=== PATIENT | female | born 1970 | race Caucasian/White ===

== ENCOUNTER 2022-12-12 16:08 | Inpatient (IN) ==
[2022-12-12] MEDS ORDERED: ALBUT/IPRATROP 3MG/0.5MG NEB 3 ML VIAL NEB ONE (16:25)
--- NOTE | 2022-12-12 16:46 | Emergency Department Note ---
Impression & Plan Acute respiratory distress, Pleural effusion, Hypoxia, Lung cancer ED Provider Note NAME: NELLI CLEMENT AGE: 52 SEX: F : 1970 ARRIVES VIA: Walk-In INFORMANT: Patient, ED PROVIDER(S): Horacio Balderas DO CHIEF COMPLAINT: Shortness of breath HPI: The patient is a 52-year-old female who presented to the emergency department through triage for an evaluation of shortness of breath. The patient has a recent diagnosis of lung cancer. This was found on a CAT scan that she had recently. She was also diagnosed with pulmonary embolism. She states that she does take blood thinners now. She states that she has been compliant with her outpatient medications. She denies having any lower extremity swelling but started noticing cough and worsening issues breathing over the last 24 hours. The patient states that she has not been seen by her family doctor for the symptoms. She has noticed a productive cough as well as blood-tinged sputum. She denies having any abdominal pain. She denies having any dysuria or frequency. ROS: See above HPI for pertinent positives & negatives. A total of 10 systems reviewed and were otherwise negative. PAST MEDICAL HISTORY: See Below PAST SURGICAL HISTORY: See Below FAMILY HISTORY: See Below SOCIAL HISTORY: See Below HOME MEDICATIONS: See Below ALLERGIES: See Below VITALS: See Below PHYSICAL EXAMINATION: GENERAL: The patient is awake and alert. She is very anxious. EYES: The conjunctivae are clear. The pupils are round and reactive. EARS, NOSE, MOUTH AND THROAT: The nose is without any evidence of any deformity. NECK: The neck is nontender and supple. RESPIRATORY: Diminished breath sounds are noted especially in the right lung field. There is significant tachypnea as well as conversational dyspnea. CARDIOVASCULAR: Tachycardic and regular heart sounds were noted to auscultation. GASTROINTESTINAL: The abdomen is soft. Abdomen is nontender. MUSCULOSKELETAL/EXTREMITIES: There is no evidence of gross deformity full range of motion is noted in the hips and shoulders. SKIN: Skin was cool and dry. Skin was mottled. Clubbing was noted in the hands. NEUROLOGIC: Patient is awake alert and oriented x3 MEDICAL DECISION MAKING: The patient is a 52-year-old female who presented to the emergency department fo r an evaluation of difficulty breathing. The patient was recently diagnosed with right-sided lung cancer with complications of pulmonary embolism as well as pleural effusion. The patient states that she started having worsening shortness of breath especially over the last few days. This became much worse today. She presented in extremis with hypoxia and tachypnea. She was placed on supplemental oxygen. She was also given a DuoNeb. On reevaluation she was much better in appearance. Her white blood cell count was elevated. Inflammatory markers were suggestive of a infection so she was covered with an antibiotic and blood cultures were obtained. She was treated with IV fluids as well. On reevaluation she was significantly improved but still was not able to be discharged home. For this reason I discussed her condition with the on-call [facility]. They have agreed to evaluate the patient in the emergency department for further management and disposition. Triage Nursing notes reviewed. Prior medical records reviewed Vital Signs: reviewed and remarkable for tachycardia and hypoxia. Differential diagnosis: Reactive airway disease, pneumonia, pneumothorax, COPD, CHF, infections, cardiac ischemia, pulmonary embolism, musculoskeletal, gastrointestinal, as well as other pathologies. ER treatment provided: See below Diagnostics interpreted by me: ECG: EKG was obtained in the emergency department. My interpretation is sinus tachycardia [address] segment depression was noted with low voltage. No previous tracing was available. Cardiac Monitoring: An order was placed for continuous cardiac monitoring. The monitor shows a rate of 116 bpm with sinus tachycardia. Laboratory studies: As stated above and show below. Imaging studies: See below. Radiographic imaging was reviewed by myself Consultation(s): I discussed this case with Dr. Leonard who is on-call for the [facility] group. ED COURSE: Procedures: none Critical Care: I have personally spent greater than 45 minutes of critical care time in the direct management of this patient. This includes bedside care, interpretation of diagnostic studies, and testing, discussion with consultants, patient, and family members, and other required patient management activities. This 45 minutes is in excess of all separately billable procedures. Past Med/Surg History Medical History Degenerative disc disease FHx: diabetes mellitus Lung cancer Pulmonary embolism Social History Smoking Status: Current every day smoker Feels Safe at Home: Yes Allergies Allergies Allergy/AdvReac Type Severity Reaction Status Date / Time No Known Allergies Allergy Unverified 12/12/22 17:04 Home Meds Home Medications Medication Instructions Recorded Confirmed albuterol sulfate 90 mcg/actuation 2 puff inhalation QID PRN 12/12/22 12/12/22 aerosol inhaler Shortness Of Breath Or Wheezing apixaban 5 mg tablet (Eliquis) 5 mg PO BID 12/12/22 12/12/22 duloxetine 30 mg capsule,delayed 30 mg PO DAILY 12/12/22 12/12/22 release fluticasone furoate 100 1 inh inhalation DAILY 12/12/22 12/12/22 mcg-vilanterol 25 mcg/dose inhalation powder (Breo Ellipta) guaifenesin 100 mg/5 mL oral liquid 200 mg PO Q4H PRN Cough 12/12/22 12/12/22 lorazepam 0.5 mg tablet 0.5 mg PO TID PRN Anxiety 12/12/22 12/12/22 melatonin 10 mg capsule 10 mg PO HS 12/12/22 12/12/22 oxycodone-acetaminophen 5 mg-325 1 tab PO Q6H PRN moderate pain 4-6 12/12/22 12/12/22 mg tablet scale prednisone 10 mg tablets in a dose 10 mg PO DIRECTED 12/12/22 12/12/22 pack Results & Data (ED) Vital Signs Vital Signs - 24 hr 12/12/22 16:15 12/12/22 16:37 12/12/22 16:38 Temperature 36.5 C Temperature Source Temporal Artery Scan Pulse Rate 121 H Pulse Rate [Apical] 121 H 126 H Pulse Rhythm Regular Respiratory Rate 22 22 28 H Respiratory Effort / Characteristics Non-Labored Spontaneous Spontaneous Labored Respiratory Depth Normal Blood Pressure 120/79 Blood Pressure [Right Arm] 108/64 Blood Pressure Mean 92 Blood Pressure Mean [Right Arm] 78 Pulse Oximetry 84 L 90 93 Oxygen Delivery Method Nasal Cannula Nasal Cannula Nebulizer Oxygen Flow Rate 15 13 9 Sepsis Recent Fever Within 48 Hours No Sepsis New/Unexplained Change in Mental Status No Sepsis Action Taken by Nursing Physician Notified 12/12/22 16:39 12/12/22 16:43 12/12/22 17:50 Temperature Temperature Source Pulse Rate 125 H Pulse Rate [Apical] 116 H Pulse Rhythm Respiratory Rate 20 Respiratory Effort / Characteristics Non-Labored Respiratory Depth Normal Blood Pressure Blood Pressure [Right Arm] 117/64 Blood Pressure Mean Blood Pressure Mean [Right Arm] 81 Pulse Oximetry 97 90 Oxygen Delivery Method Nebulizer Nebulizer Oxygen Flow Rate 9 8 Sepsis Recent Fever Within 48 Hours Sepsis New/Unexplained Change in Mental Status Sepsis Action Taken by [facility] Medications Current Medication List: was personally reviewed by me Laboratory Data Attestation: I reviewed the patient's lab results. 12/12/22 16:35 12/12/22 16:35 Lab Results 12/12/22 12/12/22 12/12/22 Range/Units 16:35 16:35 16:35 WBC 19.76 H (4.8-10.8) K/ul RBC 4.57 (4.20-5.40) M/uL Hgb 12.0 (12.0-16.0) g/dl POC Hgb (12.0-16.0) g/dl Hct 37.4 (37.0-47.0) % POC Hct (37-47) % MCV 81.8 (80.0-100.0) fL MCH 26.3 (25.0-34.0) pg MCHC 32.1 (32.0-36.0) g/dL RDW Std Deviation 56.4 H (36.4-46.3) fL RDW Coeff of Sarahi 19.8 H (11.5-14.5) % Plt Count 374 (130-400) K/uL MPV 10.5 (9.4-12.4) fL Immature Gran % (Auto) 0.6 % Neut % (Auto) 89.7 % Lymph % (Auto) 2.9 % [place] % (Auto) 6.7 % Eos % (Auto) 0.0 % Baso % (Auto) 0.1 % Neut # (Auto) 17.73 H (1.40-6.50) K/uL Lymph # (Auto) 0.57 L (1.2-3.4) K/uL [place] # (Auto) 1.33 H (0.11-0.59) K/uL Eos # (Auto) 0.00 (0-0.50) K/uL Baso # (Auto) 0.01 (0-0.2) K/uL Immature Gran # (Auto) 0.12 (0.01-0.20) K/uL PT 16.1 H (9.0-12.0) Seconds INR 1.5 H (0.9-1.1) APTT 24.4 (21.0-31.0) Seconds PTT Ratio 0.9 VBG pH (7.36-7.41) VBG pCO2 (38-50) mmHg VBG pO2 mmHg VBG HCO3 mmol/L VBG O2 Saturation % VBG Base Excess mEq/L POC Sodium (135-144) mmol/L Sodium (136-145) mmol/L POC Potassium (3.3-5.0) mmol/L Potassium (3.5-5.1) mmol/L POC Chloride (101-112) mmol/L Chloride (98-107) mmol/L Carbon Dioxide (21-32) mmol/L POC Total CO2 (24-31) mmol/L Anion Gap (3-11) POC Anion Gap (16-25) mmol/L POC BUN (7-18) mg/dl BUN (6-23) mg/dl Creatinine (0.6-1.2) mg/dl POC Creatinine (0.6-1.3) mg/dl Est Cr Clr Drug Dosing ml/min Est GFR ( Amer) ml/min Est GFR (Non-Af Amer) ml/min BUN/Creatinine Ratio (10-20) Glucose (70-99(Fasting)) mg/dl POC Glucose (other) (70-99) mg/dl Lactate (0.4-2.0) mmol/L Calcium (8.6-10.3) mg/dl POC Ioniz Calcium Jose Raul (1.12-1.32) mmol/l Magnesium (1.7-2.4) mg/dl Total Bilirubin (0.2-1.0) mg/dl Direct Bilirubin (0-0.2) mg/dl AST (13-39) U/L ALT (7-52) U/L Alkaline Phosphatase (34-104) U/L Troponin I High Sens (0-14) pg/ml Total Protein (6.0-8.3) gm/dl Albumin (3.4-5.0) gm/dl Procalcitonin (0-0.5) ng/ml SARS-CoV-2 (PCR) (Negative) Influenza Type A (PCR) (Neg) Influenza Type B (PCR) (Neg) RSV (RT-PCR) (Neg) Blood Type O Positive Antibody Screen NEGATIVE 12/12/22 12/12/22 12/12/22 Range/Units 16:35 16:35 16:35 WBC (4.8-10.8) K/ul RBC (4.20-5.40) M/uL Hgb (12.0-16.0) g/dl POC Hgb (12.0-16.0) g/dl Hct (37.0-47.0) % POC Hct (37-47) % MCV (80.0-100.0) fL MCH (25.0-34.0) pg MCHC (32.0-36.0) g/dL RDW Std Deviation (36.4-46.3) fL RDW Coeff of Sarahi (11.5-14.5) % Plt Count (130-400) K/uL MPV (9.4-12.4) fL Immature Gran % (Auto) % Neut % (Auto) % Lymph % (Auto) % [place] % (Auto) % Eos % (Auto) % Baso % (Auto) % Neut # (Auto) (1.40-6.50) K/uL Lymph # (Auto) (1.2-3.4) K/uL [place] # (Auto) (0.11-0.59) K/uL Eos # (Auto) (0-0.50) K/uL Baso # (Auto) (0-0.2) K/uL Immature Gran # (Auto) (0.01-0.20) K/uL PT (9.0-12.0) Seconds INR (0.9-1.1) APTT (21.0-31.0) Seconds PTT Ratio VBG pH (7.36-7.41) VBG pCO2 (38-50) mmHg VBG pO2 mmHg VBG HCO3 mmol/L VBG O2 Saturation % VBG Base Excess mEq/L POC Sodium (135-144) mmol/L Sodium 135 L (136-145) mmol/L POC Potassium (3.3-5.0) mmol/L Potassium 4.2 (3.5-5.1) mmol/L POC Chloride (101-112) mmol/L Chloride 92 L (98-107) mmol/L Carbon Dioxide 29 (21-32) mmol/L POC Total CO2 (24-31) mmol/L Anion Gap 14 H (3-11) POC Anion Gap (16-25) mmol/L POC BUN (7-18) mg/dl BUN 29 H (6-23) mg/dl Creatinine 0.61 (0.6-1.2) mg/dl POC Creatinine (0.6-1.3) mg/dl Est Cr Clr Drug Dosing 88.9 ml/min Est GFR ( Amer) 120.0 ml/min Est GFR (Non-Af Amer) 103.5 ml/min BUN/Creatinine Ratio 47.5 H (10-20) Glucose 125 H (70-99(Fasting)) mg/dl POC Glucose (other) (70-99) mg/dl Lactate 5.1 H* (0.4-2.0) mmol/L Calcium 8.8 (8.6-10.3) mg/dl POC Ioniz Calcium Jose Raul (1.12-1.32) mmol/l Magnesium 1.9 (1.7-2.4) mg/dl Total Bilirubin 0.8 (0.2-1.0) mg/dl Direct Bilirubin 0.2 (0-0.2) mg/dl AST 34 (13-39) U/L ALT 26 (7-52) U/L Alkaline Phosphatase 262 H (34-104) U/L Troponin I High Sens 19.8 H (0-14) pg/ml Total Protein 5.9 L (6.0-8.3) gm/dl Albumin 2.9 L (3.4-5.0) gm/dl Procalcitonin 69.04 H (0-0.5) ng/ml SARS-CoV-2 (PCR) (Negative) Influenza Type A (PCR) (Neg) Influenza Type B (PCR) (Neg) RSV (RT-PCR) (Neg) Blood Type Antibody Screen 12/12/22 12/12/22 12/12/22 Range/Units 16:35 16:42 16:42 WBC (4.8-10.8) K/ul RBC (4.20-5.40) M/uL Hgb (12.0-16.0) g/dl POC Hgb 13.3 (12.0-16.0) g/dl Hct (37.0-47.0) % POC Hct 39 (37-47) % MCV (80.0-100.0) fL MCH (25.0-34.0) pg MCHC (32.0-36.0) g/dL RDW Std Deviation (36.4-46.3) fL RDW Coeff of Sarahi (11.5-14.5) % Plt Count (130-400) K/uL MPV (9.4-12.4) fL Immature Gran % (Auto) % Neut % (Auto) % Lymph % (Auto) % [place] % (Auto) % Eos % (Auto) % Baso % (Auto) % Neut # (Auto) (1.40-6.50) K/uL Lymph # (Auto) (1.2-3.4) K/uL [place] # (Auto) (0.11-0.59) K/uL Eos # (Auto) (0-0.50) K/uL Baso # (Auto) (0-0.2) K/uL Immature Gran # (Auto) (0.01-0.20) K/uL PT (9.0-12.0) Seconds INR (0.9-1.1) APTT (21.0-31.0) Seconds PTT Ratio VBG pH 7.49 H (7.36-7.41) VBG pCO2 42 (38-50) mmHg VBG pO2 22 mmHg VBG HCO3 32 mmol/L VBG O2 Saturation < 60.0 % VBG Base Excess 7.8 mEq/L POC Sodium 131 L (135-144) mmol/L Sodium (136-145) mmol/L POC Potassium 4.1 (3.3-5.0) mmol/L Potassium (3.5-5.1) mmol/L POC Chloride 92 L (101-112) mmol/L Chloride (98-107) mmol/L Carbon Dioxide (21-32) mmol/L POC Total CO2 28 (24-31) mmol/L Anion Gap (3-11) POC Anion Gap 16.0 (16-25) mmol/L POC BUN 26 H (7-18) mg/dl BUN (6-23) mg/dl Creatinine (0.6-1.2) mg/dl POC Creatinine 0.7 (0.6-1.3) mg/dl Est Cr Clr Drug Dosing ml/min Est GFR ( Amer) ml/min Est GFR (Non-Af Amer) ml/min BUN/Creatinine Ratio (10-20) Glucose (70-99(Fasting)) mg/dl POC Glucose (other) 131 H (70-99) mg/dl Lactate (0.4-2.0) mmol/L Calcium (8.6-10.3) mg/dl POC Ioniz Calcium Jose Raul 1.03 L (1.12-1.32) mmol/l Magnesium (1.7-2.4) mg/dl Total Bilirubin (0.2-1.0) mg/dl Direct Bilirubin (0-0.2) mg/dl AST (13-39) U/L ALT (7-52) U/L Alkaline Phosphatase (34-104) U/L Troponin I High Sens (0-14) pg/ml Total Protein (6.0-8.3) gm/dl Albumin (3.4-5.0) gm/dl Procalcitonin (0-0.5) ng/ml SARS-CoV-2 (PCR) NEGATIVE (Negative) Influenza Type A (PCR) Negative (Neg) Influenza Type B (PCR) Negative (Neg) RSV (RT-PCR) Negative (Neg) Blood Type Antibody Screen Administered Medications Fentanyl Citrate (Fentanyl Citrate Pf 100 Mcg/2 Ml Vial) 50 mcg IV Q15M PRN PRN Reason: Pain Stop: 12/26/22 17:17 Last Admin: 12/12/22 17:26 Dose: 50 mcg Documented By: SNEHA Ceftriaxone Sodium (Rocephin) 2,000 mg in 70 mls @ 140 mls/hr IV NOW STA Stop: 12/12/22 18:03 Last Admin: 12/12/22 17:50 Dose: 140 mls/hr Documented By: SNEHA Discontinued Medications Albuterol (Albut/Ipratrop 3mg/0.5mg Neb 3 Ml Vial) 12 ml NEB ONE ONE; Protocol Stop: 12/12/22 16:26 Last Admin: 12/12/22 16:36 Dose: 12 ml Documented By: ASAD Sodium Chloride (Nss 1000ml) 1,000 mls @ 999 mls/hr IV .Q1H1M ONE Stop: 12/12/22 17:53 Last Admin: 12/12/22 17:26 Dose: 999 mls/hr Documented By: SNEHA Ondansetron HCl (Ondansetron Inj 2 Mg/Ml 2 Ml Vial) 4 mg IV NOW STA Stop: 12/12/22 17:19 Last Admin: 12/12/22 17:26 Dose: 4 mg Documented By: SNEHA Imaging Data Attestation: I personally reviewed and interpreted this imaging study as follows: My Impression: 1 view chest x-rays obtained in the emergency department. My interpretation is large right pleural effusion. Final report below. Radiologist's Impression: Chest X-Ray 12/12/22 16:20 XR chest 1V portable HISTORY: 52 years-old Female Sepsis acute sepsis COMPARISON: MR chest 04/16/2012 TECHNIQUE: AP view of the chest FINDINGS: Cardiac silhouette is enlarged. There is complete opacification of the right hemithorax. Mild nonspecific interstitial coarsening of the left lung may be on a chronic basis. No left-sided pneumothorax or left-sided lobar airspace c onsolidation. Bones appear grossly intact. IMPRESSION: Complete opacification of the right hemithorax may be secondary to a large pleural effusion. Correlate with prior imaging. ACT 112: Negative or not required by law. The above report was generated using voice recognition software. It may contain grammatical, syntax or spelling errors. Electronically signed by: Maikel Peñaloza M.D. 12/12/2022 5:34 PM Discharge Plan Visit Data Chief Complaint: Respiratory Distress Stated Complaint: RESPIRATORY DISTRESS,STAGE 4 LUNG CANCER ED Provider: Horacio Balderas Discharge Problem: Acute respiratory distress, Pleural effusion, Hypoxia, Lung cancer Patient Disposition: Being Evaluated by Hospitalist Forms Stand Alone Forms: My [facility] Prescriptions Prescriptions: No Action duloxetine 30 mg Capsule,Delayed Release(Dr/Ec) 30 mg PO DAILY Eliquis 5 mg Tablet 5 mg PO BID melatonin 10 mg capsule 10 mg PO HS lorazepam 0.5 mg Tablet 0.5 mg PO TID PRN (Reason: Anxiety) fluticasone furoate-vilanterol [Breo Ellipta] 100-25 mcg/dose Blister With Device 1 inh INHALATION DAILY guaifenesin [Robitussin] 100 mg/5 mL Liquid 200 mg PO Q4H PRN (Reason: Cough) oxycodone-acetaminophen 5-325 mg Tablet 1 tab PO Q6H PRN (Reason: moderate pain 4-6 scale) albuterol sulfate 90 mcg/actuation Hfa Aerosol Inhaler 2 puff INHALATION QID PRN (Reason: Shortness Of Breath Or Wheezing) prednisone 10 mg Tablets,Dose Pack 10 mg PO DIRECTED Rx Instructions: see taper instructions ordered 12/01/22 take 4 tablets daily x 3 days,then 3 tabs x 3 days,2 tabs x 3 days,1 tab x 3 days Referrals Referrals: Guillermo Edge M.D. [Outside Practitioners] -
[2022-12-12 16:53] LABS: Base Excess VBG 7.8 mEq/L; HCO3 VBG 32 mmol/L; Oxygen Saturation VBG < 60.0 %; PCO2 VBG 42 mmHg (38-50); PO2 VBG 22 mmHg; pH VBG 7.49 (7.36-7.41)
[2022-12-12] MEDS ORDERED: SODIUM CHLORIDE 0.9% 1000ML 1,000 ML IV ONE (16:53)
[2022-12-12 16:55] LABS: iSTAT Creatinine 0.7 mg/dl (0.6-1.3); iSTAT Hemoglobin 13.3 g/dl (12.0-16.0); iSTAT Ionized Calcium 1.03 mmol/l (1.12-1.32); iSTAT Potassium 4.1 mmol/L (3.3-5.0)
[2022-12-12 17:06] LABS: Basophils # (auto) 0.01 K/uL (0-0.2); Basophils % (auto) 0.1 %; Hematocrit (blood only) 37.4 % (37.0-47.0); Immature Granulocytes # (auto) 0.12 K/uL (0.01-0.20); Immature Granulocytes % (auto) 0.6 %; Lymphocytes # (auto) 0.57 K/uL (1.2-3.4); Lymphocytes % (auto) 2.9 %; Mean Corpuscular Hemoglobin 26.3 pg (25.0-34.0); Mean Corpuscular Hgb Conc 32.1 g/dL (32.0-36.0); Mean Corpuscular Volume 81.8 fL (80.0-100.0); Mean Platelet Volume 10.5 fL (9.4-12.4); Monocytes # (auto) 1.33 K/uL (0.11-0.59); Monocytes % (auto) 6.7 %; Neutrophils # (auto) 17.73 K/uL (1.40-6.50); Neutrophils % (auto) 89.7 %; Platelet Count 374 K/uL (130-400); RDW Coefficient of Variation 19.8 % (11.5-14.5); RDW Standard Deviation 56.4 fL (36.4-46.3); Red Blood Count 4.57 M/uL (4.20-5.40); White Blood Count 19.76 K/ul (4.8-10.8)
[2022-12-12 17:13] LABS: Albumin Level 2.9 gm/dl (3.4-5.0); BUN Creatinine Ratio 47.5 (10-20); Bilirubin Direct 0.2 mg/dl (0-0.2); Bilirubin,Total 0.8 mg/dl (0.2-1.0); Calcium 8.8 mg/dl (8.6-10.3); Creatinine Clr Calc Pharmacy 88.9 ml/min; Est GFR (Non-African American) 103.5 ml/min; Magnesium 1.9 mg/dl (1.7-2.4); Potassium 4.2 mmol/L (3.5-5.1); Total Protein 5.9 gm/dl (6.0-8.3)
[2022-12-12 17:18] LABS: Troponin I High Sensitivity 19.8 pg/ml (0-14)
[2022-12-12] MEDS ORDERED: ONDANSETRON INJ 2 MG/ML 2 ML VIAL IV STA (17:18)
[2022-12-12 17:22] LABS: INR 1.5 (0.9-1.1); Partial Thromboplastin Ratio 0.9; Partial Thromboplastin Time 24.4 Seconds (21.0-31.0); Prothrombin Time 16.1 Seconds (9.0-12.0)
[2022-12-12] MEDS: fentaNYL citrate PF 100 MCG/2 ML VIAL IV PRN ×3 (17:26→19:47)
[2022-12-12] MEDS ORDERED: CALCIUM GLUCONATE 1,000 MG/60 ML BAG IV ONE (17:30)
[2022-12-12] MEDS ORDERED: SODIUM CHLORIDE 0.9% 1000ML 500 ML IV ONE (17:34)
[2022-12-12] MEDS ORDERED: cefTRIAXone SODIUM 2,000 MG/70 ML BAG IV STA (17:34)
--- NOTE | 2022-12-12 17:35 | XRay Report ---
XR chest 1V portable HISTORY: 52 years-old Female Sepsis acute sepsis COMPARISON: MR chest 04/16/2012 TECHNIQUE: AP view of the chest FINDINGS: Cardiac silhouette is enlarged. There is complete opacification of the right hemithorax. Mild nonspec ific interstitial coarsening of the left lung may be on a chronic basis. No left-sided pneumothorax o r left-sided lobar airspace consolidation. Bones appear grossly intact. IMPRESSION: Complete opacification of the right hemithorax may be secondary to a large pleural effusi on. Correlate with prior imaging. ACT 112: Negative or not required by law. The above report was generated using voice recognition software. It may contain grammatical, syntax o r spelling errors. Electronically signed by: Maikel Peñaloza M.D. 12/12/2022 5:34 PM
[2022-12-12 17:41] LABS: Influenza A virus by PCR Negative (Neg); Influenza B virus by PCR Negative (Neg); RSV by PCR Negative (Neg); SARS CoV2 RNA(COVID-19) Ceph NEGATIVE (Negative)
--- NOTE | 2022-12-12 18:57 | History & Physical Report ---
Date of Service December 12, 2022 Assessment & Plan (1) Pleural effusion: Plan: -Seen on CXR and CT chest with complete white out of right lung -Patient is on Eliquis, last dose 12/11 evening. Will hold Eliquis for anticipated thoracentesis (2) Respiratory failure with hypoxia: Plan: -Currently she is on 10L Oxymask (she reportedly was discharged on 10L-15L NC) -Currently with no respiratory distress but with her significant CT chest/CXR findings, case was discussed with ICU. Patient will be placed in PCU for now and closely monitored. -Will cover with zosyn and vancomycin pending blood cultures, check MRSA swab and blood cultures -repeat ABG pending (3) Non-small cell lung cancer: Plan: -Patient is overwhelmed with her diagnosis and has not followed up with any providers for this new diagnosis. She still needs a PET scan and MRI brain which will need to be done as an outpatient. Would recommend calling her PCP to update them prior to discharge (4) Pulmonary embolism: Plan: -Was on Eliquis which will be held for upcoming thoracentesis -Will place on heparin drip Plan DVT ppx -Heparin drip Code Status -Full Code Disposition -PCU Family was present at bedside. All questions were answered. History of Present Illness Chief Complaint: shortness of breath Primary Care Provider: Dann Pierson PA-C Ms Sunshine Hager is a 52 year old female with a 30-40 pack year smoking history was recently admitted at [facility] from 11/14/22-12/01/22 for cough and shortness of breath. There, she was diagnosed with stage 4 non small cell lung cancer on the right (thoracentesis 11/16/22 reportedly 1L fluid removed) as well as a PE on the right side. She received therapeutic lovenox while hospitalized and transitioned to eliquis at discharge. She reports that at the time of discharge she was using 10L NC at rest and 15L NC with exertion. She presents to [facility] today with worsening shortness of breath. She has not seen anyone in follow up since her discharge from [facility] and didn't know she had a follow up appointment with her PCP (12/07) and Palliative Care (12/13), she didn't know who to follow up with for her malignancy and pleural effusion "they told me I need a PET scan, that I need to see a lung doctor and also get chemotherapy but nothing has been set up". She stated they mentioned a catheter (PleurX?) but that on repeat imaging she had no recurrent pleural effusion so one wasn't placed. Of note, she was unable to get an MRI there due to severe claustrophobia. PMHx- none PSHx- thoracentesis SHx- 30-40 pack year smoking history, social drinker, no illicit drugs FHx- lung cancer in father who was also a smoker Allergies Allergy/AdvReac Type Severity Reaction Status Date / Time No Known Allergies Allergy Unverified 12/12/22 17:04 Home Medications Medication Instructions Recorded Confirmed Type albuterol sulfate 90 mcg/actuation 2 puff inhalation QID PRN 12/12/22 12/12/22 History aerosol inhaler Shortness Of Breath Or Wheezing apixaban 5 mg tablet (Eliquis) 5 mg PO BID 12/12/22 12/12/22 History duloxetine 30 mg capsule,delayed 30 mg PO DAILY 12/12/22 12/12/22 History release fluticasone furoate 100 1 inh inhalation DAILY 12/12/22 12/12/22 History mcg-vilanterol 25 mcg/dose inhalation powder (Breo Ellipta) guaifenesin 100 mg/5 mL oral liquid 200 mg PO Q4H PRN Cough 12/12/22 12/12/22 History lorazepam 0.5 mg tablet 0.5 mg PO TID PRN Anxiety 12/12/22 12/12/22 History melatonin 10 mg capsule 10 mg PO HS 12/12/22 12/12/22 History oxycodone-acetaminophen 5 mg-325 1 tab PO Q6H PRN moderate pain 4-6 12/12/22 12/12/22 History mg tablet scale prednisone 10 mg tablets in a dose 10 mg PO DIRECTED 12/12/22 12/12/22 Hi story pack Past Med/Surg History Medical History (Updated 12/12/22 @ 20:15 by Rhona Leonard MD) Degenerative disc disease FHx: diabetes mellitus Lung cancer Pulmonary embolism Social History Smoking Status: Current every day smoker Feels Safe at Home: Yes Review of Systems Review of Systems: As above in HPI, remaining ROS otherwise negative Physical Exam Physical Exam: Appears older than stated age, thin, cachetic ENMT: normocephalic, atraumatic, mucous membane moist Respiratory: no accessory muscle use, able to speak in complete sentences, no breath sounds right lung. Left lung with moderate airflow Cardiovascular: tachycardic, no murmurs/rubs/gallops Gastrointestinal (Abdomen): soft, non tender, non distended Musculoskeletal: No pedal edema, no calf tenderness, +clubbing of fingers Neurologic: awake, alert, spontaneously moving extremities Psychiatric: affect normal, speech linear, non pressured Results & Data Results & Data Vital Signs (Past 12 Hours) Vital Signs Temp Pulse Pulse Resp BP BP Pulse Ox 12/12/22 18:50 117 H 27 H 120/76 97 12/12/22 18:43 116 H 24 114/70 95 12/12/22 17:50 116 H 20 117/64 90 12/12/22 16:43 125 H 12/12/22 16:39 97 12/12/22 16:38 126 H 28 H 108/64 93 12/12/22 16:37 121 H 22 90 12/12/22 16:15 36.5 C 121 H 22 120/79 84 L O2 Del Method O2 Flow Rate 12/12/22 18:50 Oxymask 10 12/12/22 18:43 Oxymask 10 12/12/22 17:50 Nebulizer 8 12/12/22 16:43 12/12/22 16:39 Nebulizer 9 12/12/22 16:38 Nebulizer 9 12/12/22 16:37 Nasal Cannula 13 12/12/22 16:15 Nasal Cannula 15
--- NOTE | 2022-12-12 19:08 | CT Scan Report ---
CT chest diagnostic wo con CT DOSE: 285.17 mGy.cm CLINICAL HISTORY: 52 years-old Female with SOB. Acute shortness of breath TECHNIQUE: Multiaxial CT images of the chest were performed without contrast. A dose lowering techni que was utilized adhering to the principles of ALARA. COMPARISON: Chest radiograph of same day FINDINGS: Limited exam without the use of IV contrast. Multinodular thyroid. Pathologically enlarged supraclavicular, mediastinal and bilateral hilar lympha denopathy includes precarinal lymph nodes measuring up to 3.7 x 1.7 cm. Small pericardial effusion. N o thoracic aortic aneurysm. Large right pleural effusion with complete heterogeneous consolidation of the right lung. There is opacification of the right upper, middle and lower lobe bronchi with secret ions noted within the right mainstem bronchus and bronchus intermedius. Mild pleural thickening of th e right hemithorax. Severe pulmonary emphysema. No suspicious lesions identified within the left lung . There is a least 1 heterogeneous mass in the lateral left hepatic lobe measuring up to 3.5 cm. Asymme tric right perinephric stranding. Heterogeneity of the adrenal glands with pathologic upper abdominal lymphadenopathy. There is asymmetric skin thickening of the right breast with heterogeneity of the p arenchyma. No acute fracture identified. No destructive bone lesion. IMPRESSION: 1. Largely likely malignant right pleural effusion. There is complete heterogeneous consolidation of the right lung, compatible with the patient's reported diagnosis of primary bronchogenic malignancy. 2. Opacification of the right upper, middle and lower lobar bronchi. 3. Metastatic supraclavicular, mediastinal, hilar, internal mammary and upper abdominal lymphadenopat hy. 4. Hepatic and possible adrenal metastasis. 5. Severe pulmonary emphysema. 6. Asymmetric skin thickening of the right breast. Correlate with clinical exam findings. ACT 112: Negative or not required by law. Electronically signed by: Maikel Peñaloza M.D. 12/12/2022 7:06 PM
[2022-12-12] MEDS ORDERED: VANCOMYCIN CONSULT ACTIVE PRN (20:33)
[2022-12-12] MEDS ORDERED: VANCOMYCIN HCL 1,000 MG in SODIUM CHLORIDE 0.9% 250 ML IV STA (20:33)
[2022-12-12] MEDS ORDERED: Heparin IV Adult Wt-Based Standard *NO* Bolus Protocol IV STA (20:34)
[2022-12-12 20:42] LABS: Base Excess ABG 6.5 mEq/L (-9-1.8); HCO3 ABG 31 mmol/L (19-24); Oxygen Saturation ABG 97.9 % (90-95); PCO2 ABG 45 mmHg (35-46); PO2 ABG 89 mmHg (80-95); pH ABG 7.45 (7.35-7.45)
[2022-12-12] MEDS ORDERED: VANCOMYCIN HCL 1,250 MG in SODIUM CHLORIDE 0.9% 250 ML IV STA (20:46)
[2022-12-12 20:52] LABS: Allen Test Pos (Pos)
[2022-12-12] MEDS ORDERED: PIPERACILLIN/TAZOBACTAM 4.5 GM (over 30 mins) IV ONE (21:00)
[2022-12-12] MEDS: HEPARIN SODIUM/DEXTROSE 25,000 UNITS/500 ML BAG IV SCH (21:26)
[2022-12-12] MEDS ORDERED: POLYETHYLENE (MIRALAX) 17 GM PACK PO PRN (22:08)
[2022-12-12] MEDS ORDERED: ACETAMINOPHEN 325 MG TAB PO PRN (22:08)
[2022-12-12] MEDS ORDERED: FUROSEMIDE INJ 20 MG/2 ML VIAL IV ONE (22:08)
[2022-12-12] MEDS ORDERED: MAGNESIUM HYDROXIDE SUSP 30 ML UDC PO PRN (22:08)
[2022-12-12 22:37] LABS: Appearance Urine Cloudy (Clear); Blood Urine Negative (Negative); Color Urine Dark Yellow; Epithelial Cell Urine Auto >30 /lpf (0-5); Glucose Urine UA Negative (Negative); Ketones Urine Trace (Negative); Leukocyte Esterase Urine Negative (Negative); Nitrite Urine Negative (Negative); Protein Urine 1+ (Negative); Specific Gravity Urine 1.031 (1.000-1.030); Urobilinogen Urine Negative (Negative); pH Urine 5.5 (4.5-7.5)
[2022-12-12 22:43] LABS: Bilirubin Urine 1+ (Negative)
[2022-12-12] MEDS: MoRPHine SULFATE 2 MG/ML CARP IV PRN (22:44)
[2022-12-12 22:53] LABS: Mucus Urine Present (None Prsent)
[2022-12-12 22:54] LABS: Bacteria Urine Automated 2+ (Negative)
[2022-12-13] MEDS ORDERED: LORazepam 0.5 MG TAB PO STA (00:20)
[2022-12-13] MEDS ORDERED: oxyCODONE HCL IR 5 MG TAB (IMMEDIATE RELEASE) PO STA (00:20)
[2022-12-13] MEDS: guaiFENesin SUGAR FREE 200 MG/10 ML UDC PO PRN (02:35)
[2022-12-13 04:11] LABS: Partial Thromboplastin Ratio 1.1
[2022-12-13] MEDS ORDERED: HEPARIN SOD (PORCINE) 1000 UNIT/ML IV ONE (04:45)
[2022-12-13] MEDS: MoRPHine SULFATE 2 MG/ML CARP IV PRN ×2 (04:50→09:43)
[2022-12-13] MEDS: PIPERACILLIN/TAZOBACTAM 4.5 GM in DEXTROSE 5% 100 ML IV SCH ×3 (04:56→19:47)
[2022-12-13] MEDS: VANCOMYCIN HCL 1,000 MG in SODIUM CHLORIDE 0.9% 250 ML IV SCH ×2 (06:10→18:06)
[2022-12-13] MEDS: DULoxetine HCL 30 MG CAP PO SCH (08:10)
[2022-12-13] MEDS: FLUTICASONE/VILANTEROL 100/25MCG 14 PUFFS/INHALER INH SCH (08:10)
--- NOTE | 2022-12-13 10:09 | Palliative Care Consultation ---
Date of Consultation December 13, 2022 Assessment & Plan (1) Palliative care by specialist: Met with pt and provided overview of Palliative Medicine, a subspecialty that provides specialized medical care for people living with a serious illness by offering a focus on quality of life. Palliative Medicine is often conflated with hospice: I advised patient/family that Palliative and hospice can be partners but we are not the same. It is important to understand the difference so that we may be informed, and not afraid. Palliative Medicine works to improve QOL through reduction of symptom burden/more control over their illness, for both the patient and family. Palliative medicine clinicians are board certified, specially-trained and another member of the patient's medical care team. We often provide an extra layer of support because our care is based on the needs of the patient, not the prognosis; as such, it's appropriate at any age/advancing stage of a serious illness and can be provided along with curative treatment. Palliative Medicine clinicians are also trained in advanced communication methodologies, to facilitate complex discussions about advanced illness planning, which are needed to help assure that the treatment choices match the patient's goals, aka delivering Goal Concordant care. Finally, we discussed that hospice is a visiting nurse service that focuses on care delivered at the very end of life for patients with terminal illness, with life expectancy less than 6 month. (2) Advanced care planning/counseling discussion: 60min face to face ACP discussion with pt at bedside: We reviewed that all chronic/progressive disease has a declining trajectory over time where facets of patient self-identity and independence are lost. Every acute event leads to a further decline, resulting- many times, in a new baseline. Advised that the greatest priority is to determine what matters most to pt, then family and to develop a plan of care that is aligned with those priorities. Advance illness planning conversations are conducted to review goals and expectations, support shared decision-making, and engage in disease specific advance care planning. This type of advance care planning is sometimes referred to as 'preparedness planning. It is used to review the risks and benefits of offered therapy, elicit and deepen understanding of the underlying illness and therapeutic options, ensure adequate psychosocial support, address existential concerns and coping, and engage in end-of-life planning. Preparedness planning is not meant to replace informed consent discussions. Palliative medicine plays a role in the process of deepening a patients understanding of this specific medical intervention and ensuring this treatment aligns with their goals of care remains a central tenet of the planning conversation. We discussed code status and I advised her about CPR survival: Only about 10% of patients who have [id number] sudden cardiac arrest survive to hospital discharge, with many survivors having neurologic impairment. This rate is even l ower among patients with serious coexisting conditions, ie chance of survival to hospital discharge for in-hospital CPR in older people is low to moderate (15%) and decreases with age, comorbidities, performance status and frailty: for pts > 70 yo, more than half of the patients who initially survived resuscitation in the hospital before hospital discharge. The pooled survival to discharge af ter in-hospital CPR was 18% for patients between 70 and 79 years old, 15% for patients between 80 and 89 years old and 11% for patients of 90 years and older. (Alberto VINSON, Bunny LJ, Leeann F, et al. Trends in short- and long-term survival among [id number] cardiac arrest patients alive at hospital arrival. Circulation 2014;130:6171-3999. AND Ayse C, Taj T, Marcel R, et al. Performance of clinical risk scores to predict mortality and neurological outcome in cardiac arrest patients. Resuscitation 2019;136:21-29.) Sunshine states this has been too much for her and she cannot think about anything anymore. She perceives everyone coming into her room is asking about CPR and code status from [place] and now here. She states she and have spoken and he wants her to have everything done, put me on machines, resuscitate me" but she admits she isn't sure what she wants because she refuses to think about it and will not do so for now. We spoke about what she might feel are afew goals for herself right now and she replied she doesn't know and feels that she, her and her daughters are simply too stunned being told she has stage V lung cancer and not long to live. She has not been seen by oncology here but says she would prefer to have cancer treatment at [facility]. Encouraged her to speak with oncology re her concerns when they come to see her. Advised her she needs more testing to complete her cancer work up, so we are still in an information seeking stage. Advised and encouraged her to keep an open mind and recognize that many cancer today are being treated like a chronic illness - so, they aren't curable but potentially may be curable with regular/daily meds. We discussed that cancer patients experience significant symptom and psychosocial burden for which the early integration of supportive oncology with palliative medicine (early findings from the research of Nano) help address a growing need to manage patients comprehensively, with an emphasis on symptom control, nutritional and psychosocial support, and pharmaceutical review. Palliative care consultation in patients with advanced cancer is not only associated with an improvement in the quality of oncology care, but also a reduction in downstream healthcare utilization. In Thong et al 2017, when the automatic palliative medicine consult was triggered by specific oncology criteria, 30-day readmission rates and use of chemotherapy after discharge declined, whereas hospice referrals and uptake of support services post-discharge increased. Patients with advanced cancer admitted to an acute care hospital often have short life expectancies and high morbidity - for these patients, the integration of palliative care has improved symptom burden, reduced patient and caregiver distress, increased referral to hospice, and improved outcomes. I specifically shared with patient that my concerns for her are that she has a fairly advanced COPD/smoking related emphysema in the context of an advanced cancer. I reviewed the nature of COPD: the ATS and ERS define COPD as a preventable and treatable disease state characterized by airflow limitation that is not fully reversible. The airflow limitation is usually progressive and associated with a chronic inflammatory response of the lungs to noxious particles or gases. COPD is incurable and will worsen over time. Sometimes when patients stop smoking, the progression will slow down, but all COPD over time will get worse. Medications become less effective and do not work as well; in general these patients experience a significant decline in QOL. Patients with COPD constitute a large group of symptomatic patients with a common, chronic, and generally progressive respiratory disorder. Recent studies indicate that patients in this group, on the whole, receive less palliative care in their terminal phase than patients with lung cancer. We discussed that Palliative care can begin when a patient becomes symptomatic and is usually concurrent with restorative and life-prolonging care. Palliative care is titrated, analogous to curative/restorative care, to meet the needs of the patient and family in accord with their preferences. We will help manage their symptoms and assist with goals of care discussions. (3) Cancer related pain: Remains very severe and uncontrolled, exacerbated by poorly controlled dyspnea Will increase to MS 3mg IV q3h, Hold for somnolence or RR less than 14, please document RR when administering. Will add scheduled MSIR 15mg PO q6h prn while awake, Hold for somnolence or RR less than 14, please document RR when administering. (4) Dyspnea and respiratory abnormalities: See above (5) Non-small cell lung cancer: See above (6) Anxiety: (7) Pleural effusion: awaiting IR guided thoracentesis (8) Respiratory failure with hypoxia: (9) COPD, severe: no prior pFT on file. Will need to est care with pulm medicine. Plan * Cancer and dyspnea mgt orders written. * Extensive discussion re ACP/goals of care and Code status - she refuses to further discuss these issues apart from a firm insistence that this information was absolutely shocking, does not seem accurate and "should have been caught before it came to this." She refuses to discuss topics around prognosis and mortality. She is angry to hear this is not a curable cancer and steadfastly disagrees it is smoking related. * No formal PFT found, pt cannot recall having testing. Will need to est care with pulm med outpatient clinic for ongoing mgt of her severe smoking related COPD (PFT, oximetry, sleep eval, consider pulm rehab) * I reinforced the strong evidence supporting the initiation of Palliative Care into the management of this patient with advanced met lung cancer; palliative care, when provided alongside oncologic care, leads to improved QOL, fewer depressive symptoms, better prognosis understanding and longer median survival darin when given the overall poor prognosis and QOL issues at hand. (Nita et al . (2010). Early palliative care for patients with metastatic sob-uexfi-iybu lung cancer. [place] J of Med 363(9), 733-742. Doi: 10.1056/[id number]. ) * Await oncology eval - pt was advised she needs to complete a cancer staging workup and testing, some of which will be outpatient such as as PET-CT. She verbalized understanding and was in agreement/verbalized understanding. * I have updated nursing, oncology and primary team. Thank you for allowing us to participate in the ongoing care of this patient. Please don't hesitate to call or page with any additional concerns. Dr. Zarina Arthur [place] Director, Palliative Care History of Present Illness Reason for Consultation: Advance lung cancer, recent diagnosis. GOC discuss Attending Physician: Naveen Olmstead MD History of Present Illness Ms Sunshine Hager is a 52 year old female with a 30-40 pack year smoking history was recently admitted at [facility] from 11/14/22-12/01/22 for cough and shortness of breath. There, she was diagnosed with stage 4 non small cell lung cancer on the right (thoracentesis 11/16/22 reportedly 1L fluid removed) as well as a PE on the right side. She received therapeutic lovenox while hospitalized and transitioned to eliquis at discharge. She reports that at the time of discharge she was using 10L NC at rest and 15L NC with exertion. She presents to [facility] for worsening shortness of breath. She has not seen anyone in follow up since her discharge from [facility] (reported on admission that she "didn't know she had a follow up appointment with her PCP (12/07) and Palliative Care (12/13), she didn't know who to follow up with for her malignancy and pleural effusion "they told me I need a PET scan, that I need to see a lung doctor and also get chemotherapy but nothing has been set up".) Patient states she was also told she may need a long-term drainage catheter (PleurX?) but that on repeat imaging she had no recurrent pleural effusion so one wasn't placed. Of note, she was unable to get an MRI there due to severe claustrophobia. Sunshine reports significant pain and anxiety. She reports 7-8/10 pain along right anterior chest to shoulder and into her back then own her back on both sides. She reports long standing anxiety which is not intensified with this current medical crisis. She states she has been told by [place] "you don't have long to live" and "everyone keeps asking me about CPR and being on life support, I am just tired of it!" She states she is "stunned" to hear she has Stage IV lung cancer and cannot believe this is happening to her. She tells me she was told this was likely from her heavy smoking but she does not perceive this to be accurate and feels "something along the way was missed and then this caner just got out of control. If it's from the smoking why wasn't anyone looking for it?" Allergies Allergy/AdvReac Type Severity Reaction Status Date / Time No Known Allergies Allergy Unverified 12/12/22 17:04 Home Medications Medication Instructions Recorded Confirmed Type albuterol sulfate 90 mcg/actuation 2 puff inhalation QID PRN 12/12/22 12/12/22 History aerosol inhaler Shortness Of Breath Or Wheezing apixaban 5 mg tablet (Eliquis) 5 mg PO BID 12/12/22 12/12/22 History duloxetine 30 mg capsule,delayed 30 mg PO DAILY 12/12/22 12/12/22 History release fluticasone furoate 100 1 inh inhalation DAILY 12/12/22 12/12/22 History mcg-vilanterol 25 mcg/dose inhalation powder (Breo Ellipta) guaifenesin 100 mg/5 mL oral liquid 200 mg PO Q4H PRN Cough 12/12/22 12/12/22 History lorazepam 0.5 mg tablet 0.5 mg PO TID PRN Anxiety 12/12/22 12/12/22 History melatonin 10 mg capsule 10 mg PO HS 12/12/22 12/12/22 History oxycodone-acetaminophen 5 mg-325 1 tab PO Q6H PRN moderate pain 4-6 12/12/22 12/12/22 History mg tablet scale prednisone 10 mg tablets in a dose 10 mg PO DIRECTED 12/12/22 12/12/22 History pack Patient History Medical History (Updated 12/13/22 @ 14:39 by Zarina Arthur DNP) Advanced care planning/counseling discussion Anxiety Cancer related pain COPD, severe Degenerative disc disease Dyspnea and respiratory abnormalities FHx: diabetes mellitus Lung cancer Palliative care by specialist Pulmonary embolism Social History Smoking Status: Former smoker Smoking End Date: Sep 2022; Second Hand Exposure: Yes; Tobacco Cessation Education Requested by Patient: No Hx Alcohol Use: Yes Alcohol type: wine Hx Substance Use: No Preferred Language: Chilean Anodiser Required: No Beliefs That Will Affect Care: None Current Living Situation: Spouse Other Information That Helps Us Care for You: No Feels Safe at Home: Yes Safety Concerns: Feels Safe At This Time Assistive Devices: Oxygen - Continuous Review of Systems Review of Systems: All systems reviewed & are unremarkable except as noted in Subjective Physical Exam Constitutional: + acute distress, + cachectic, + frail appearing and + disheveled Eyes: PERRL and EOM intact bilaterally ENMT: external ear and nose normal, oropharynx normal Mouth: + poor dentition Neck: trachea midline, no thyromegaly Respiratory: broadly diminished lung sounds on right, coarse on left, signif effort, +conversational dyspnea with use of accessory muscles, faint wheeze L>R; hyperemic chest, no obvious mass or lesions, diffusely tender to anterior and posterior palpation Cardiovascular: tachy Gastrointestinal (Abdomen): scaphoid. BS diminished Musculoskeletal: tripo positioning, seated cross legged in bed, at times will bend forward at waist and clutch head in her hands. Gait was not assessed Skin: pale, cool, some venous insuff changes BLE, no edema; nails are clubbing/spoon shaped + onychomycotic nails Neurologic: AAOx3, anxious and tearful at times Results & Data Vital Signs (Past 12 Hours) Vital Signs Temp Pulse Pulse Resp BP BP Pulse Ox 12/13/22 08:07 36.8 C 108 H 19 92/59 L 90 12/13/22 08:09 36.7 C 112 H 18 107/74 96 12/13/22 05:02 36.5 C 114 H 25 H 106/67 92 12/13/22 00:00 114 H O2 Del Method O2 Flow Rate 12/13/22 08:07 Oxymask 13 12/13/22 08:09 Oxymask 13 12/13/22 05:02 Oxymask 13 12/13/22 00:00 Laboratory Results data reviewed Diagnostic Findings data reviewed see HPI Chest CT 12/12/22 with +severe emphysema, +large right pleural effusion PG Care Time/CCT Total # of Minutes Spent Total Time Spent: 130 Total Time Spent with Patient: Total time spent is greater than 50% in coordination of care (as documented) at patient's floor/unit and/or counseling patient: I spent 130 minutes overall addressing this very complex case: 20 in medical data review/discussion with referring provider(s) and/or preparation for the visit 30 in direct interaction with the patient 60 Advance Care Planning/Goals of Care discussions as detailed above in note (must be >16min) 10 in subsequent review and synthesis of assessment and plan 10in communicating with other providers regarding the patient's case: [] Prolonged Care Time Prolonged Care Time: Yes Advanced Care Planning 35271 Advanced Care Planning 30 Min 65262 Advanced Care Planning Additional 30 [place] [address] IN/OBS CONSULT LVL 5,80M Patient Type New Medical Decision Making High Complexity Diagnoses Palliative care by specialist Z51.5 Advanced care planning/counseling discussion Z71.89 Cancer related pain G89.3 Dyspnea and respiratory abnormalities R06.00; R06.89 Non-small cell lung cancer C34.90 Anxiety F41.9 Pleural effusion J90 Respiratory failure with hypoxia J96.91 COPD, severe J44.9 Additional Codes Prolonged Care Time - Prolonged Care Time: Yes ([id number]) Advanced Care Planning - 61942 Advanced Care Planning 30 Min: 31531 Advanced Care Planning 30 Min ([id number]) Advanced Care Planning - 18194 Advanced Care Planning Additional 30 Min: 32561 Advanced Care Planning Additional 30 Min ([id number])
--- NOTE | 2022-12-13 10:45 | Electrocardiogram Report ---
Test Reason : Blood Pressure : / mmHG Vent. Rate : 122 BPM Atrial Rate : 122 BPM P-R Int : 122 ms QRS Dur : 076 ms QT Int : 348 ms P-R-T Axes : 093 112 067 degrees QTc Int : 495 ms Poor data quality, interpretation may be adversely affected Suspect arm lead reversal, interpretation assumes no reversal Age and gender specific ECG analysis Sinus tachycardia Right axis deviation Low voltage QRS Incomplete right bundle branch block Abnormal ECG No previous ECGs available Confirmed by Biju Phillips ([id number]) on 12/13/2022 10:45:09 AM Referred By: REFERRED SELF Confirmed By:Ramsey Phillips
[2022-12-13 12:14] LABS: Partial Thromboplastin Ratio 1.1; Partial Thromboplastin Time 30.5 Seconds (21.0-31.0)
[2022-12-13] MEDS: MoRPHine SULFATE IR 15 MG TAB (IMMEDIATE RELEASE) PO SCH ×2 (12:44→18:34)
--- NOTE | 2022-12-13 13:14 | Pharmacy Report ---
Pharmacy PK ABX Note - Date of Service December 13, 2022 - Assessment and Plan Assessment 52 year old F receiving empiric vancomycin and Zosyn for treatment of possible pulmonary infection. Patient presented yesterday evening (12/12) with chief complaint of shortness of breath along with productive cough and blood-tinged sputum. Patient was recently diagnosed with non-small cell lung cancer in addition to recent pulmonary embolism. Chest x-ray revealed complete opacification of the right hemithorax, which may be secondary to large pleural effusion. Leukocytosis noted on presentation (WBC ~19 K), as well as elevated lactic acid (5.1 mmol/L) and procalcitonin (69 ng/mL). Blood cultures x 2 + urine culture pending. MRSA nasal swab negative. Discussed with hospitalist - will continue vancomycin for now and follow blood cultures. Day # 1 of antimicrobial therapy. Plan Vancomycin * Loading dose: 1250 mg IV x 1 * Maintenance dose: 1000 mg IV every 12 hours * Regimen is predicted to achieve target AUC/XI of 400-600 mg/L.hr * Will order vancomycin level if therapy continued beyond 48 hours Zosyn * 4.5 g IV q8h - appropriate based on indication and renal function Pharmacy will continue to follow and will adjust dose/frequency as necessary. Cliff ellis. Pharmacy has transitioned to AUC monitoring for vancomycin. AUC/XI is the preferred PK/PD target and is associated with decreased risk of nephrotoxicity compared to traditional trough targets.
--- NOTE | 2022-12-13 14:43 | XRay Report ---
XR chest 1V not portable CLINICAL HISTORY: s/p rt thora TECHNIQUE: Single frontal radiograph of the chest was obtained. Comparison: Comparison is made to chest radiograph 12/12/2022 FINDINGS: No lines and tubes are seen. The cardiomediastinal silhouette is normal. The degree of leftward midli ne shift appears improved. Total opacification of the right hemithorax is again seen. No pneumothorax is seen. IMPRESSION: Interval improvement in leftward midline shift. Nevertheless the right hemithorax is completely opaci fied, likely from large pleural effusion with underlying atelectasis. No pneumothorax is seen. ACT 112: Negative or not required by law. Electronically signed by: Sathish Hampton M.D. 12/13/2022 2:41 PM
--- NOTE | 2022-12-13 15:13 | Ultrasound Report ---
Ultrasound-guided right thoracentesis INDICATION: Large right pleural effusion PROCEDURE: Procedure and risks were explained. Informed consent was obtained. A final timeout was com pleted. The right lateral thorax was prepped and draped in sterile fashion. 1% buffered lidocaine was utilized for skin anesthesia. Utilizing ultrasound guidance, a 5 [place] safety centesis catheter was advanced into the right pleura l effusion. Ultrasound images were obtained. 1.5 L of sanguinous fluid was removed at the time of the procedure. 1 L of pleural fluid was sent to lab for analysis. A large pleural effusion remains. The patient tolerated the procedure well. A chest x-ray will be obtained post procedure. IMPRESSION: Right thoracentesis as above. Performed, dictated, and signed by Jose Tyson PA-C; to be co-signed by Dr. Maikel Peñaloza. Electronically signed by: Maikel Peñaloza M.D. 12/13/2022 3:43 PM
[2022-12-13 15:29] LABS: Amylase Pleural Fluid 27 U/L
[2022-12-13 15:35] LABS: Glucose Pleural Fluid 67 mg/dl; LDH Pleural Fluid 937 U/L; Total Protein Pleural Fluid < 3.0 gm/dl
--- NOTE | 2022-12-13 16:22 | Pulmonary Consultation ---
Date of Consultation December 13, 2022 Assessment & Plan (1) Malignant pleural effusion: She is status post thoracentesis today with 1.5 L of fluid removed. She had minimal improvement status post thoracentesis in terms of the chest x-ray findings and symptoms. She has extensive tumor burden in the right lung. It is very unlikely that the right lung will reexpand at this time. She has evidence of very advanced malignancy. We will consider Pleurx catheter placement tomorrow depending on how she looks and feels. Awaiting oncology input. (2) Non-small cell lung cancer: History of Present Illness Reason for Consultation: Stage IV lung cancer with recurrent malignant effusion Attending Physician: Naveen Olmstead MD History of Present Illness 52-year-old female with extensive tobacco abuse history who was recently diagnosed at [facility] with stage IV non-small cell lung cancer status post thoracentesis. She was also found to have a pulmonary embolism. She was admitted this time due to severe shortness of breath and was found to be hypoxic. She is requiring anywhere from 10 to 15 L of oxygen. She underwent thoracentesis by radiology with removal of 1.5 L of serosanguineous fluid. She notes minimal improvement status post thoracentesis. Chest x-ray reveals persistent whiteout of the right lung. Chest CT revealed necrotic findings of the right lung and heterogeneous consolidation likely due to to advanced tumor burden. Patient notes that she has not been seen by oncology as of yet and has not had a full staging work-up. Allergies Allergy/AdvReac Type Severity Reaction Status Date / Time No Known Allergies Allergy Unverified 12/12/22 17:04 Home Medications Medication Instructions Recorded Confirmed Type albuterol sulfate 90 mcg/actuation 2 puff inhalation QID PRN 12/12/22 12/12/22 History aerosol inhaler Shortness Of Breath Or Wheezing apixaban 5 mg tablet (Eliquis) 5 mg PO BID 12/12/22 12/12/22 History duloxetine 30 mg capsule,delayed 30 mg PO DAILY 12/12/22 12/12/22 History release fluticasone furoate 100 1 inh inhalation DAILY 12/12/22 12/12/22 History mcg-vilanterol 25 mcg/dose inhalation powder (Breo Ellipta) guaifenesin 100 mg/5 mL oral liquid 200 mg PO Q4H PRN Cough 12/12/22 12/12/22 History lorazepam 0.5 mg tablet 0.5 mg PO TID PRN Anxiety 12/12/22 12/12/22 History melatonin 10 mg capsule 10 mg PO HS 12/12/22 12/12/22 History oxycodone-acetaminophen 5 mg-325 1 tab PO Q6H PRN moderate pain 4-6 12/12/22 12/12/22 History mg tablet scale prednisone 10 mg tablets in a dose 10 mg PO DIRECTED 12/12/22 12/12/22 History pack Patient History Medical History (Updated 12/13/22 @ 16:18 by Nick Jones MD) Advanced care planning/counseling discussion Anxiety Cancer related pain COPD, severe Degenerative disc disease Dyspnea and respiratory abnormalities FHx: diabetes mellitus Lung cancer Malignant pleural effusion Palliative care by specialist Pulmonary embolism Social History Smoking Status: Former smoker Smoking End Date: Sep 2022; Second Hand Exposure: Yes; Tobacco Cessation Education Requested by Patient: No Hx Alcohol Use: Yes Alcohol type: wine Hx Substance Use: No Preferred Language: Japanese Communication Ability: Effective Pit Furnace Melter Required: No Beliefs That Will Affect Care: None Current Living Situation: Spouse Other Information That Helps Us Care for You: No Feels Safe at Home: Yes Safety Concerns: Feels Safe At This Time Assistive Devices: Oxygen - Continuous and Walker Review of Systems Review of Systems: All systems reviewed & are unremarkable except as noted in HPI & below Physical Exam Physical Exam: Constitutional: Frail and ill-appearing female in mild distress. Eyes: Pupils are equal round and reactive to light. Conjunctivae are normal. Anicteric sclera. Ears nose, mouth and throat: Mallampati class 1. Normal posterior oropharynx. Uvula is midline. Neck: Trachea is midline. Visual inspection is normal. Respiratory: Minimal air entry on the right. Clear on the left. Cardiovascular: Regular rate and rhythm. No murmurs. No edema. Gastrointestinal: Normal bowel sounds, soft, nontender and nondistended. No hepatosplenomegaly noted. Musculoskeletal: No cyanosis. Patient is able to move all extremities. Strength is 5 out of 5 in the upper and lower extremities. Skin: No rashes, warm dry and intact. Neurologic: No obvious focal neurological deficits seen. Psychiatric: Alert and oriented x3 with a euthymic affect. Results & Data Results & Data Vital Signs (Past 12 Hours) Vital Signs Temp Pulse Pulse Resp BP BP Pulse Ox 12/13/22 15:26 114 H 12/13/22 15:31 36.4 C L 103 H 17 88/45 L 91 12/13/22 14:48 104 H 104/65 12/13/22 13:51 106 H 104/69 12/13/22 12:06 36.3 C L 112 H 17 88/60 L 94 12/13/22 06:00 113 H 12/13/22 08:00 12/13/22 08:07 36.8 C 108 H 19 92/59 L 90 12/13/22 08:09 36.7 C 112 H 18 107/74 96 12/13/22 05:02 36.5 C 114 H 25 H 106/67 92 O2 Del Method O2 Flow Rate 12/13/22 15:26 12/13/22 15:31 Oxymask 13 12/13/22 14:48 12/13/22 13:51 12/13/22 12:06 Oxymask 13 12/13/22 06:00 12/13/22 08:00 Oxymask 13 12/13/22 08:07 Oxymask 13 12/13/22 08:09 Oxymask 13 12/13/22 05:02 Oxymask 13 PG Care Time/CCT Total # of Minutes Spent Total Time Spent with Patient: Total time spent is greater than 50% in coordination of care (as documented) at patient's floor/unit and/or counseling patient: Coding Level of Care Code 86403 IN/OBS CONSULT LVL 4,60M Diagnoses Malignant pleural effusion J91.0 Non-small cell lung cancer C34.90
--- NOTE | 2022-12-13 16:35 | Hospitalist Progress Note ---
Date of Service December 13, 2022 Assessment & Plan (1) Acute respiratory failure with hypoxia: (2) Malignant pleural effusion: (3) Non-small cell lung cancer: Plan: (4) Pulmonary embolism: (5) COPD, severe: Plan: Patient is a 52-year-old female with past medical history of smoking, recently diagnosed stage IV non-small cell cancer (admitted in [facility] from 11/14/2022 to 12/01/2022), recent PE on Eliquis. She also had thoracentesis done on 11/16/2022 Patient presented to the ED with shortness of breath. Chest x-ray on admission personally reviewed; complete opacification of right hemithorax. CT chest without large malignant right pleural effusion, complete heterogeneous consolidation of right lung. Metastatic supraclavicular, mediastinal and hilar lymphadenopathy. Severe pulmonary emphysema, hepatic and po possible adrenal metastasis. Metastatic lung cancer Acute respiratory failure with hypoxia History of recent PE History of severe COPD. Possible sepsis secondary to pneumonia. Presented with increasing shortness of breath. Chest x-ray on admission personally reviewed; complete opacification of right hemithorax. CT chest without large malignant right pleural effusion, complete heterogeneous consolidation of right lung. Metastatic supraclavicular, mediastinal and hilar lymphadenopathy. Severe pulmonary emphysema, hepatic and po possible adrenal metastasis. On presentation; leukocytosis present, lactate elevated, hypotensive Status post right thoracentesis on December 13, 2022 with removal of 1.5 L of fluid. Repeat chest x-ray after thoracentesis personally reviewed; right hemothorax completely opacified. Slight improvement of leftward midline shift. Heparin to be resumed at 8 PM as per pulmonology. Discussed with pulmonology; patient has very advanced malignancy. Can consider Pleurx catheter tomorrow depending on how patient's look and feel. Discussed with palliative care; patient is currently in denial and is overwhelmed with diagnosis. Patient is started on opioids for your hunger and pain as per palliative care. Pleural fluid analysis : LDH highly elevated; exudative. Await cytology Oncology consulted; appreciate recommendation. Continue on Zosyn and vancomycin for now. DC Vanco if blood culture is negative. Continue antibiotic for 7 days. Chronic conditions; COPDCT chest shows advanced emphysema; on DuoNebs every 6 hours. Continue home inhalers. As per the patient, patient was recently started on prednisone 10 mg once daily at [facility]. We will start her on methylprednisone 40 mg Q8 for now. Wean down to 10 mg once daily later in the hospitalization. Anxietycontinue Cymbalta History of recent PEcontinue on heparin drip for now. Will restart Eliquis if patient is not undergoing any procedure related the hospitalization. Full code DVT prophylaxis heparin drip for PE Time spent evaluating patient, direct bedside care, chart review, placing order s, interpretation of diagnostic studies, discussion with consultants, patient, and family members, as well as other required patient management activities is 60 minutes. Please note the above document was generated using voice recognition software. It may contain grammatical, syntax or spelling errors. Any formal questions or concerns about the content, text or information contained within the body of this dictation should be directly addressed to the provider for clarification Admission and Anticipated Discharge Date Admission Date: December 12, 2022 Subjective The patient was seen multiple times during the day. She is in significant respiratory distress; has required OxyMax and high flow nasal cannula to maintain saturation. Review of Systems Review of Systems: All systems reviewed & are unremarkable except as noted in Subjective Physical Exam Physical Exam: Constitutional: Awake, alert orient x3; respiratory distress with use of accessory muscles. Neck: trachea midline, no thyromegaly normal visual inspection Respiratory: Absent breath sound in right lung field. Cardiovascular: RRR, no murmur, no edema Vessels: no JVD or carotid bruit Chest: normal inspection of chest Abdomen: normal bowel sounds, soft, nontender, no hepatosplenomegaly Musculoskeletal: no cyanosis or clubbing, extremities motor strength 5/5 Skin: no rashes, warm and dry normal turgor Neurologic: PERRL, EOMI, accommodation nl, no face palsy, no dysarthria CN's II- XI intact bilaterally and moves all extremities Psychiatric: A+Ox3, euthymic affect Lymphatic: no cervical or axillary lymphadenopathy : deferred Results & Data Results & Data Vital Signs (Past 12 Hours) Vital Signs Temp Pulse Pulse Resp BP BP Pulse Ox 12/13/22 15:26 114 H 12/13/22 15:31 36.4 C L 103 H 17 88/45 L 91 12/13/22 14:48 104 H 104/65 12/13/22 13:51 106 H 104/69 12/13/22 12:06 36.3 C L 112 H 17 88/60 L 94 12/13/22 06:00 113 H 12/13/22 08:00 12/13/22 08:07 36.8 C 108 H 19 92/59 L 90 12/13/22 08:09 36.7 C 112 H 18 107/74 96 12/13/22 05:02 36.5 C 114 H 25 H 106/67 92 O2 Del Method O2 Flow Rate 12/13/22 15:26 12/13/22 15:31 Oxymask 13 12/13/22 14:48 12/13/22 13:51 12/13/22 12:06 Oxymask 13 12/13/22 06:00 12/13/22 08:00 Oxymask 13 12/13/22 08:07 Oxymask 13 12/13/22 08:09 Oxymask 13 12/13/22 05:02 Oxymask 13 Laboratory Results Laboratory Results WBC 19.76 K/ul (4.8-10.8) H 12/12/22 16:35 RBC 4.57 M/uL (4.20-5.40) 12/12/22 16:35 Hgb 12.0 g/dl (12.0-16.0) 12/12/22 16:35 POC Hgb 13.3 g/dl (12.0-16.0) 12/12/22 16:42 Hct 37.4 % (37.0-47.0) 12/12/22 16:35 POC Hct 39 % (37-47) 12/12/22 16:42 MCV 81.8 fL (80.0-100.0) 12/12/22 16:35 MCH 26.3 pg (25.0-34.0) 12/12/22 16:35 MCHC 32.1 g/dL (32.0-36.0) 12/12/22 16:35 RDW Std Deviation 56.4 fL (36.4-46.3) H 12/12/22 16:35 RDW Coeff of Sarahi 19.8 % (11.5-14.5) H 12/12/22 16:35 Plt Count 374 K/uL (130-400) 12/12/22 16:35 MPV 10.5 fL (9.4-12.4) 12/12/22 16:35 Immature Gran % (Auto) 0.6 % 12/12/22 16:35 Neut % (Auto) 89.7 % 12/12/22 16:35 Lymph % (Auto) 2.9 % 12/12/22 16:35 [place] % (Auto) 6.7 % 12/12/22 16:35 Eos % (Auto) 0.0 % 12/12/22 16:35 Baso % (Auto) 0.1 % 12/12/22 16:35 Neut # (Auto) 17.73 K/uL (1.40-6.50) H 12/12/22 16:35 Lymph # (Auto) 0.57 K/uL (1.2-3.4) L 12/12/22 16:35 [place] # (Auto) 1.33 K/uL (0.11-0.59) H 12/12/22 16:35 Eos # (Auto) 0.00 K/uL (0-0.50) 12/12/22 16:35 Baso # (Auto) 0.01 K/uL (0-0.2) 12/12/22 16:35 Immature Gran # (Auto) 0.12 K/uL (0.01-0.20) 12/12/22 16:35 PT 16.1 Seconds (9.0-12.0) H 12/12/22 16:35 INR 1.5 (0.9-1.1) H 12/12/22 16:35 APTT 30.5 Seconds (21.0-31.0) 12/13/22 10:51 PTT Ratio 1.1 12/13/22 10:51 ABG pH 7.45 (7.35-7.45) 12/12/22 20:21 ABG pCO2 45 mmHg (35-46) 12/12/22 20:21 ABG pO2 89 mmHg (80-95) 12/12/22 20:21 ABG HCO3 31 mmol/L (19-24) H 12/12/22 20:21 ABG O2 Saturation 97.9 % (90-95) H 12/12/22 20:21 ABG Base Excess 6.5 mEq/L (-9-1.8) H 12/12/22 20:21 Aaron Test Pos (Pos) 04/17/23 20:21 VBG pH 7.49 (7.36-7.41) H 12/12/22 16:35 VBG pCO2 42 mmHg (38-50) 12/12/22 16:35 VBG pO2 22 mmHg 12/12/22 16:35 VBG HCO3 32 mmol/L 12/12/22 16:35 VBG O2 Saturation < 60.0 % 12/12/22 16:35 VBG Base Excess 7.8 mEq/L 12/12/22 16:35 Oxygen Given 10 12/12/22 20:21 POC Sodium 131 mmol/L (135-144) L 12/12/22 16:42 Sodium 135 mmol/L (136-145) L 12/12/22 16:35 POC Potassium 4.1 mmol/L (3.3-5.0) 12/12/22 16:42 Potassium 4.2 mmol/L (3.5-5.1) 12/12/22 16:35 POC Chloride 92 mmol/L (101-112) L 12/12/22 16:42 Chloride 92 mmol/L (98-107) L 12/12/22 16:35 Carbon Dioxide 29 mmol/L (21-32) 12/12/22 16:35 POC Total CO2 28 mmol/L (24-31) 12/12/22 16:42 Anion Gap 14 (3-11) H 12/12/22 16:35 POC Anion Gap 16.0 mmol/L (16-25) 12/12/22 16:42 POC BUN 26 mg/dl (7-18) H 12/12/22 16:42 BUN 29 mg/dl (6-23) H 12/12/22 16:35 Creatinine 0.61 mg/dl (0.6-1.2) 12/12/22 16:35 POC Creatinine 0.7 mg/dl (0.6-1.3) 12/12/22 16:42 Est Cr Clr Drug Dosing 88.9 ml/min 12/12/22 16:35 Est GFR ( Amer) 120.0 ml/min 12/12/22 16:35 Est GFR (Non-Af Amer) 103.5 ml/min 12/12/22 16:35 BUN/Creatinine Ratio 47.5 (10-20) H 12/12/22 16:35 Glucose 125 mg/dl (70-99(Fasting)) H 12/12/22 16:35 POC Glucose (other) 131 mg/dl (70-99) H 12/12/22 16:42 Lactate 3.9 mmol/L (0.4-2.0) H* 12/12/22 18:41 Calcium 8.8 mg/dl (8.6-10.3) 12/12/22 16:35 POC Ioniz Calcium Jose Raul 1.03 mmol/l (1.12-1.32) L 12/12/22 16:42 Magnesium 1.9 mg/dl (1.7-2.4) 12/12/22 16:35 Total Bilirubin 0.8 mg/dl (0.2-1.0) 12/12/22 16:35 Direct Bilirubin 0.2 mg/dl (0-0.2) 12/12/22 16:35 AST 34 U/L (13-39) 12/12/22 16:35 ALT 26 U/L (7-52) 12/12/22 16:35 Alkaline Phosphatase 262 U/L (34-104) H 12/12/22 16:35 Troponin I High Sens 19.8 pg/ml (0-14) H 12/12/22 16:35 Total Protein 5.9 gm/dl (6.0-8.3) L 12/12/22 16:35 Albumin 2.9 gm/dl (3.4-5.0) L 12/12/22 16:35 Procalcitonin 69.04 ng/ml (0-0.5) H 12/12/22 16:35 Urine Color Dark Yellow 12/12/22 22:13 Urine Appearance Cloudy (Clear) A 12/12/22 22:13 Urine pH 5.5 (4.5-7.5) 12/12/22 22:13 Ur Specific [place] 1.031 (1.000-1.030) H 12/12/22 22:13 Urine Protein 1+ (Negative) H 12/12/22 22:13 Urine Glucose (UA) Negative (Negative) 12/12/22 22:13 Urine Ketones Trace (Negative) H 12/12/22 22:13 Urine Blood Negative (Negative) 12/12/22 22:13 Urine Nitrite Negative (Negative) 12/12/22 22:13 Urine Bilirubin 1+ (Negative) H 12/12/22 22:13 Urine Urobilinogen Negative (Negative) 12/12/22 22:13 Ur Leukocyte Esterase Negative (Negative) 12/12/22 22:13 Urine WBC (Auto) 5-10 /hpf (0-5) H 12/12/22 22:13 Urine RBC (Auto) 5-10 /hpf (0-4) H 12/12/22 22:13 U Hyaline Cast (Auto) 1-5 /lpf (0-5) 12/12/22 22:13 U Epithel Cells (Auto) >30 /lpf (0-5) H 12/12/22 22:13 Urine Bacteria (Auto) 2+ (Negative) H 12/12/22 22:13 Ur Renal Epithelial Cell Not Reportable 12/12/22 22:13 Granular Casts 1-5 /lpf (0) H 12/12/22 22:13 Urine Mucus Present (None Prsent) A 12/12/22 22:13 Pleural pH 7.39 (7.3-7.4) 12/13/22 Unknown Pleural Total Protein < 3.0 gm/dl 12/13/22 Unknown Pleural LDH 937 U/L 12/13/22 Unknown Pleural Glucose 67 mg/dl 12/13/22 Unknown Pleural Amylase 27 U/L 12/13/22 Unknown Nasal Screen MRSA (PCR) Negative (Negative) 12/13/22 Unknown SARS-CoV-2 (PCR) NEGATIVE (Negative) 12/12/22 16:42 Influenza Type A (PCR) Negative (Neg) 12/12/22 16:42 Influenza Type B (PCR) Negative (Neg) 12/12/22 16:42 RSV (RT-PCR) Negative (Neg) 12/12/22 16:42 Blood Type O Positive 12/12/22 16:35 Antibody Screen NEGATIVE 12/12/22 16:[address] 12/12/22 17:54 CT chest diagnostic wo con CT DOSE: 285.17 mGy.cm CLINICAL HISTORY: 52 years-old Female with SOB. Acute shortness of breath TECHNIQUE: Multiaxial CT images of the chest were performed without contrast. A dose lowering technique was utilized adhering to the principles of ALARA. COMPARISON: Chest radiograph of same day FINDINGS: Limited exam without the use of IV contrast. Multinodular thyroid. Pathologically enlarged supraclavicular, mediastinal and bilateral hilar lymphadenopathy includes precarinal lymph nodes measuring up to 3.7 x 1.7 cm. Small pericardial effusion. No thoracic aortic aneurysm. Large right pleural effusion with complete heterogeneous consolidation of the right lung. There is opacification of the right upper, middle and lower lobe bronchi with secretions noted within the right mainstem bronchus and bronchus intermedius. Mild pleural thickening of the right hemithorax. Severe pulmonary emphysema. No suspicious lesions identified within the left lung. There is a least 1 heterogeneous mass in the lateral left hepatic lobe measuring up to 3.5 cm. Asymmetric right perinephric stranding. Heterogeneity of the adrenal glands with pathologic upper abdominal lymphadenopathy. There is asymmetric skin thickening of the right breast with heterogeneity of the parenchyma. No acute fracture identified. No destructive bone lesion. IMPRESSION: 1. Largely likely malignant right pleural effusion. There is complete heterogeneous consolidation of the right lung, compatible with the patient's reported diagnosis of primary bronchogenic malignancy. 2. Opacification of the right upper, middle and lower lobar bronchi. 3. Metastatic supraclavicular, mediastinal, hilar, internal mammary and upper abdominal lymphadenopathy. 4. Hepatic and possible adrenal metastasis. 5. Severe pulmonary emphysema. 6. Asymmetric skin thickening of the right breast. Correlate with clinical exam findings. ACT 112: Negative or not required by law. Electronically signed by: Maikel Peñaloza M.D. 12/12/2022 7:06 PM Thoracentesis/Paracentesis 12/13/22 09:50 Ultrasound-guided right thoracentesis INDICATION: Large right pleural effusion PROCEDURE: Procedure and risks were explained. Informed consent was obtained. A final timeout was completed. The right lateral thorax was prepped and draped in sterile fashion. 1% buffered lidocaine was utilized for skin anesthesia. Utilizing ultrasound guidance, a 5 [place] safety centesis catheter was advanced into the right pleural effusion. Ultrasound images were obtained. 1.5 L of sanguinous fluid was removed at the time of the procedure. 1 L of pleural fluid was sent to lab for analysis. A large pleural effusion remains. The patient tolerated the procedure well. A chest x-ray will be obtained post procedure. IMPRESSION: Right thoracentesis as above. Performed, dictated, and signed by Jose Tyson PA-C; to be co-signed by Dr. Maikel Peñaloza. Electronically signed by: Maikel Peñaloza M.D. 12/13/2022 3:43 PM Chest X-Ray 12/13/22 14:28 XR chest 1V not portable CLINICAL HISTORY: s/p rt thora TECHNIQUE: Single frontal radiograph of the chest was obtained. Comparison: Comparison is made to chest radiograph 12/12/2022 FINDINGS: No lines and tubes are seen. The cardiomediastinal silhouette is normal. The degree of leftward midline shift appears improved. Total opacification of the right hemithorax is again seen. No pneumothorax is seen. IMPRESSION: Interval improvement in leftward midline shift. Nevertheless the right hemithorax is completely opacified, likely from large pleural effusion with underlying atelectasis. No pneumothorax is seen. ACT 112: Negative or not required by law. Electronically signed by: Sathish Hampton M.D. 12/13/2022 2:41 PM
[2022-12-13 17:23] LABS: Basophils # (auto) 0.03 K/uL (0-0.2); Basophils % (auto) 0.2 %; Eosinophils # (auto) 0.07 K/uL (0-0.50); Eosinophils % (auto) 0.4 %; Hematocrit (blood only) 28.6 % (37.0-47.0); Hemoglobin 9.3 g/dl (12.0-16.0); Immature Granulocytes # (auto) 0.08 K/uL (0.01-0.20); Immature Granulocytes % (auto) 0.5 %; Lymphocytes # (auto) 0.78 K/uL (1.2-3.4); Lymphocytes % (auto) 4.8 %; Mean Corpuscular Hemoglobin 26.6 pg (25.0-34.0); Mean Corpuscular Hgb Conc 32.5 g/dL (32.0-36.0); Mean Corpuscular Volume 81.7 fL (80.0-100.0); Mean Platelet Volume 10.2 fL (9.4-12.4); Monocytes # (auto) 1.36 K/uL (0.11-0.59); Monocytes % (auto) 8.3 %; Neutrophils # (auto) 14.06 K/uL (1.40-6.50); Neutrophils % (auto) 85.8 %; Platelet Count 266 K/uL (130-400); RDW Coefficient of Variation 19.2 % (11.5-14.5); RDW Standard Deviation 55.7 fL (36.4-46.3); White Blood Count 16.38 K/ul (4.8-10.8)
[2022-12-13] MEDS: LACTATED RINGER'S 1,000 ML IV SCH (18:06)
[2022-12-13] MEDS: ALBUT/IPRATROP 3MG/0.5MG NEB 3 ML VIAL NEB SCH (19:34)
[2022-12-13] MEDS: methylPREDNISolone 40 MG in SYRINGE 0 ML IV SCH (19:47)
[2022-12-13 20:27] LABS: Partial Thromboplastin Ratio 1.1; Partial Thromboplastin Time 28.9 Seconds (21.0-31.0)
--- NOTE | 2022-12-13 22:56 | Consultation ---
Date of Consultation December 13, 2022 Assessment & Plan (1) Cancer related pain: See palliative care notation, in the interval since their intervention pain seems to have stabilized somewhat. (2) Pulmonary embolism: Pulmonary embolisms in a Trousseau's like setting given her widely metastatic malignancy. Exam does not suggest peripheral DVT as the origin of her clot which may well be related to her abdominal metastases and local clot formation there. Under those circumstances, not clear whether an IVC filter would be a contingent option should she develop major bleeding on anticoagulation. (3) Non-small cell lung cancer: Large necrotic lung mass with extensive and recurrent sanguinous malignant effusion, widespread pathologic adenopathy including in the supraclavicular spaces and at least hepatic and possibly adrenal metastases. PET scan will not be veryinformative given what looks like widespread disease on regular CT imaging but MRI of the brain will be important to exclude occult metastases there in final treatment planning. Provisional staging cT3/4 cN3 cM1c / IVB Labeled as a non-small cell lung cancer but without specification as to adenocarcinoma versus other subtype. She does have poor performance status and would be a suboptimal candidate for traditional combination cytotoxic therapy but if she has either a high PDL1 score or targetable mutations, it would not be completely unreasonable to entertain ICI or targeted therapy which might have a more acceptable risk benefit ratio with regards to toxicities. I have explicitly indicated that she does not have curable disease and I discussed that treatment especially cytotoxic therapy might have significant and even life- threatening dangers associated with it. We discussed that the degree and durability of her response especially starting with a poor performance status is very unpredictable. That being said, she is interested in proceeding with better definition of her disease and prognosis and at least at a discussion of treatment options. We will see if we can obtain more specifics on her pathologic diagnosis at [facility] and especially whether or not NGS studies have been initiated and results available particularly with respect to PDL1, EGFR/ALK/other targetable mutations. Combining that with the MRI of her brain we can then present her with more specific considerations of where we might go from here. Any consideration of systemic therapy, especially any that include cytotoxic treatment, would rely on some improvement in performance status. Pulmonary medicine will be assessing for possible Pleurx catheter, palliative care is optimizing her pain management, may be worthwhile to get nutrition services involved in optimizing her nutritional intake (4) Anemia: Drop in hemoglobin may reflect hydration but she may also be losing blood into her malignant pleural effusion. We will need to follow hemoglobin going forward and I have requested that an anemia work-up be included in tomorrow morning's labs Plan 1. Immediate management will focus on optimizing pulmonary status and pain management. As we see whether this allows some improvement in performance status that will set the stage for prognosis and treatment option discussions 2. Anemia work-up is pending 3. MRI of the brain without and with contrast will be an important part of her initial staging, PET scan is not likely to tell us much more given that there is already radiologic evidence of hepatic and possible adrenal metastasis 4. We will try to get pathology and NGS results from [facility]. If that is a suboptimal specimen we may want to consider image-guided liver biopsy 5. Based on all the above we can have a more specific prognostic discussion and combining that with her pathology/NGS studies discussion as to whether there are any systemic options to consider. She does not have any curative options and the role for systemic therapy beyond palliative care will pivotally depend on how well we can stabilize her performance status, the availability of PDL1 or mutation identified alternatives to cytotoxic therapy and her overall parameters of care. We have explicitly discussed that treatment may actually result in paradoxic life shortening given her circumstances especially if it incorporates any cytotoxic agents. 6. Consider some nutritional counseling History of Present Illness Reason for Consultation: Newly diagnosed non-small cell lung cancer with concomitant pulmonary emboli Attending Physician: Naveen Olmstead MD History of Present Illness Against the 12-68-glhz-year smoking history and 31 pounds weight loss patient had apparently presented to [facility] 11/14/2022 with a "white out" of the right hemithorax ultimately found to have malignant pleural effusion and pulmonary emboli. The latter was attributed to non-small cell lung cancer, specific subtype not yet delineated. She was discharged for follow-up with PET scan and MRI of the brain but with relapsing issues of dyspnea and severe fatigue admitted here. On high flow oxygen and repeat thoracentesis draining 1500 mL of "sanguinous" fluid she has seen some modest improvement in her dyspnea. No unusual family history other than her father also apparently had lung cancer and was a smoker Allergies Allergy/AdvReac Type Severity Reaction Status Date / Time No Known Allergies Allergy Unverified 12/12/22 17:04 Home Medications Medication Instructions Recorded Confirmed Type albuterol sulfate 90 mcg/actuation 2 puff inhalation QID PRN 12/12/22 12/12/22 History aerosol inhaler Shortness Of Breath Or Wheezing apixaban 5 mg tablet (Eliquis) 5 mg PO BID 12/12/22 12/12/22 History duloxetine 30 mg capsule,delayed 30 mg PO DAILY 12/12/22 12/12/22 History release fluticasone furoate 100 1 inh inhalation DAILY 12/12/22 12/12/22 History mcg-vilanterol 25 mcg/dose inhalation powder (Breo Ellipta) guaifenesin 100 mg/5 mL oral liquid 200 mg PO Q4H PRN Cough 12/12/22 12/12/22 History lorazepam 0.5 mg tablet 0.5 mg PO TID PRN Anxiety 12/12/22 12/12/22 History melatonin 10 mg capsule 10 mg PO HS 12/12/22 12/12/22 History oxycodone-acetaminophen 5 mg-325 1 tab PO Q6H PRN moderate pain 4-6 12/12/22 12/12/22 History mg tablet scale prednisone 10 mg tablets in a dose 10 mg PO DIRECTED 12/12/22 12/12/22 History pack Patient History Medical History (Updated 12/13/22 @ 23:03 by Reymundo Lazar MD) Advanced care planning/counseling discussion Anxiety Cancer related pain COPD, severe Degenerative disc disease Dyspnea and respiratory abnormalities FHx: diabetes mellitus Lung cancer Malignant pleural effusion Palliative care by specialist Pulmonary embolism Social History Smoking Status: Former smoker Smoking End Date: Sep 2022; Second Hand Exposure: Yes; Tobacco Cessation Education Requested by Patient: No Hx Alcohol Use: Yes Alcohol type: wine Hx Substance Use: No Preferred Language: Cymraes Communication Ability: Effective Auto Clutch Specialist Required: No Beliefs That Will Affect Care: None Current Living Situation: Spouse Other Information That Helps Us Care for You: No Feels Safe at Home: Yes Safety Concerns: Feels Safe At This Time Assistive Devices: Oxygen - Continuous and Walker Physical Exam Physical Exam: Patient is cachectic but alert, mildly tachypneic but does not seem to be markedly air hungry. Vital signs are stable with pulse ox 94% on high flow 25 L/min ECOG 3 Pain 5/10 Markedly decreased breath sounds currently on the right zone all the way up, left lung seems relatively clear except for some scattered rhonchi Cardiac rhythm is regular The abdomen is benign without obvious organomegaly She has some exaggerated kyphosis but no focal bony tenderness or mass No pathologic adenopathy Results & Data Vital Signs (Past 12 Hours) Vital Signs Temp Pulse Pulse Resp BP BP Pulse Ox 12/13/22 22:45 98 H 12/13/22 19:35 80 18 91 12/13/22 19:37 83 18 94 12/13/22 19:22 36.7 C 95 H 18 108/73 93 12/13/22 16:45 97 H 22 92 12/13/22 15:26 114 H 12/13/22 15:31 36.4 C L 103 H 17 88/45 L 91 12/13/22 14:48 104 H 104/65 12/13/22 13:51 106 H 104/69 12/13/22 12:06 36.3 C L 112 H 17 88/60 L 94 O2 Del Method O2 Flow Rate FiO2 12/13/22 22:45 12/13/22 19:35 Oxymask 15 12/13/22 19:37 High Flow Nasal Cannula 25 80 12/13/22 19:22 High Flow Nasal Cannula 25 12/13/22 16:45 High Flow Nasal Cannula 25 70 12/13/22 15:26 12/13/22 15:31 Oxymask 13 12/13/22 14:48 12/13/22 13:51 12/13/22 12:06 Oxymask 13 Laboratory Results Laboratory Results - last 24 hr 12/13/22 12/13/22 12/13/22 03:15 10:51 16:58 WBC 16.38 H RBC 3.50 L Hgb 9.3 L Hct 28.6 L MCV 81.7 MCH 26.6 MCHC 32.5 RDW Std Deviation 55.7 H RDW Coeff of Sarahi 19.2 H Plt Count 266 MPV 10.2 Immature Gran % (Auto) 0.5 Neut % (Auto) 85.8 Lymph % (Auto) 4.8 [place] % (Auto) 8.3 Eos % (Auto) 0.4 Baso % (Auto) 0.2 Neut # (Auto) 14.06 H Lymph # (Auto) 0.78 L [place] # (Auto) 1.36 H Eos # (Auto) 0.07 Baso # (Auto) 0.03 Immature Gran # (Auto) 0.08 APTT 31.0 30.5 PTT Ratio 1.1 1.1 Pleural pH Pleural Total Protein Pleural LDH Pleural Glucose Pleural Amylase Pleural Cholesterol Nasal Screen MRSA (PCR) 12/13/22 12/13/22 12/13/22 19:40 Unknown Unknown WBC RBC Hgb Hct MCV MCH MCHC RDW Std Deviation RDW Coeff of Sarahi Plt Count MPV Immature Gran % (Auto) Neut % (Auto) Lymph % (Auto) [place] % (Auto) Eos % (Auto) Baso % (Auto) Neut # (Auto) Lymph # (Auto) [place] # (Auto) Eos # (Auto) Baso # (Auto) Immature Gran # (Auto) APTT 28.9 PTT Ratio 1.1 Pleural pH 7.39 Pleural Total Protein Pleural LDH Pleural Glucose Pleural Amylase Pleural Cholesterol Nasal Screen MRSA (PCR) Negative 12/13/22 12/13/22 Unknown Unknown WBC RBC Hgb Hct MCV MCH MCHC RDW Std Deviation RDW Coeff of Sarahi Plt Count MPV Immature Gran % (Auto) Neut % (Auto) Lymph % (Auto) [place] % (Auto) Eos % (Auto) Baso % (Auto) Neut # (Auto) Lymph # (Auto) [place] # (Auto) Eos # (Auto) Baso # (Auto) Immature Gran # (Auto) APTT PTT Ratio Pleural pH Pleural Total Protein < 3.0 Pleural LDH 937 Pleural Glucose 67 Pleural Amylase 27 Pleural Cholesterol Pending Nasal Screen MRSA (PCR) Diagnostic Findings Chest X-Ray 12/12/22 16:20 XR chest 1V portable HISTORY: 52 years-old Female Sepsis acute sepsis COMPARISON: MR chest 04/16/2012 TECHNIQUE: AP view of the chest FINDINGS: Cardiac silhouette is enlarged. There is complete opacification of the right hemithorax. Mild nonspecific interstitial coarsening of the left lung may be on a chronic basis. No left-sided pneumothorax or left-sided lobar airspace consolidation. Bones appear grossly intact. IMPRESSION: Complete opacification of the right hemithorax may be secondary to a large pleural effusion. Correlate with prior imaging. ACT 112: Negative or not required by law. The above report was generated using voice recognition software. It may contain grammatical, syntax or spelling errors. Electronically signed by: Maikel Peñaloza M.D. 12/12/2022 5:[address] 12/12/22 17:54 CT chest diagnostic wo con CT DOSE: 285.17 mGy.cm CLINICAL HISTORY: 52 years-old Female with SOB. Acute shortness of breath TECHNIQUE: Multiaxial CT images of the chest were performed without contrast. A dose lowering technique was utilized adhering to the principles of ALARA. COMPARISON: Chest radiograph of same day FINDINGS: Limited exam without the use of IV contrast. Multinodular thyroid. Pathologically enlarged supraclavicular, mediastinal and bilateral hilar lymphadenopathy includes precarinal lymph nodes measuring up to 3.7 x 1.7 cm. Small pericardial effusion. No thoracic aortic aneurysm. Large right pleural effusion with complete heterogeneous consolidation of the right lung. There is opacification of the right upper, middle and lower lobe bronchi with secretions noted within the right mainstem bronchus and bronchus intermedius. Mild pleural thickening of the right hemithorax. Severe pulmonary emphysema. No suspicious lesions identified within the left lung. There is a least 1 heterogeneous mass in the lateral left hepatic lobe measuring up to 3.5 cm. Asymmetric right perinephric stranding. Heterogeneity of the adrenal glands with pathologic upper abdominal lymphadenopathy. There is asymmetric skin thickening of the right breast with heterogeneity of the parenchyma. No acute fracture identified. No destructive bone lesion. IMPRESSION: 1. Largely likely malignant right pleural effusion. There is complete heterogene ous consolidation of the right lung, compatible with the patient's reported diagnosis of primary bronchogenic malignancy. 2. Opacification of the right upper, middle and lower lobar bronchi. 3. Metastatic supraclavicular, mediastinal, hilar, internal mammary and upper abdominal lymphadenopathy. 4. Hepatic and possible adrenal metastasis. 5. Severe pulmonary emphysema. 6. Asymmetric skin thickening of the right breast. Correlate with clinical exam findings. ACT 112: Negative or not required by law. Electronically signed by: Maikel Peñaloza M.D. 12/12/2022 7:06 PM Thoracentesis/Paracentesis US 12/13/22 09:50 Ultrasound-guided right thoracentesis INDICATION: Large right pleural effusion PROCEDURE: Procedure and risks were explained. Informed consent was obtained. A final timeout was completed. The right lateral thorax was prepped and draped in sterile fashion. 1% buffered lidocaine was utilized for skin anesthesia. Utilizing ultrasound guidance, a 5 [place] safety centesis catheter was advanced into the right pleural effusion. Ultrasound images were obtained. 1.5 L of sanguinous fluid was removed at the time of the procedure. 1 L of pleural fluid was sent to lab for analysis. A large pleural effusion remains. The patient tolerated the procedure well. A chest x-ray will be obtained post procedure. IMPRESSION: Right thoracentesis as above. Performed, dictated, and signed by Jose Tyson PA-C; to be co-signed by Dr. Maikel Peñaloza. Electronically signed by: Maikel Peñaloza M.D. 12/13/2022 3:43 PM Chest X-Ray 12/13/22 14:28 XR chest 1V not portable CLINICAL HISTORY: s/p rt thora TECHNIQUE: Single frontal radiograph of the chest was obtained. Comparison: Comparison is made to chest radiograph 12/12/2022 FINDINGS: No lines and tubes are seen. The cardiomediastinal silhouette is normal. The degree of leftward midline shift appears improved. Total opacification of the right hemithorax is again seen. No pneumothorax is seen. IMPRESSION: Interval improvement in leftward midline shift. Nevertheless the right hemithorax is completely opacified, likely from large pleural effusion with underlying atelectasis. No pneumothorax is seen. ACT 112: Negative or not required by law. Electronically signed by: Sathish Hampton M.D. 12/13/2022 2:41 PM PG Care Time/CCT Total # of Minutes Spent Total Time Spent with Patient: Total time spent is greater than 50% in coordination of care (as documented) at patient's floor/unit and/or counseling patient: [place] [address] IN/OBS CONSULT LVL 4,60M Patient Type New History Expanded Problem Focused Exam Expanded Problem Focused Medical Decision Making High Complexity Diagnoses Cancer related pain G89.3 Pulmonary embolism I26.99 Non-small cell lung cancer C34.90 Anemia D64.9
[2022-12-14] MEDS: MoRPHine SULFATE IR 15 MG TAB (IMMEDIATE RELEASE) PO SCH ×4 (00:08→18:50)
[2022-12-14] MEDS: LACTATED RINGER'S 1,000 ML IV SCH ×3 (01:04→17:17)
[2022-12-14] MEDS: methylPREDNISolone 40 MG in SYRINGE 0 ML IV SCH ×3 (01:05→18:50)
[2022-12-14 03:50] LABS: Hematocrit (blood only) 30.3 % (37.0-47.0); Hemoglobin 9.7 g/dl (12.0-16.0); Mean Corpuscular Hemoglobin 26.6 pg (25.0-34.0); Mean Platelet Volume 10.2 fL (9.4-12.4); Platelet Count 284 K/uL (130-400); RDW Coefficient of Variation 19.2 % (11.5-14.5); RDW Standard Deviation 56.2 fL (36.4-46.3); Red Blood Count 3.65 M/uL (4.20-5.40); Reticulocyte % 4.2 % (0.5-2.0); Reticulocytes # 0.15 10^6/uL (0.02-0.10); White Blood Count 18.65 K/ul (4.8-10.8)
[2022-12-14 04:02] LABS: BUN Creatinine Ratio 34.5 (10-20); Calcium 8.2 mg/dl (8.6-10.3); Creatinine Clr Calc Pharmacy 96.9 ml/min; Est GFR (Non-African American) 105.2 ml/min; Potassium 3.6 mmol/L (3.5-5.1)
[2022-12-14] MEDS: PIPERACILLIN/TAZOBACTAM 4.5 GM in DEXTROSE 5% 100 ML IV SCH ×3 (04:06→20:09)
[2022-12-14 04:20] LABS: Partial Thromboplastin Ratio 1.2
[2022-12-14 04:22] LABS: Ferritin 1004.6 ng/ml (8-388)
[2022-12-14 04:25] LABS: Basophils # (auto) 0.02 K/uL (0-0.2); Basophils % (auto) 0.1 %; Eosinophils # (auto) 0.01 K/uL (0-0.50); Eosinophils % (auto) 0.1 %; Immature Granulocytes % (auto) 0.5 %; Lymphocytes # (auto) 0.42 K/uL (1.2-3.4); Lymphocytes % (auto) 2.3 %; Monocytes # (auto) 0.39 K/uL (0.11-0.59); Monocytes % (auto) 2.1 %; Neutrophils # (auto) 17.71 K/uL (1.40-6.50); Neutrophils % (auto) 94.9 %; Polychromasia 1+
[2022-12-14] MEDS: VANCOMYCIN HCL 1,000 MG in SODIUM CHLORIDE 0.9% 250 ML IV SCH (06:13)
[2022-12-14] MEDS: ALBUT/IPRATROP 3MG/0.5MG NEB 3 ML VIAL NEB SCH ×4 (07:21→19:32)
[2022-12-14] MEDS: HEPARIN SODIUM/DEXTROSE 25,000 UNITS/500 ML BAG IV SCH ×2 (08:17→20:09)
[2022-12-14] MEDS: DULoxetine HCL 30 MG CAP PO SCH (08:18)
[2022-12-14] MEDS: FLUTICASONE/VILANTEROL 100/25MCG 14 PUFFS/INHALER INH SCH (08:18)
[2022-12-14] MEDS: MoRPHine SULFATE 2 MG/ML CARP IV PRN (12:12)
--- NOTE | 2022-12-14 12:48 | Procedure Note ---
Procedure Note Date of Service December 14, 2022 Note PREOPERATIVE DIAGNOSIS: Recurrent malignant right pleural effusion. POSTOPERATIVE DIAGNOSIS: Recurrent malignant right pleural effusion. PROCEDURE PERFORMED: Right PleurX catheter placement. ANESTHESIA: No IV sedation [Local lidocaine given (15 ml)] COMPLICATIONS: None. Written consent was obtained and placed on the chart. Timeout was done prior to the procedure. INDICATION FOR PROCEDURE: The patient is an 52-year-old female with a complex past medical history, most pertinent for metastatic lung cancer. The patient has developed a recurrent right pleural effusion. In an effort to palliate her her respiratory symptoms, the patient was referred for a PleurX catheter placement for home drainage. The patient and her family understood the risks and possible complications of the procedure and wished to proceed. OPERATIVE FINDINGS: The right chest was opacified on preoperative chest x-ray, and 1liters of serosanguineous fluid was withdrawn before clamping the drainage tube. There were no bleeding complications, and the fluid was not blood tinged. DESCRIPTION OF PROCEDURE: The patient was placed in a semirecumbent position. I evaluated the right pleura with the ultrasound and located an adequate spot insert the finder needle to inject lidocaine and aspirate pleural fluid. The right chest and upper abdomen were prepped and draped in the usual sterile fashion. Lidocaine 1% was used to infiltrate two areas; one in the right upper quadrant where the tube would exit and the other along the anterior axillary line in the seventh intercostal space. A small counterincision was made in the right upper quadrant area. Through the anterior axillary line area, the pleural space was accessed by Seldinger technique. The counterincision was made around the guidewire and then the PleurX catheter was tunneled from the right upper quadrant small incision to the one overlying the ribs. A sheath introducer was then passed over the wire and then the PleurX catheter was placed through the sheath introducer. There was good return of fluid. 1 liters of serous fluid was withdrawn slowly as the small counterincision was closed with Monocryl stitch. The catheter was capped off, and sterile dressings were applied. The patient tolerated the procedure well without any complications. Postprocedure chest x-ray is ordered and pending. Coding CPT Codes Pulmonary/Thoracic - Pulmonary and Thoracic: 34085 Insert pleural cathereter w/cuff ([id number]) [facility] [place]arges) Pulmonary/Thoracic Procedure 1: Pulmonary and Thoracic: 77422 Insert pleural cathereter w/cuff
--- NOTE | 2022-12-14 13:05 | Pulmonology Progress Note ---
Date of Service December 14, 2022 Assessment & Plan (1) Malignant pleural effusion: Plan: Status post right Pleurx placement 12/14/2022. 1 L of fluid removed. Additional liter of fluid to be removed by RN and to do bedside teaching with family. manager speech will need contacted for Pleurx catheter supplies and home health services. Sutures from pleural catheter will need to be removed in the next 10 days. Schedule follow-up pulmonary clinic. Oncology following. (2) Non-small cell lung cancer: Admission and Anticipated Discharge Date Admission Date: December 12, 2022 Subjective Patient now requiring high flow oxygen and increasingly tachypneic. Discussed pleural catheter placement the patient today and she understands risk benefits and ultimately consents. She denies any significant cough. Mild pain at the site of the thoracentesis. Review of Systems Review of Systems: All systems reviewed & are unremarkable except as noted in HPI & below Physical Exam Physical Exam: Constitutional: Frail and ill-appearing female in mild distress. Eyes: Pupils are equal round and reactive to light. Conjunctivae are normal. Anicteric sclera. Ears nose, mouth and throat: Mallampati class 1. Normal posterior oropharynx. Uvula is midline. Neck: Trachea is midline. Visual inspection is normal. Respiratory: Minimal air entry on the right. Clear on the left. Cardiovascular: Regular rate and rhythm. No murmurs. No edema. Gastrointestinal: Normal bowel sounds, soft, nontender and nondistended. No hepatosplenomegaly noted. Musculoskeletal: No cyanosis. Patient is able to move all extremities. Strength is 5 out of 5 in the upper and lower extremities. Skin: No rashes, warm dry and intact. Neurologic: No obvious focal neurological deficits seen. Psychiatric: Alert and oriented x3 with a euthymic affect. Results & Data Results & Data Vital Signs (Past 12 Hours) Vital Signs Temp Pulse Pulse Resp BP Pulse Ox O2 Del Method 12/14/22 12:18 36.4 C L 94 H 18 106/74 93 Oxymask 12/14/22 06:00 92 H 12/14/22 08:00 Other 12/14/22 10:58 103 H 20 91 High Flow Nasal Cannula 12/14/22 08:10 36.7 C 95 H 18 101/67 93 Oxymask 12/14/22 07:21 110 H 20 90 High Flow Nasal Cannula 12/14/22 02:25 96 H 18 94 High Flow Nasal Cannula 12/14/22 02:50 36.5 C 95 H 18 110/77 92 High Flow Nasal Cannula O2 Flow Rate FiO2 12/14/22 12:18 30 12/14/22 06:00 12/14/22 08:00 30 85 12/14/22 10:58 30 85 12/14/22 08:10 30 12/14/22 07:21 30 85 12/14/22 02:25 30 85 12/14/22 02:50 PG Care Time/CCT Total # of Minutes Spent Total Time Spent with Patient: Total time spent is greater than 50% in coordination of care (as documented) at patient's floor/unit and/or counseling patient: Coding Level of Care Code 61020 SUB INP/OBS CARE 2/35MIN Diagnoses Malignant pleural effusion J91.0 Non-small cell lung cancer C34.90
--- NOTE | 2022-12-14 13:18 | XRay Report ---
XR chest 1V portable HISTORY: s/p right Pleurx catheter COMPARISON: Chest 12/13/2022. FINDINGS: Interval placement of a right pleural catheter which terminates in the right lower lung zon e. Near complete opacification right hemithorax again noted with slight improved aeration within the right upper lung zone. No definite pneumothorax. Interstitial thickening noted at the left lung base. The cardiac silhouette is stable in size. IMPRESSION: 1. Right pleural catheter terminates in the right lower lung zone. No definite pneumothorax. 2. Near-complete opacification of the right hemithorax again noted with slight improved aeration with in the right upper lobe. ACT 112: Negative or not required by law. Electronically signed by: Dirk Delaney M.D. 12/14/2022 1:15 PM
[2022-12-14] MEDS ORDERED: Nursing to Pharmacy Communication SCH (14:45)
--- NOTE | 2022-12-14 16:22 | Hospitalist Progress Note ---
Date of Service December 14, 2022 Assessment & Plan (1) Acute respiratory failure with hypoxia: (2) Malignant pleural effusion: (3) Non-small cell lung cancer: Plan: (4) Pulmonary embolism: (5) COPD, severe: Plan: per Dr. Olmstead's notes with addendum: Patient is a 52-year-old female with past medical history of smoking, recently diagnosed stage IV non-small cell cancer (admitted in [facility] from 11/14/2022 to 12/01/2022), recent PE on Eliquis. She also had thoracentesis done on 11/16/2022 Patient presented to the ED with shortness of breath. Chest x-ray on admission personally reviewed; complete opacification of right hemithorax. CT chest without large malignant right pleural effusion, complete heterogeneous consolidation of right lung. Metastatic supraclavicular, mediastinal and hilar lymphadenopathy. Severe pulmonary emphysema, hepatic and po possible adrenal metastasis. Metastatic lung cancer Acute respiratory failure with hypoxia History of recent PE History of severe COPD. Possible sepsis secondary to pneumonia. Presented with increasing shortness of breath. Chest x-ray on admission personally reviewed; complete opacification of right hemithorax. CT chest without large malignant right pleural effusion, complete heterogeneous consolidation of right lung. Metastatic supraclavicular, mediastinal and hilar lymphadenopathy. Severe pulmonary emphysema, hepatic and po possible adrenal metastasis. On presentation; leukocytosis present, lactate elevated, hypotensive 12/14 Still on high flow oxygen Status post Pleurx catheter placement 12/14, with drainage of 1 L pleural fluid Repeat chest x-ray showing minimal improvement Pleural fluid culture: Pending Blood cultures: Negative so far Continue with IV Zosyn Continue with Solu-Medrol 40 mg every 8 hours Continue DuoNeb Continue with usual Breo PleurX drainage per pulmonary service Palliative service on board Status post right thoracentesis on December 13, 2022 with removal of 1.5 L of fluid. Repeat chest x-ray after thoracentesis personally reviewed; right hemothorax completely opacified. Slight improvement of leftward midline shift. Heparin to be resumed at 8 PM as per pulmonology. Discussed with pulmonology; patient has very advanced malignancy. Can consider Pleurx catheter tomorrow depending on how patient's look and feel. Discussed with palliative care; patient is currently in denial and is overwhelmed with diagnosis. Patient is started on opioids for your hunger and pain as per palliative care. Pleural fluid analysis : LDH highly elevated; exudative. Await cytology Oncology consulted; appreciate recommendation. Continue on Zosyn and vancomycin for now. DC Vanco if blood culture is negative. Continue antibiotic for 7 days. 12/14 Management per above Chronic conditions; COPDCT chest shows advanced emphysema; on DuoNebs every 6 hours. Continue home inhalers. As per the patient, patient was recently started on prednisone 10 mg once daily at [facility]. We will start her on methylprednisone 40 mg Q8 for now. Wean down to 10 mg once daily later in the hospitalization. Anxietycontinue Cymbalta History of recent PEcontinue on heparin drip for now. Will restart Eliquis if patient is not undergoing any procedure related the hospitalization. Full code DVT prophylaxis heparin drip for PE Disposition: Pending Admission and Anticipated Discharge Date Admission Date: December 12, 2022 Subjective Follow-up for acute hypoxic respiratory failure, pleural effusion, etc. Seen resting in bed, comfortable, not in distress, on high flow O2 States she feels improved after thoracentesis yesterday Pain well controlled No other new symptoms Review of Systems Review of Systems: all noted and negative except for above Physical Exam Physical Exam: General- oriented x 3, not in distress, speaks in sentences with no effort or accessory muscle use Eyes- anicteric Neck- no JVD Lungs- clear breath sounds bilaterally, no rales/wheezes Heart- normal rate, regular rhythm; no murmurs Abdomen- normal bowel sounds, nondistended, soft, nontender Extremities- no pretibial edema, no calf tenderness Neuro- alert, oriented x 3; no gross focal neurologic deficits Skin- warm & dry Results & Data Results & Data Vital Signs (Past 12 Hours) Vital Signs Temp Pulse Pulse Pulse Resp BP BP 12/14/22 14:21 64 12/14/22 16:01 36.8 C 101 H 18 101/61 12/14/22 14:22 99 H 87/51 L 12/14/22 14:08 102 H 110/70 12/14/22 14:26 87 20 12/14/22 12:32 118 H 99/43 L 12/14/22 12:48 36.7 C 98 H 100/60 12/14/22 12:18 36.4 C L 94 H 18 106/74 12/14/22 06:00 92 H 12/14/22 08:00 12/14/22 10:58 103 H 20 12/14/22 08:10 36.7 C 95 H 18 101/67 12/14/22 07:21 110 H 20 Pulse Ox O2 Del Method O2 Flow Rate FiO2 12/14/22 14:21 12/14/22 16:01 91 High Flow Nasal Cannula 30 12/14/22 14:22 93 Other 26 80 12/14/22 14:08 93 Other 26 80 12/14/22 14:26 93 High Flow Nasal Cannula 25 80 12/14/22 12:32 12/14/22 12:48 90 Other 20 80 12/14/22 12:18 93 Oxymask 30 12/14/22 06:00 12/14/22 08:00 Other 30 85 12/14/22 10:58 91 High Flow Nasal Cannula 30 85 12/14/22 08:10 93 Oxymask 30 12/14/22 07:21 90 High Flow Nasal Cannula 30 85 all noted and reviewed including below
--- NOTE | 2022-12-14 18:13 | Palliative Care Progress Note ---
Date of Service December 14, 2022 Assessment & Plan (1) Palliative care by specialist: Plan: Met with pt/family. Provided overview of Palliative Medicine, a subspecialty that provides specialized medical care for people living with a serious illness by offering a focus on quality of life. Palliative Medicine is often conflated with hospice: I advised patient/family that Palliative and hospice can be partners but we are not the same. It is important to understand the difference so that we may be informed, and not afraid. Palliative Medicine works to improve QOL through reduction of symptom burden/more control over their illness, for both the patient and family. Palliative medicine clinicians are board certified, specially-trained and another member of the patient's medical care team. We often provide an extra layer of support because our care is based on the needs of the patient, not the prognosis; as such, it's appropriate at any age/advancing stage of a serious illness and can be provided along with curative treatment. Palliative Medicine clinicians are also trained in advanced communication methodologies, to facilitate complex discussions about advanced illness planning, which are needed to help assure that the treatment choices match the patient's goals, aka delivering Goal Concordant care. Finally, we discussed that hospice is a visiting nurse service that focuses on care delivered at the very end of life for patients with terminal illness, with life expectancy less than 6 month. (2) Advanced care planning/counseling discussion: Plan: A 60 min face to face ACP meeting was held with pt, her and her oldest dtr at the bedside. Patient asked me to provide her family with an overview of current issues, oncology reccs and expectations/next steps. We reviewed the evidence supporting the initiation of Palliative Care into the management of this patient with advanced met lung cancer; palliative care, when provided alongside oncologic care, leads to improved QOL, fewer depressive symptoms, better prognosis understanding and longer median survival darin when given the overall poor prognosis and QOL issues at hand. (Nita et al. (2010). Early palliative care for patients with metastatic vex-ommdx-yiwh lung cancer. [place] J of Med 363(7), 733-742. Doi: 10.1056/[id number].) We spoke about the nature of her adv cancer + severe COPD/GOLD unstaged=no PFT on file. We reviewed current HFNC impedes ability to move forward with a rehab dc as she notes this is what she understood would be needed before she could be considered for chemo. We spoke about her goals for herself. She is feeling more in control of her life today and notes that having pain managed better has contributed greatly to lessening that feeling of everything spinning out of control. We spoke about the complexity of cancer mgt with severe COPD, frailty, malnutrition and cachexia. asked if she would make it out of the hos pital and I advised for now we are going to take things a day at a time, working on reducing her HFNC dependency with plan to transition to [place]. Daughter yoana shared many excerpts of their experience at OSH and states she believes pt was rushed to dc giving example that her HFNC was suddenly moved to [place] 15lpm and she was sent home on 15LPM but had not been ambualted on this or had additional rec cs.The and dtr reiterate story of patient being told she does not have long to live/'better get your affairs in order' and then "she was shamed for not wanting to have the MRI because she's claustrophobic and would need sedation which they said they wouldn't do." Extensive psychosocial support and reassurance provided. Assured pt and family all members of the medical and clinical teams are here to help them,. and if we are falling short in any way, please tell us so we can do better. asked about survival. Patient states she understands this is not curable cancer but oncology needs more information about her results from OSH before being able to talk about survival data. I reaffirmed this today and stated that we can all agree her situation is tenuous and this is due to her respiratory status. This led to an organic segue into code status discussion where told me when they had discussed CPR they both decided they did not want to be placed on machines. I advised that would be aligned with a code status of DNR/DNI though pt is currently Full code. I encouraged them to discuss this more as a family today. I reviewed the CPR survival data: Only about 10% of patients who have etd-ac-pddzzqga sudden cardiac arrest survive to hospital discharge, with many survivors having neurologic impairment. This rate is even lower among patients with serious coexisting conditions, ie chance of survival to hospital discharge for in-hospital CPR in older people is low to moderate (15%) and decreases with age, comorbidities, performance status and frailty: for pts > 70 yo, more than half of the patients who initially survived resuscitation in the hospital before hospital discharge. The pooled survival to discharge after in-hospital CPR was 18% for patients between 70 and 79 years old, 15% for patients between 80 and 89 years old and 11% for patients of 90 years and older. (Alberto WALTONY, Bunny LJ, Leeann F, et al. Trends in short- and long-term survival among xve-lc-vlclhige cardiac arrest patients alive at hospital arrival. Circulation 2014;130:3587-1120. AND Ayse C, Taj T, Marcel R, et al. Performance of clinical risk scores to predict mortality and neurological outcome in cardiac arrest patients. Resuscitation 2019;136:21-29.) (3) Cancer related pain: Plan: Much improved from yesterday. No changes for now. (4) Dyspnea and respiratory abnormalities: Plan: Improved relief of air hunger with intermittent morphine (5) Non-small cell lung cancer: (6) Pulmonary embolism: (7) Respiratory failure with hypoxia: (8) COPD, severe: (9) Anxiety: Plan * Pain and dyspnea rx as ordered, no changes * ACP meeting with family as noted above * Code discussion as noted above: indicates they are both no CPR preferring but would like to review with pt before making any changes. I encouraged them to think about CPR more as the question of "Where do you see yourself at the end of your life? versus one of "do you want to live?" * Regardless of the risk, pt is willing to try chemo and would like to be considered for inpatient chemo since she would be monitored more closely. * I have updated nursing, oncology and primary team. * I will continue to follow. Thank you for allowing us to participate in the ongoing care of this patient. Please don't hesitate to call or page with any additional concerns. Dr. Zarina Arthur DNP Director, Palliative Care Admission and Anticipated Discharge Date Admission Date: December 12, 2022 Subjective pt seen in follow up for cancer related severe pain and air hunger mgt she had a pleurx placed earlier today, during initial placement, 1000ml drainage was collected. at the time of my visit this afternoon, and daughter were at bedside an learning how to care for pleurx, during which time another 1000ml was drained. pt reports pain is significantly improved. she has been tolerating scheduled MS and using prn IV MS has been feeling more "chest tightness" right anterior mid chest since pleurx drainage x2, noting that while it does feel easier to breathe, she "feels like the swelling/inflammation inside her lungs can now be felt with the fluid gone." appetite "ok" but not eating much per nursing denies n/v/d/c ambulates from bed to commode and around room but BP now running lower with 2 liters fluid drained out so has been asked to call for help with any OOB needs Of note, her oxygen needs have been intensifying with progression and reaccumul ation of her effusion. She was moved to [facility] and is presently on 80% FiO2 with SpO2's in the low 90s. She is seen together with her Saleem and abril dtr at bedside. Review of Systems Review of Systems: All systems reviewed & are unremarkable except as noted in Subjective Physical Exam Constitutional: + acute distress, + cachectic, + frail appearing and cooperative Eyes: PERRL and EOM intact bilaterally ENMT: external ear and nose normal, oropharynx normal Mouth: + poor dentition Neck: trachea midline, no thyromegaly Respiratory: broadly diminished lung sounds on right with coarse crackles, +crackles/rhonchi on left, signif effort, +conversational dyspnea with use of accessory muscles, faint wheeze L>R; hyperemic chest, no obvious mass or lesions, diffusely tender to anterior and posterior palpation Cardiovascular: S1S2, mod JVD Gastrointestinal (Abdomen): scaphoid. BS diminished Musculoskeletal: tripod positioning, seated cross legged in bed, at times will bend forward at waist. Gait was not assessed. Skin: pale, cool, some venous insuff changes BLE, no edema; nails are clubbing/spoon shaped + onychomycotic nails Neurologic: AAOx3, mood improved this afternoon with improved pain relief Psychiatric: Orientation: alert and oriented x 3 Eye Contact: good eye contact Motor Behavior: no abnormal motor movements Speech: + pressured speech Affect: + anxious affect Thought Process: linear/logical thought process Insight: + limited insight Judgment: + limited judgement Results & Data Vital Signs (Past 12 Hours) Vital Signs Temp Pulse Pulse Pulse Resp BP BP 12/14/22 17:54 12/14/22 16:11 95 H 12/14/22 16:01 36.8 C 101 H 18 101/61 12/14/22 14:22 99 H 87/51 L 12/14/22 14:08 102 H 110/70 12/14/22 14:26 87 20 12/14/22 12:32 118 H 99/43 L 12/14/22 12:48 36.7 C 98 H 100/60 12/14/22 12:18 36.4 C L 94 H 18 106/74 12/14/22 08:00 12/14/22 10:58 103 H 20 12/14/22 08:10 36.7 C 95 H 18 101/67 12/14/22 07:21 110 H 20 Pulse Ox Pulse Ox O2 Del Method O2 Del Method O2 Flow Rate O2 Flow Rate FiO2 12/14/22 17:54 93 Other 25 12/14/22 16:11 12/14/22 16:01 91 High Flow Nasal Cannula 30 12/14/22 14:22 93 Other 26 80 12/14/22 14:08 93 Other 26 80 12/14/22 14:26 93 High Flow Nasal Cannula 25 80 12/14/22 12:32 12/14/22 12:48 90 Other 20 80 12/14/22 12:18 93 Oxymask 30 12/14/22 08:00 Other 30 85 12/14/22 10:58 91 High Flow Nasal Cannula 30 85 12/14/22 08:10 93 Oxymask 30 12/14/22 07:21 90 High Flow Nasal Cannula 30 85 Laboratory Results data reviewed Diagnostic Findings data reviewed PG Care Time/CCT Total # of Minutes Spent Total Time Spent: 100 Total Time Spent with Patient: Total time spent is greater than 50% in coordination of care (as documented) at patient's floor/unit and/or counseling patient: 60 min in face to face ACP 40 min with pt, exam, d/w teams Prolonged Care Time Prolonged Care Time: Yes Advanced Care Planning 93038 Advanced Care Planning 30 Min 55284 Advanced Care Planning Additional 30 Min [place] [address] SUB INP/OBS CARE 3/50MIN Patient Type Established History Comprehensive Exam Comprehensive Medical Decision Making High Complexity Diagnoses Palliative care by specialist Z51.5 Advanced care planning/counseling discussion Z71.89 Cancer related pain G89.3 Dyspnea and respiratory abnormalities R06.00; R06.89 Non-small cell lung cancer C34.90 Pulmonary embolism I26.99 Respiratory failure with hypoxia J96.91 COPD, severe J44.9 Anxiety F41.9 Additional Codes Advanced Care Planning - 37018 Advanced Care Planning 30 Min: 33059 Advanced Care Planning 30 Min ([id number]) Advanced Care Planning - 71893 Advanced Care Planning Additional 30 Min: 97903 Advanced Care Planning Additional 30 Min ([id number]) Prolonged Care Time - Prolonged Care Time: Yes ([id number])
[2022-12-15] MEDS: MoRPHine SULFATE IR 15 MG TAB (IMMEDIATE RELEASE) PO SCH ×4 (00:15→18:18)
[2022-12-15 02:38] LABS: Partial Thromboplastin Ratio 1.2; Partial Thromboplastin Time 32.5 Seconds (21.0-31.0)
[2022-12-15 02:52] LABS: Creatinine Clr Calc Pharmacy 98.6 ml/min; Est GFR (African American) 122.7 ml/min; Est GFR (Non-African American) 105.8 ml/min
[2022-12-15] MEDS: methylPREDNISolone 40 MG in SYRINGE 0 ML IV SCH ×3 (02:59→21:12)
[2022-12-15] MEDS ORDERED: HEPARIN SOD (PORCINE) 1000 UNIT/ML IV ONE ×2 (03:00→11:47)
[2022-12-15] MEDS: PIPERACILLIN/TAZOBACTAM 4.5 GM in DEXTROSE 5% 100 ML IV SCH ×3 (03:21→19:56)
[2022-12-15] MEDS: LACTATED RINGER'S 1,000 ML IV SCH (05:04)
[2022-12-15] MEDS: ALBUT/IPRATROP 3MG/0.5MG NEB 3 ML VIAL NEB SCH ×4 (07:10→19:59)
[2022-12-15] MEDS: HEPARIN SODIUM/DEXTROSE 25,000 UNITS/500 ML BAG IV SCH ×2 (07:58→16:35)
--- NOTE | 2022-12-15 08:04 | XRay Report ---
XR chest 1V portable HISTORY: Pleural effusion. Follow-up. Right chest tube placement. COMPARISON: Chest 12/14/2022. FINDINGS: A right chest tube remains unchanged in position. There is decrease in size in the right pl eural effusion with improved aeration within the right upper lobe. No pneumothorax. Mild interstitial thickening at the left lung base persist. The heart is normal in size. IMPRESSION: 1. The right chest tube is unchanged in position. 2. Decrease in size in the right pleural effusion with improved aeration within the right upper lobe. ACT 112: Negative or not required by law. Electronically signed by: Dirk Delaney M.D. 12/15/2022 8:03 AM
[2022-12-15] MEDS: DULoxetine HCL 30 MG CAP PO SCH (08:16)
[2022-12-15] MEDS: FLUTICASONE/VILANTEROL 100/25MCG 14 PUFFS/INHALER INH SCH (08:16)
[2022-12-15 11:06] LABS: Hematocrit (blood only) 30.3 % (37.0-47.0); Hemoglobin 9.8 g/dl (12.0-16.0); Mean Corpuscular Hemoglobin 26.7 pg (25.0-34.0); Mean Corpuscular Hgb Conc 32.3 g/dL (32.0-36.0); Mean Corpuscular Volume 82.6 fL (80.0-100.0); Platelet Count 259 K/uL (130-400); RDW Coefficient of Variation 19.3 % (11.5-14.5); RDW Standard Deviation 55.7 fL (36.4-46.3); Red Blood Count 3.67 M/uL (4.20-5.40)
[2022-12-15 11:33] LABS: Basophils # (auto) 0.03 K/uL (0-0.2); Basophils % (auto) 0.1 %; Hypersegmented Neutrophils 1+; Immature Granulocytes % (auto) 0.8 %; Lymphocytes # (auto) 0.57 K/uL (1.2-3.4); Lymphocytes % (auto) 2.3 %; Monocytes # (auto) 1.28 K/uL (0.11-0.59); Monocytes % (auto) 5.2 %; Neutrophils # (auto) 22.32 K/uL (1.40-6.50); Neutrophils % (auto) 91.6 %; Polychromasia 1+
[2022-12-15 11:33] LABS: Partial Thromboplastin Ratio 1.3; Partial Thromboplastin Time 35.8 Seconds (21.0-31.0)
[2022-12-15] MEDS ORDERED: HEPARIN IV BOLUS 2,000 UNITS in SYRINGE 0 ML IV ONE (12:00)
--- NOTE | 2022-12-15 12:42 | Pulmonology Progress Note ---
Date of Service December 15, 2022 Assessment & Plan (1) Malignant pleural effusion: Plan: Status post right Pleurx placement 12/14/2022. Improved aeration on chest x-ray today. I have asked the nurse to attach the Pleurx catheter to a Rachel drain and allow it to drain to gravity. Oncology following. Prognosis very poor overall. (2) Non-small cell lung cancer: Admission and Anticipated Discharge Date Admission Date: December 12, 2022 Subjective She remains on high flow. She also mild pain around the Pleurx catheter insertion site. She endorses shortness of breath with minimal exertion. Review of Systems Review of Systems: All systems reviewed & are unremarkable except as noted in HPI & below Physical Exam Physical Exam: Constitutional: Frail and ill-appearing female in mild distress. Eyes: Pupils are equal round and reactive to light. Conjunctivae are normal. Anicteric sclera. Ears nose, mouth and throat: Mallampati class 1. Normal posterior oropharynx. Uvula is midline. Neck: Trachea is midline. Visual inspection is normal. Respiratory: Minimal air entry on the right. Clear on the left. Cardiovascular: Regular rate and rhythm. No murmurs. No edema. Gastrointestinal: Normal bowel sounds, soft, nontender and nondistended. No hepatosplenomegaly noted. Musculoskeletal: No cyanosis. Patient is able to move all extremities. Strength is 5 out of 5 in the upper and lower extremities. Skin: No rashes, warm dry and intact. Pleurx catheter clean dry and intact. Neurologic: No obvious focal neurological deficits seen. Psychiatric: Alert and oriented x3 with a euthymic affect. Results & Data Results & Data Vital Signs (Past 12 Hours) Vital Signs Temp Pulse Pulse Resp BP Pulse Ox O2 Del Method 12/15/22 11:44 36.7 C 84 17 112/75 94 High Flow Nasal Cannula 12/15/22 11:00 92 H 24 90 High Flow Nasal Cannula 12/15/22 06:04 82 12/15/22 08:20 High Flow Nasal Cannula 12/15/22 07:41 36.5 C 77 18 112/69 90 High Flow Nasal Cannula 12/15/22 07:10 101 H 22 92 High Flow Nasal Cannula 12/15/22 04:46 36.5 C 88 20 108/72 91 High Flow Nasal Cannula 12/15/22 04:18 89 18 91 High Flow Nasal Cannula O2 Flow Rate FiO2 04/20/23 11:44 35 12/15/22 11:00 35 75 12/15/22 06:04 12/15/22 08:20 12/15/22 07:41 30 12/15/22 07:10 35 75 12/15/22 04:46 35 75 12/15/22 04:18 35 75 PG Care Time/CCT Total # of Minutes Spent Total Time Spent with Patient: Total time spent is greater than 50% in coordination of care (as documented) at patient's floor/unit and/or counseling patient: Coding Level of Care Code 38866 SUB INP/OBS CARE 235MIN Diagnoses Malignant pleural effusion J91.0 Non-small cell lung cancer C34.90
--- NOTE | 2022-12-15 14:33 | Palliative Care Progress Note ---
Date of Service December 15, 2022 Assessment & Plan (1) Palliative care by specialist: (2) Cancer related pain: Plan: Remains improved, no changes for now. (3) Dyspnea and respiratory abnormalities: Plan: Improved relief of air hunger with intermittent morphine (4) Non-small cell lung cancer: (5) Pulmonary embolism: (6) Respiratory failure with hypoxia: (7) COPD, severe: (8) Anxiety: Plan * Pain and dyspnea rx as ordered, no changes * Nutritional eval appreciated. She is awaiting a trial of supplements and tells me she will try to start eating more. I offered her some appetite stimulant options but for now she has declined. * Regardless of the risk, pt is willing to try chemo and would like to be considered for inpatient chemo since she would be monitored more closely. * Extensive psychosocial support and reassurance provided. While it would be appropriate to try and encourage her to work on some legacy projects, she is not in the mindset for mortality associated tasks. * I have updated nursing, oncology and primary team. * I will continue to follow. Thank you for allowing us to participate in the ongoing care of this patient. Please don't hesitate to call or page with any additional concerns. Dr. Zarina Arthur DNP Director, Palliative Care Admission and Anticipated Discharge Date Admission Date: December 12, 2022 Subjective Pain is managed to her liking still feeling chest is tight and some dyspnea but notes that the latter has improved from yesterday appetite is poor. today she is willing to admit this and notes she agreed to meet with millinery worker and nutrition, will be trying some supplements. Her lunch tray was in the room when I arrived; she told me "I ate some lunch" however when I lifted the lid, her meal was entirely untouched. She then states she had some of the coffee. very tired and tells me she has been up since 4am since being awoken for labs and then "a non stop line of visitors just keep coming in, all of you guys can't seem to just come in here all at once." tells me she is very appreciative of the meeting I had with her family yesterday because it has helped them open the door to deeper conversations about what she wants and what is the most likely realistic scenario for her Review of Systems Review of Systems: All systems reviewed & are unremarkable except as noted in Subjective Physical Exam Constitutional: + acute distress, + cachectic, + frail appearing and cooperative Eyes: PERRL and EOM intact bilaterally ENMT: external ear and nose normal, oropharynx normal Mouth: + poor dentition Neck: trachea midline, no thyromegaly Respiratory: broadly diminished lung sounds on right with coarse crackles, +crackles/rhonchi on left, signif effort, +conversational dyspnea with use of accessory muscles, faint wheeze L>R; hyperemic chest, no obvious mass or lesions, diffusely tender to anterior and posterior palpation Cardiovascular: S1S2, mod JVD Gastrointestinal (Abdomen): scaphoid. BS diminished Musculoskeletal: tripod positioning, seated cross legged in bed, at times will bend forward at waist. Gait was not assessed. Skin: pale, cool, some venous insuff changes BLE, no edema; nails are clubbing/spoon shaped + onychomycotic nails Neurologic: AAOx3, mood improved this afternoon with improved pain relief Psychiatric: Orientation: alert and oriented x 3 Eye Contact: good eye contact Motor Behavior: no abnormal motor movements Speech: + loud speech Affect: + anxious affect Thought Process: linear/logical thought process Insight: + limited insight Judgment: good judgement and + limited judgement Results & Data Vital Signs (Past 12 Hours) Vital Signs Temp Pulse Pulse Resp BP BP Pulse Ox 12/15/22 14:14 90 107/61 91 12/15/22 13:40 87 111/81 91 12/15/22 11:44 36.7 C 84 17 112/75 94 12/15/22 11:00 92 H 24 90 12/15/22 06:04 82 12/15/22 08:20 12/15/22 07:41 36.5 C 77 18 112/69 90 12/15/22 07:10 101 H 22 92 12/15/22 04:46 36.5 C 88 20 108/72 91 12/15/22 04:18 89 18 91 O2 Del Method O2 Flow Rate FiO2 12/15/22 14:14 High Flow Nasal Cannula 30 70 12/15/22 13:40 High Flow Nasal Cannula 30 70 12/15/22 11:44 High Flow Nasal Cannula 35 12/15/22 11:00 High Flow Nasal Cannula 35 75 12/15/22 06:04 12/15/22 08:20 High Flow Nasal Cannula 12/15/22 07:41 High Flow Nasal Cannula 30 12/15/22 07:10 High Flow Nasal Cannula 35 75 12/15/22 04:46 High Flow Nasal Cannula 35 75 12/15/22 04:18 High Flow Nasal Cannula 35 75 Laboratory Results data reviewed Diagnostic Findings data reviewed PG Care Time/CCT Total # of Minutes Spent Total Time Spent: 65 Total Time Spent with Patient: Total time spent is greater than 50% in coordination of care (as documented) at patient's floor/unit and/or counseling patient: Coding [place] [address] SUB INP/OBS CARE 3/50MIN Patient Type Established History Comprehensive Exam Comprehensive Medical Decision Making High Complexity Diagnoses Palliative care by specialist Z51.5 Cancer related pain G89.3 Dyspnea and respiratory abnormalities R06.00; R06.89 Non-small cell lung cancer C34.90 Pulmonary embolism I26.99 Respiratory failure with hypoxia J96.91 COPD, severe J44.9 Anxiety F41.9
--- NOTE | 2022-12-15 14:38 | XRay Report ---
XR chest 1V portable HISTORY: 52 years-old Female pleural effusion follow-up study in a patient with right pleural effusi on COMPARISON: Chest radiograph of same day at 6:57 AM TECHNIQUE: AP view of the chest FINDINGS: Small right apical pneumothorax, pleural separation of approximately 1.3 cm. Cardiomediastinal and hi lar silhouettes are unchanged. Large right pleural effusion with right lung volume loss and right upp er lung consolidation again noted. Small left pleural effusion suggested along with progressive left basilar consolidation. Degenerative changes of the shoulders and spine. Unchanged positioning of the right-sided chest tube. Severe pulmonary emphysema. IMPRESSION: 1. Right-sided hydropneumothorax with large amount of pleural fluid within the right hemithorax again noted. 2. Stable positioning of the right-sided chest tube. 3. Severe pulmonary emphysema. 4. Mildly progressed left basilar consolidation. ACT 112: Negative or not required by law. The above report was generated using voice recognition software. It may contain grammatical, syntax o r spelling errors. Electronically signed by: Maikel Peñaloza M.D. 12/15/2022 2:36 PM
[2022-12-15] MEDS: MoRPHine SULFATE 2 MG/ML CARP IV PRN ×2 (16:14→19:46)
--- NOTE | 2022-12-15 17:44 | Hospitalist Progress Note ---
Date of Service December 15, 2022 Assessment & Plan (1) Acute respiratory failure with hypoxia: (2) Malignant pleural effusion: (3) Non-small cell lung cancer: Plan: (4) Pulmonary embolism: (5) COPD, severe: Plan: per Dr. Olmstead's notes with addendum: Patient is a 52-year-old female with past medical history of smoking, recently diagnosed stage IV non-small cell cancer (admitted in [facility] from 11/14/2022 to 12/01/2022), recent PE on Eliquis. She also had thoracentesis done on 11/16/2022 Patient presented to the ED with shortness of breath. Chest x-ray on admission personally reviewed; complete opacification of right hemithorax. CT chest without large malignant right pleural effusion, complete heterogeneous consolidation of right lung. Metastatic supraclavicular, mediastinal and hilar lymphadenopathy. Severe pulmonary emphysema, hepatic and po possible adrenal metastasis. Metastatic lung cancer Acute respiratory failure with hypoxia History of recent PE History of severe COPD. Possible sepsis secondary to pneumonia. Presented with increasing shortness of breath. Chest x-ray on admission personally reviewed; complete opacification of right hemithorax. CT chest without large malignant right pleural effusion, complete heterogeneous consolidation of right lung. Metastatic supraclavicular, mediastinal and hilar lymphadenopathy. Severe pulmonary emphysema, hepatic and po possible adrenal metastasis. On presentation; leukocytosis present, lactate elevated, hypotensive 12/14 Still on high flow oxygen Status post Pleurx catheter placement 12/14, with drainage of 1 L pleural fluid Repeat chest x-ray showing minimal improvement Pleural fluid culture: Pending Blood cultures: Negative so far Continue with IV Zosyn Continue with Solu-Medrol 40 mg every 8 hours Continue DuoNeb Continue with usual Breo PleurX drainage per pulmonary service Palliative service on board 12/15 Still on high flow oxygen but clinically improved compared to yesterday Chest x-ray showing some improved aeration PleurX catheter drainage yesterday 2 L Pleurx catheter drain to gravity today Continue IV Zosyn Taper Solu-Medrol to every 12, continue DuoNeb, Breo Status post right thoracentesis on December 13, 2022 with removal of 1.5 L of fluid. Repeat chest x-ray after thoracentesis personally reviewed; right hemothorax completely opacified. Slight improvement of leftward midline shift. Heparin to be resumed at 8 PM as per pulmonology. Discussed with pulmonology; patient has very advanced malignancy. Can consider Pleurx catheter tomorrow depending on how patient's look and feel. Discussed with palliative care; patient is currently in denial and is overwhelmed with diagnosis. Patient is started on opioids for your hunger and pain as per palliative care. Pleural fluid analysis : LDH highly elevated; exudative. Await cytology Oncology consulted; appreciate recommendation. Continue on Zosyn and vancomycin for now. DC Vanco if blood culture is negative. Continue antibiotic for 7 days. 12/15 Management per above Chronic conditions; COPDCT chest shows advanced emphysema; on DuoNebs every 6 hours. Continue home inhalers. As per the patient, patient was recently started on prednisone 10 mg once daily at [facility]. Anxietycontinue Cymbalta History of recent PEcontinue on heparin drip for now. Will restart Eliquis if patient is not undergoing any procedure related the hospitalization. Full code DVT prophylaxis heparin drip for PE Disposition: Pending Admission and Anticipated Discharge Date Admission Date: December 12, 2022 Subjective Follow-up for left-sided pleural effusion, lung cancer, etc. Seen resting in bed, sitting up, on high flow oxygen Not in distress, appears comfortable States breathing is somewhat improved compared to yesterday She still has some dry cough Pain well controlled No fevers or chills No other symptoms Review of Systems Review of Systems: all noted and negative except for above Physical Exam Physical Exam: General- oriented x 3, not in distress, speaks in sentences with no effort or accessory muscle use Eyes- anicteric Neck- no JVD Lungs-decreased breath sounds on the right, no wheezing Clear on the left Heart- normal rate, regular rhythm; no murmurs Abdomen- normal bowel sounds, nondistended, soft, nontender Extremities- no pretibial edema, no calf tenderness Neuro- alert, oriented x 3; no gross focal neurologic deficits Skin- warm & dry Results & Data Results & Data Vital Signs (Past 12 Hours) Vital Signs Temp Pulse Pulse Resp BP BP Pulse Ox 12/15/22 16:00 12/15/22 17:00 12/15/22 15:35 92 H 20 94 12/15/22 15:32 92 H 20 94 12/15/22 15:20 89 17 100/65 94 12/15/22 14:08 84 12/15/22 14:14 90 107/61 91 12/15/22 13:40 87 111/81 91 12/15/22 11:44 36.7 C 84 17 112/75 94 12/15/22 11:00 92 H 24 90 12/15/22 06:04 82 12/15/22 08:20 12/15/22 07:41 36.5 C 77 18 112/69 90 12/15/22 07:10 101 H 22 92 Pulse Ox O2 Del Method O2 Del Method O2 Flow Rate O2 Flow Rate FiO2 12/15/22 16:00 Other 30 70 12/15/22 17:00 92 Other 30 12/15/22 15:35 High Flow Nasal Cannula 30 70 12/15/22 15:32 High Flow Nasal Cannula 30 70 12/15/22 15:20 High Flow Nasal Cannula 35 12/15/22 14:08 12/15/22 14:14 High Flow Nasal Cannula 30 70 12/15/22 13:40 High Flow Nasal Cannula 30 70 12/15/22 11:44 High Flow Nasal Cannula 35 12/15/22 11:00 High Flow Nasal Cannula 35 75 12/15/22 06:04 12/15/22 08:20 High Flow Nasal Cannula 12/15/22 07:41 High Flow Nasal Cannula 30 12/15/22 07:10 High Flow Nasal Cannula 35 75 all noted and reviewed including below
[2022-12-15 19:03] LABS: Partial Thromboplastin Ratio 1.3
[2022-12-15] MEDS ORDERED: MAGNESIUM SULFATE / D5W 1 GM/100 ML BAG IV ONE (21:45)
[2022-12-15] MEDS ORDERED: POTASSIUM CHLORIDE PWD 20 MEQ PACK PO STA (21:46)
[2022-12-16] MEDS: MoRPHine SULFATE IR 15 MG TAB (IMMEDIATE RELEASE) PO SCH ×4 (00:15→18:19)
[2022-12-16 01:57] LABS: Partial Thromboplastin Ratio 1.1; Partial Thromboplastin Time 30.6 Seconds (21.0-31.0)
[2022-12-16] MEDS ORDERED: HEPARIN SOD (PORCINE) 1000 UNIT/ML IV ONE (02:15)
--- NOTE | 2022-12-16 03:53 | Communication Note ---
Date of Service: December 16, 2022 Patient desaturating to the 80s whenever she would ambulate to go to the bathroom as per RN. Patient not mindful of chest tube as per RN. Kingsley catheter placed as per RN recommendation.
[2022-12-16] MEDS: PIPERACILLIN/TAZOBACTAM 4.5 GM in DEXTROSE 5% 100 ML IV SCH ×3 (04:04→20:26)
[2022-12-16] MEDS: guaiFENesin SUGAR FREE 200 MG/10 ML UDC PO PRN ×3 (04:11→23:55)
[2022-12-16] MEDS ORDERED: MAGNESIUM SULFATE / D5W 1 GM/100 ML BAG IV ONE (04:15)
[2022-12-16] MEDS: ALBUT/IPRATROP 3MG/0.5MG NEB 3 ML VIAL NEB SCH ×2 (07:25→11:20)
[2022-12-16] MEDS: FLUTICASONE/VILANTEROL 100/25MCG 14 PUFFS/INHALER INH SCH (08:06)
[2022-12-16] MEDS: DULoxetine HCL 30 MG CAP PO SCH (08:08)
--- NOTE | 2022-12-16 08:08 | XRay Report ---
XR chest 1V portable HISTORY: 52 years-old Female follow up effusion right pleural effusion COMPARISON: 12/15/2022 TECHNIQUE: AP view of the chest FINDINGS: Small right apical pneumothorax, pleural separation of approximately 1.2 cm. Cardiomediastinal and hi lar silhouettes are unchanged. Mildly decreased size of the large right pleural effusion with right l lul volume loss and right upper lung consolidation. Small left pleural effusion suggested along with unchanged left basilar consolidation. Degenerative changes of the shoulders and spine. Unchanged posi tioning of the right-sided chest tube. Mild subcutaneous emphysema of the right lateral chest wall. S evere pulmonary emphysema. IMPRESSION: 1. Right-sided hydropneumothorax with mildly decreased size of the large right pleural effusion. 2. Stable positioning of the right-sided chest tube. 3. Severe pulmonary emphysema. 4. Persistent mild left basilar consolidation. ACT 112: Negative or not required by law. The above report was generated using voice recognition software. It may contain grammatical, syntax o r spelling errors. Electronically signed by: Maikel Peñaloza M.D. 12/16/2022 8:07 AM
[2022-12-16 09:05] LABS: Est GFR (African American) 136.7 ml/min
[2022-12-16] MEDS: methylPREDNISolone 40 MG in SYRINGE 0 ML IV SCH (09:12)
[2022-12-16 09:30] LABS: Partial Thromboplastin Ratio 1.5
[2022-12-16 09:38] LABS: Partial Thromboplastin Time 42.4 Seconds (21.0-31.0)
[2022-12-16] MEDS ORDERED: FUROSEMIDE INJ 20 MG/2 ML VIAL IV ONE (10:04)
--- NOTE | 2022-12-16 10:19 | Palliative Care Progress Note ---
Date of Service December 16, 2022 Assessment & Plan (1) Palliative care by specialist: (2) Advanced care planning/counseling discussion: Plan: Met with pt, , dtrs x2 for a 45min face to face ACP discussion/family meeting; discussed HFNC isn't weaning like we hoped and output from pleurx remains high. Dr. Lazar planning to visit later today. Results from [facility] did not indicate she would be eligible for non cytotoxic options and in general, her PS now is fragile/tenuous such that inpt chemo may not be safe. We also reviewed code status. tells me he's been trying to discuss but ot has refused. She offers that she doesn't want to on machines and also wants to be with her family if at the end of life. I told her i did not believe CPR would be of any meaningful benefit and that given her advanced lung disease plus lung cancer, frailty, declining performance status and worsening oxygen needs. She told me she will give it serious thought and try to make a decision in the next 1-2 days. (3) Cancer related pain: Plan: Remains controlled to her liking, no changes for now. (4) Dyspnea and respiratory abnormalities: Plan: Improved relief of air hunger with intermittent morphine (5) Non-small cell lung cancer: (6) Pulmonary embolism: (7) Respiratory failure with hypoxia: (8) COPD, severe: (9) Anxiety: Plan Discussions as noted above. No change to opioid. Await discussion with oncology and final decision re code status. Family is in agreement for no code and have expressed wish to have pt home with them if time is running out. I have updated nursing, oncology and primary team. Please note: the above document was generated using voice recognition software. It may contain unintentional grammatical, syntax or spelling errors. Any formal questions or concerns about the content, text or information contained within the body of this dictation should be directly addressed to the provider for clarification. Thank you for allowing us to participate in the ongoing care of this patient. Please don't hesitate to call or page with any additional concerns. Dr. Zarina Arthur DNP Director, Palliative Care Admission and Anticipated Discharge Date Admission Date: December 12, 2022 Subjective seen with family present pain is ok, dyspnea is somewhat better still had 2 liters output from pleurx yesterday and HFNC remains at 75%/not tolerating wean remains tired, frustrated at not sleeping well, complains of frequent disruptions Review of Systems Review of Systems: All systems reviewed & are unremarkable except as noted in Subjective Physical Exam Constitutional: + acute distress, + cachectic, + frail appearing and cooperative Eyes: PERRL and EOM intact bilaterally ENMT: external ear and nose normal, oropharynx normal Mouth: + poor dentition Neck: trachea midline, no thyromegaly Respiratory: broadly diminished lung sounds on right with coarse crackles, +crackles/rhonchi on left, signif effort, +conversational dyspnea with use of accessory muscles, faint wheeze L>R; hyperemic chest, no obvious mass or lesions, diffusely tender to anterior and posterior palpation Cardiovascular: S1S2, mod JVD Gastrointestinal (Abdomen): scaphoid. BS diminished Musculoskeletal: tripod positioning, seated cross legged in bed, at times will bend forward at waist. Gait was not assessed. Skin: pale, cool, some venous insuff changes BLE, no edema; nails are clubbing/spoon shaped + onychomycotic nails Neurologic: AAOx3, mood improved this afternoon with improved pain relief Psychiatric: Orientation: alert and oriented x 3 Eye Contact: good eye contact Motor Behavior: no abnormal motor movements Speech: + loud speech Affect: + anxious affect Thought Process: linear/logical thought process Insight: + limited insight Judgment: good judgement and + limited judgement Results & Data Vital Signs (Past 12 Hours) Vital Signs Temp Pulse Pulse Resp BP BP Pulse Ox 12/16/22 07:42 90 12/16/22 07:27 95 H 20 96 12/16/22 07:12 36.5 C 90 23 107/65 94 12/16/22 03:27 36.7 C 98 H 14 105/67 95 12/16/22 02:13 95 H 22 94 12/15/22 22:47 36.6 C 92 H 18 113/76 92 12/15/22 23:01 92 H 12/15/22 22:59 94 H 22 96 O2 Del Method O2 Flow Rate FiO2 12/16/22 07:42 12/16/22 07:27 High Flow Nasal Cannula 30 85 12/16/22 07:12 High Flow Nasal Cannula 30 12/16/22 03:27 High Flow Nasal Cannula 12/16/22 02:13 High Flow Nasal Cannula 30 80 12/15/22 22:47 High Flow Nasal Cannula 12/15/22 23:01 12/15/22 22:59 High Flow Nasal Cannula 30 70 PG Care Time/CCT Total # of Minutes Spent Total Time Spent: 90 Total Time Spent with Patient: Total time spent is greater than 50% in coordination of care (as documented) at patient's floor/unit and/or counseling patient: 45 min with pt, 45 min with pt/family for acp Advanced Care Planning 58575 Advanced Care Planning 30 Min [place] [address] SUB INP/OBS CARE 3/50MIN Patient Type Established Medical Decision Making High Complexity Diagnoses Palliative care by specialist Z51.5 Advanced care planning/counseling discussion Z71.89 Cancer related pain G89.3 Dyspnea and respiratory abnormalities R06.00; R06.89 Non-small cell lung cancer C34.90 Pulmonary embolism I26.99 Respiratory failure with hypoxia J96.91 COPD, severe J44.9 Anxiety F41.9 Additional Codes Advanced Care Planning - 53328 Advanced Care Planning 30 Min: 42514 Advanced Care Planning 30 Min ([id number])
[2022-12-16] MEDS: HEPARIN SODIUM/DEXTROSE 25,000 UNITS/500 ML BAG IV SCH ×2 (10:33→20:23)
--- NOTE | 2022-12-16 11:53 | Pulmonology Progress Note ---
Date of Service December 16, 2022 Assessment & Plan (1) Malignant pleural effusion: Plan: Status post right Pleurx placement 12/14/2022. Improved aeration on chest x-ray. Continue drainage to gravity. There is a small pneumothorax which is likely secondary to trapped lung physiology given the extensive tumor burden. Cytology from pleural fluid consistent with metastatic adenocarcinoma. Pleural fluid cultures negative to date. She remains on high flow nasal cannula with minimal success in weaning. Oncology following. Prognosis very poor overall. (2) Non-small cell lung cancer: (3) Trapped lung: Admission and Anticipated Discharge Date Admission Date: December 12, 2022 Subjective Patient reports that she is very fatigued and short of breath with minimal exertion. She has some mild pain around the Pleurx catheter insertion site. Appetite is poor. Her Pleurx catheter continues to put out a large amount of fluid. Review of Systems Review of Systems: All systems reviewed & are unremarkable except as noted in HPI & below Physical Exam Physical Exam: Constitutional: Frail and ill-appearing female in mild distress. Eyes: Pupils are equal round and reactive to light. Conjunctivae are normal. Anicteric sclera. Ears nose, mouth and throat: Mallampati class 1. Normal posterior oropharynx. Uvula is midline. Neck: Trachea is midline. Visual inspection is normal. Respiratory: Minimal air entry on the right. Clear on the left. Cardiovascular: Regular rate and rhythm. No murmurs. No edema. Gastrointestinal: Normal bowel sounds, soft, nontender and nondistended. No hepatosplenomegaly noted. Musculoskeletal: No cyanosis. Patient is able to move all extremities. Strength is 5 out of 5 in the upper and lower extremities. Skin: No rashes, warm dry and intact. Pleurx catheter clean dry and intact. Neurologic: No obvious focal neurological deficits seen. Psychiatric: Alert and oriented x3 with a euthymic affect. Results & Data Results & Data Vital Signs (Past 12 Hours) Vital Signs Temp Pulse Pulse Resp BP Pulse Ox O2 Del Method 12/16/22 11:20 96 H 22 91 High Flow Nasal Cannula 12/16/22 08:15 High Flow Nasal Cannula 12/16/22 11:18 36.7 C 96 H 21 112/76 93 High Flow Nasal Cannula 12/16/22 07:42 90 12/16/22 07:27 95 H 20 96 High Flow Nasal Cannula 12/16/22 07:12 36.5 C 90 23 107/65 94 High Flow Nasal Cannula 12/16/22 03:27 36.7 C 98 H 14 105/67 95 High Flow Nasal Cannula 12/16/22 02:13 95 H 22 94 High Flow Nasal Cannula O2 Flow Rate FiO2 12/16/22 11:20 30 70 12/16/22 08:15 30 70 12/16/22 11:18 30 12/16/22 07:42 12/16/22 07:27 30 85 12/16/22 07:12 30 12/16/22 03:27 12/16/22 02:13 30 80 PG Care Time/CCT Total # of Minutes Spent Total Time Spent with Patient: Total time spent is greater than 50% in coordination of care (as documented) at patient's floor/unit and/or counseling patient: Coding Level of Care Code 00929 SUB INP/OBS CARE 2/35MIN Diagnoses Malignant pleural effusion J91.0 Non-small cell lung cancer C34.90 Trapped lung J98.19
--- NOTE | 2022-12-16 12:27 | Hospitalist Progress Note ---
Date of Service December 16, 2022 Assessment & Plan (1) Non-small cell lung cancer: Plan: Received and reviewed records from [place]. Material from thoracentesis, bronchial lavage, and EBUS FNA biopsy of right lung mass all showed a pattern of adenocarcinoma consistent with lung origin. PD-L1 TPS score was <= 1%, there were no relevant genomic alterations of EGFR, ALK, BRAF, ERBB2, MET, NTRK 1/2, ROS1, or CMET. There were genomic alterations of KRAS and STK11 as well as TP53 but these are not relevant frontline targets. Microsatellite instability and tumor mutational burden could not be assessed. I spoke at length with the patient. Her and 2 daughters were in the room and participated in the conversation. We discussed that the genomic profile does not indicate that she would have a likely meaningful response to immune checkpoint inhibitor therapy nor are there any standard frontline targeted agents that we would expect to be reasonably effective. We discussed that with the malignant pleural effusion and some questions of a liver metastasis and/or sclerotic bone mets she has stage IV disease. In that setting, cancer would be potentially "treatable" but there would be no curative options. We discussed that with traditional chemotherapy, standard of care would be to withhold chemotherapy in favor of supportive care only for poor performance status patients (ECOG 3 or 4) because of evidence-based findings that life may be paradoxically shortened by the side effects of cytotoxic's putting her at increased risk for bleeding, infection, or other organ damage. I indicated that for those patients not candidates for ICI or targeted therapies, our approach would be to do anything and everything we could to improve performance status sufficiently to consider a cytotoxic approach. Discussed that we are working very hard in her to achieve just that but it is not clear whether we will indeed be able to bring her up to a sufficient functionality to consider chemotherapy intervention. Plan Based on the molecular profile from [place], she is not a candidate for ICI or for targeted therapy NCCN guidelines suggest supportive care only in ECOG 3/4 patient's with metastatic non-small cell lung cancer If aggressive intervention can improve her functionality we could certainly reconsider chemotherapy specific options I spoke at length with the patient, her and daughters and answered their questions which were appropriate and to the point. I believe that they all do understand that we may not have all the answers we would like to have for this situation. We will monitor. Admission and Anticipated Discharge Date Admission Date: December 12, 2022 Subjective Feels she is doing some better but still dyspneic at rest. Physical Exam Physical Exam: ECOG 3/4 Wearing oxygen but obviously still dyspneic and extremely fatigued. Neurologically seems intact with intact cognitive function and good capacity for medical decision making Results & Data Results & Data Vital Signs (Past 12 Hours) Vital Signs Temp Pulse Pulse Resp BP Pulse Ox O2 Del Method 12/16/22 11:20 96 H 22 91 High Flow Nasal Cannula 12/16/22 08:15 High Flow Nasal Cannula 12/16/22 11:18 36.7 C 96 H 21 112/76 93 High Flow Nasal Cannula 12/16/22 07:42 90 12/16/22 07:27 95 H 20 96 High Flow Nasal Cannula 12/16/22 07:12 36.5 C 90 23 107/65 94 High Flow Nasal Cannula 12/16/22 03:27 36.7 C 98 H 14 105/67 95 High Flow Nasal Cannula 12/16/22 02:13 95 H 22 94 High Flow Nasal Cannula O2 Flow Rate FiO2 12/16/22 11:20 30 70 12/16/22 08:15 30 70 12/16/22 11:18 30 12/16/22 07:42 12/16/22 07:27 30 85 12/16/22 07:12 30 12/16/22 03:27 12/16/22 02:13 30 80 PG Care Time/CCT Total # of Minutes Spent Total Time Spent with Patient: Total time spent is greater than 50% in coordination of care (as documented) at patient's floor/unit and/or counseling patient: Coding Level of Care Code 81655 SUB INP/OBS CARE 09/21MIN Diagnoses Non-small cell lung cancer C34.90
--- NOTE | 2022-12-16 16:13 | Hospitalist Progress Note ---
Date of Service December 16, 2022 Assessment & Plan (1) Acute respiratory failure with hypoxia: (2) Malignant pleural effusion: (3) Non-small cell lung cancer: Plan: (4) Pulmonary embolism: (5) COPD, severe: Plan: per Dr. Olmstead's notes with addendum: Patient is a 52-year-old female with past medical history of smoking, recently diagnosed stage IV non-small cell cancer (admitted in [facility] from 11/14/2022 to 12/01/2022), recent PE on Eliquis. She also had thoracentesis done on 11/16/2022 Patient presented to the ED with shortness of breath. Chest x-ray on admission personally reviewed; complete opacification of right hemithorax. CT chest without large malignant right pleural effusion, complete heterogeneous consolidation of right lung. Metastatic supraclavicular, mediastinal and hilar lymphadenopathy. Severe pulmonary emphysema, hepatic and po possible adrenal metastasis. Metastatic lung cancer Acute respiratory failure with hypoxia History of recent PE History of severe COPD. Possible sepsis secondary to pneumonia. Presented with increasing shortness of breath. Chest x-ray on admission personally reviewed; complete opacification of right hemithorax. CT chest without large malignant right pleural effusion, complete heterogeneous consolidation of right lung. Metastatic supraclavicular, mediastinal and hilar lymphadenopathy. Severe pulmonary emphysema, hepatic and po possible adrenal metastasis. On presentation; leukocytosis present, lactate elevated, hypotensive 12/14 Still on high flow oxygen Status post Pleurx catheter placement 12/14, with drainage of 1 L pleural fluid Repeat chest x-ray showing minimal improvement Pleural fluid culture: Pending Blood cultures: Negative so far Continue with IV Zosyn Continue with Solu-Medrol 40 mg every 8 hours Continue DuoNeb Continue with usual Breo PleurX drainage per pulmonary service Palliative service on board 12/15 Still on high flow oxygen but clinically improved compared to yesterday Chest x-ray showing some improved aeration PleurX catheter drainage yesterday 2 L Pleurx catheter drain to gravity today Continue IV Zosyn Taper Solu-Medrol to every 12, continue DuoNeb, Breo 12/15 Pleurx catheter now with drain to gravity 700 cc output so far Continue IV Zosyn DC Solu-Medrol As needed DuoNeb Wean off high flow oxygen if possible Status post right thoracentesis on December 13, 2022 with removal of 1.5 L of fluid. Repeat chest x-ray after thoracentesis personally reviewed; right hemothorax completely opacified. Slight improvement of leftward midline shift. Heparin to be resumed at 8 PM as per pulmonology. Discussed with pulmonology; patient has very advanced malignancy. Can consider Pleurx catheter tomorrow depending on how patient's look and feel. Discussed with palliative care; patient is currently in denial and is overwhelmed with diagnosis. Patient is started on opioids for your hunger and pain as per palliative care. Pleural fluid analysis : LDH highly elevated; exudative. Await cytology Oncology consulted; appreciate recommendation. Continue on Zosyn and vancomycin for now. DC Vanco if blood culture is negative. Continue antibiotic for 7 days. 12/16 Management per above Chronic conditions; COPDCT chest shows advanced emphysema; on DuoNebs every 6 hours. Continue home inhalers. As per the patient, patient was recently started on prednisone 10 mg once daily at [facility]. Anxietycontinue Cymbalta History of recent PEcontinue on heparin drip for now. Will restart Eliquis if patient is not undergoing any procedure related the hospitalization. Full code DVT prophylaxis heparin drip for PE Disposition: Pending Admission and Anticipated Discharge Date Admission Date: December 12, 2022 Subjective Follow-up for pleural effusion, lung cancer, etc. Seen sitting up in bed, on high flow oxygen Not in distress, appears comfortable States she feels okay overall Breathing somewhat better compared to yesterday Pain well controlled No fevers or chills, abdominal pain, nausea vomiting No other symptoms Review of Systems Review of Systems: all noted and negative except for above Physical Exam Physical Exam: General- oriented x 3, not in distress, speaks in sentences with no effort or accessory muscle use Frail looking, somewhat weak Eyes- anicteric Neck- no JVD Lungs-decreased breath sounds right lung mcdermott, clear on the left No wheezing Heart- normal rate, regular rhythm; no murmurs Abdomen- normal bowel sounds, nondistended, soft, nontender Extremities- no pretibial edema, no calf tenderness Neuro- alert, oriented x 3; no gross focal neurologic deficits Skin- warm & dry Results & Data Results & Data Vital Signs (Past 12 Hours) Vital Signs Temp Pulse Pulse Resp BP Pulse Ox O2 Del Method 12/16/22 15:14 99 H 04/21/23 11:20 96 H 22 91 High Flow Nasal Cannula 12/16/22 08:15 High Flow Nasal Cannula 12/16/22 11:18 36.7 C 96 H 21 112/76 93 High Flow Nasal Cannula 12/16/22 07:42 90 12/16/22 07:27 95 H 20 96 High Flow Nasal Cannula 12/16/22 07:12 36.5 C 90 23 107/65 94 High Flow Nasal Cannula O2 Flow Rate FiO2 12/16/22 15:14 12/16/22 11:20 30 70 12/16/22 08:15 30 70 12/16/22 11:18 30 12/16/22 07:42 12/16/22 07:27 30 85 12/16/22 07:12 30 all noted and reviewed including below
[2022-12-16] MEDS: MIRTAZAPINE TAB 15 MG TAB PO SCH (20:26)
[2022-12-17] MEDS: ALBUT/IPRATROP 3MG/0.5MG NEB 3 ML VIAL NEB PRN ×2 (00:16→07:00)
[2022-12-17] MEDS: MoRPHine SULFATE IR 15 MG TAB (IMMEDIATE RELEASE) PO SCH ×4 (00:35→18:04)
[2022-12-17] MEDS: PIPERACILLIN/TAZOBACTAM 4.5 GM in DEXTROSE 5% 100 ML IV SCH ×3 (03:53→20:49)
[2022-12-17] MEDS: HEPARIN SODIUM/DEXTROSE 25,000 UNITS/500 ML BAG IV SCH ×3 (05:20→20:04)
[2022-12-17] MEDS: ONDANSETRON INJ 2 MG/ML 2 ML VIAL IV PRN ×2 (05:31→19:45)
[2022-12-17 07:28] LABS: Partial Thromboplastin Ratio 1.3
--- NOTE | 2022-12-17 07:57 | XRay Report ---
XR chest 1V portable HISTORY: 52 years-old Female follow up effusion large right pleural effusion COMPARISON: 12/16/2022 TECHNIQUE: AP view of the chest FINDINGS: Previous noted small right apical pneumothorax is no longer identified. Cardiomediastinal and hilar s ilhouettes are unchanged. Mild increased size of the large right pleural effusion. Right lung volume loss and right upper lung consolidation is also similar to prior with slightly decreased aeration of the right lung. Small left pleural effusion suggested along with unchanged left basilar consolidation . Degenerative changes of the shoulders and spine. Unchanged positioning of the right-sided chest tub e. Mild subcutaneous emphysema of the right lateral chest wall. Severe pulmonary emphysema. IMPRESSION: 1. The previously noted small right apical pneumothorax is not identified on today's study. 2. Large right pleural effusion has slightly increased in size. 3. Stable positioning of the right-sided chest tube. 4. Mildly decreased aeration of the right lung compared to yesterday's exam. ACT 112: Negative or not required by law. The above report was generated using voice recognition software. It may contain grammatical, syntax o r spelling errors. Electronically signed by: Maikel Peñaloza M.D. 12/17/2022 7:56 AM
[2022-12-17] MEDS: DULoxetine HCL 20 MG CAP PO SCH (09:05)
[2022-12-17] MEDS: FLUTICASONE/VILANTEROL 100/25MCG 14 PUFFS/INHALER INH SCH (09:05)
[2022-12-17] MEDS ORDERED: Nursing to Pharmacy Communication SCH (09:15)
--- NOTE | 2022-12-17 13:03 | Pulmonology Progress Note ---
Date of Service December 17, 2022 Assessment & Plan (1) Malignant pleural effusion: Plan: Status post right Pleurx placement 12/14/2022. Improved aeration on chest x-ray. Continue drainage to gravity. There is a small pneumothorax which is likely secondary to trapped lung physiology given the extensive tumor burden. I have switched her from waterseal to suction at 20 cm H2O via the Rachel. Cytology from pleural fluid consistent with metastatic adenocarcinoma. Pleural fluid cultures negative to date. I had a lengthy discussion with her regarding CODE STATUS. She understands that she is gravely ill. She notes that she understands that switching to DNR/DNI would mean that she would not undergo ACLS protocol in the event of a cardiac or respiratory arrest. However, she states that she wants us to "do what we have to do" and she will not clarify her position regarding her CODE STATUS. Thus she remains a full code at this time. Given her escalating oxygen requirements, I would have a low threshold for transfer to the ICU. I did update the ICU provider regarding her condition and the possibility of needing transfer later today. (2) Non-small cell lung cancer: (3) Trapped lung: Admission and Anticipated Discharge Date Admission Date: December 12, 2022 Subjective The patient has increasing oxygen demands despite adequate drainage from the Pleurx catheter. She denies any shortness of breath. Her appetite is essentially nil. Her p.o. intake has been minimal. She is anxious and upset about her diagnosis. Review of Systems Review of Systems: All systems reviewed & are unremarkable except as noted in HPI & below Physical Exam Physical Exam: Constitutional: Frail and ill-appearing female in mild distress. Eyes: Pupils are equal round and reactive to light. Conjunctivae are normal. Anicteric sclera. Ears nose, mouth and throat: Mallampati class 1. Normal posterior oropharynx. Uvula is midline. Neck: Trachea is midline. Visual inspection is normal. Respiratory: Minimal air entry on the right. Clear on the left. Cardiovascular: Regular rate and rhythm. No murmurs. No edema. Gastrointestinal: Normal bowel sounds, soft, nontender and nondistended. No hepatosplenomegaly noted. Musculoskeletal: No cyanosis. Patient is able to move all extremities. Strength is 5 out of 5 in the upper and lower extremities. Skin: No rashes, warm dry and intact. Pleurx catheter clean dry and intact. Neurologic: No obvious focal neurological deficits seen. Psychiatric: Alert and oriented x3 with a euthymic affect. Results & Data Results & Data Vital Signs (Past 12 Hours) Vital Signs Temp Pulse Pulse Resp BP Pulse Ox O2 Del Method 12/17/22 11:27 120 H 17 90 High Flow Nasal Cannula 12/17/22 10:54 36.8 C 113 H 22 101/71 91 High Flow Nasal Cannula 12/17/22 08:45 114 H 12/17/22 08:45 High Flow Nasal Cannula 12/17/22 07:25 36.7 C 121 H 23 96/59 L 92 High Flow Nasal Cannula 12/17/22 07:01 120 H 26 H 90 High Flow Nasal Cannula 12/17/22 03:32 36.6 C 104 H 20 106/71 91 High Flow Nasal Cannula 12/17/22 02:45 115 H 20 91 High Flow Nasal Cannula O2 Flow Rate FiO2 12/17/22 11:27 35 90 12/17/22 10:54 35 12/17/22 08:45 12/17/22 08:45 35 85 12/17/22 07:25 35 12/17/22 07:01 35 100 12/17/22 03:32 12/17/22 02:45 30 80 PG Care Time/CCT Total # of Minutes Spent Total Time Spent with Patient: Total time spent is greater than 50% in coordination of care (as documented) at patient's floor/unit and/or counseling patient: Coding Level of Care Code 30458 SUB INP/OBS CARE 3/50MIN Diagnoses Malignant pleural effusion J91.0 Non-small cell lung cancer C34.90 Trapped lung J98.19
[2022-12-17 15:30] LABS: Partial Thromboplastin Ratio 1.6
[2022-12-17 15:33] LABS: Partial Thromboplastin Time 43.9 Seconds (21.0-31.0)
--- NOTE | 2022-12-17 18:45 | Hospitalist Progress Note ---
Date of Service December 17, 2022 Assessment & Plan (1) Acute respiratory failure with hypoxia: (2) Malignant pleural effusion: (3) Non-small cell lung cancer: Plan: (4) Pulmonary embolism: (5) COPD, severe: Plan: per Dr. Olmstead's notes with addendum: Patient is a 52-year-old female with past medical history of smoking, recently diagnosed stage IV non-small cell cancer (admitted in [facility] from 11/14/2022 to 12/01/2022), recent PE on Eliquis. She also had thoracentesis done on 11/16/2022 Patient presented to the ED with shortness of breath. Chest x-ray on admission personally reviewed; complete opacification of right hemithorax. CT chest without large malignant right pleural effusion, complete heterogeneous consolidation of right lung. Metastatic supraclavicular, mediastinal and hilar lymphadenopathy. Severe pulmonary emphysema, hepatic and po possible adrenal metastasis. Metastatic lung cancer Acute respiratory failure with hypoxia History of recent PE History of severe COPD. Possible sepsis secondary to pneumonia. Presented with increasing shortness of breath. Chest x-ray on admission personally reviewed; complete opacification of right hemithorax. CT chest without large malignant right pleural effusion, complete heterogeneous consolidation of right lung. Metastatic supraclavicular, mediastinal and hilar lymphadenopathy. Severe pulmonary emphysema, hepatic and po possible adrenal metastasis. On presentation; leukocytosis present, lactate elevated, hypotensive 12/14 Still on high flow oxygen Status post Pleurx catheter placement 12/14, with drainage of 1 L pleural fluid Repeat chest x-ray showing minimal improvement Pleural fluid culture: Pending Blood cultures: Negative so far Continue with IV Zosyn Continue with Solu-Medrol 40 mg every 8 hours Continue DuoNeb Continue with usual Breo PleurX drainage per pulmonary service Palliative service on board 12/15 Still on high flow oxygen but clinically improved compared to yesterday Chest x-ray showing some improved aeration PleurX catheter drainage yesterday 2 L Pleurx catheter drain to gravity today Continue IV Zosyn Taper Solu-Medrol to every 12, continue DuoNeb, Breo 12/16 Pleurx catheter now with drain to gravity 700 cc output so far Continue IV Zosyn DC Solu-Medrol As needed DuoNeb Wean off high flow oxygen if possible 12/17 Chest x-ray showing increased pleural effusion High flow O2 settings increased Discussed with patient and family at the bedside Patient prefers to transition to DNR Continue Pleurx catheter to suction Monitor closely Status post right thoracentesis on December 13, 2022 with removal of 1.5 L of fluid. Repeat chest x-ray after thoracentesis personally reviewed; right hemothorax completely opacified. Slight improvement of leftward midline shift. Heparin to be resumed at 8 PM as per pulmonology. Discussed with pulmonology; patient has very advanced malignancy. Can consider Pleurx catheter tomorrow depending on how patient's look and feel. Discussed with palliative care; patient is currently in denial and is overwhelmed with diagnosis. Patient is started on opioids for your hunger and pain as per palliative care. Pleural fluid analysis : LDH highly elevated; exudative. Await cytology Oncology consulted; appreciate recommendation. Continue on Zosyn and vancomycin for now. DC Vanco if blood culture is negative. Continue antibiotic for 7 days. 12/17 Management per above Chronic conditions; COPDCT chest shows advanced emphysema; on DuoNebs every 6 hours. Continue home inhalers. As per the patient, patient was recently started on prednisone 10 mg once daily at [facility]. Anxietycontinue Cymbalta History of recent PEcontinue on heparin drip for now. Will restart Eliquis if patient is not undergoing any procedure related the hospitalization. Full code DVT prophylaxis heparin drip for PE Disposition: Pending Admission and Anticipated Discharge Date Admission Date: December 12, 2022 Subjective Follow-up for pleural effusion, etc. Seen resting in bed, comfortable, appears weak On high flow oxygen States breathing is about the same as yesterday Has intermittent cough Having some back pain today No other symptoms Review of Systems Review of Systems: all noted and negative except for above Physical Exam Physical Exam: General- oriented x 2, not in distress, breathing with no effort or accessory muscle use appears weak Eyes- anicteric Neck- no JVD Lungs-decreased breath sounds on the right, clear on the left Heart- normal rate, regular rhythm; no murmurs Abdomen- normal bowel sounds, nondistended, soft, nontender Extremities- no pretibial edema, no calf tenderness Neuro- alert, oriented x 3; no gross focal neurologic deficits Skin- warm & dry Results & Data Results & Data Vital Signs (Past 12 Hours) Vital Signs Temp Pulse Pulse Resp BP Pulse Ox Pulse Ox 12/17/22 17:52 114 H 16 93 12/17/22 17:00 92 12/17/22 16:00 36.5 C 118 H 22 108/71 90 12/17/22 15:58 109 H 12/17/22 15:47 111 H 17 90 12/17/22 15:25 110 H 25 H 85 L 12/17/22 14:59 111 H 24 89 L 12/17/22 13:37 117 H 22 89 L 12/17/22 11:27 120 H 17 90 12/17/22 10:54 36.8 C 113 H 22 101/71 91 12/17/22 08:45 114 H 12/17/22 08:45 12/17/22 07:25 36.7 C 121 H 23 96/59 L 92 12/17/22 07:01 120 H 26 H 90 O2 Del Method O2 Del Method O2 Flow Rate FiO2 12/17/22 17:52 100 12/17/22 17:00 BiPAP 12/17/22 16:00 BiPAP 12/17/22 15:58 12/17/22 15:47 100 12/17/22 15:25 High Flow Nasal Cannula 40 100 12/17/22 14:59 High Flow Nasal Cannula 40 100 12/17/22 13:37 High Flow Nasal Cannula 35 95 12/17/22 11:27 High Flow Nasal Cannula 35 90 12/17/22 10:54 High Flow Nasal Cannula 35 12/17/22 08:45 12/17/22 08:45 High Flow Nasal Cannula 35 85 12/17/22 07:25 High Flow Nasal Cannula 35 12/17/22 07:01 High Flow Nasal Cannula 35 100 all noted and reviewed including below
[2022-12-17] MEDS: MoRPHine SULFATE 2 MG/ML CARP IV PRN (19:45)
[2022-12-17] MEDS: MIRTAZAPINE TAB 15 MG TAB PO SCH (20:49)
[2022-12-17] MEDS ORDERED: XOPENEX/ATROVENT 1.25mg/0.5MG NEB COMBO NEB STA (21:01)
[2022-12-17] MEDS ORDERED: IPRATROPIUM BROMIDE NEB SOLN 0.02% 2.5 ML VIAL INH STA (21:01)
[2022-12-17] MEDS ORDERED: methylPREDNISolone 40 MG in SYRINGE 0 ML IV STA (21:01)
[2022-12-17] MEDS ORDERED: LEVALBUTEROL 1.25MG/0.5ML NEB INH STA (21:01)
[2022-12-17] MEDS ORDERED: MAGNESIUM SULFATE / D5W 1 GM/100 ML BAG IV ONE (21:01)
[2022-12-17] MEDS ORDERED: ALBUMIN 25% 100 mL 25 GM/100 ML VIAL IV ONE (21:30)
[2022-12-17 21:55] LABS: Base Excess ABG 14.8 mEq/L (-9-1.8); HCO3 ABG 42 mmol/L (19-24); Oxygen Saturation ABG 95.9 % (90-95); PCO2 ABG 60 mmHg (35-46); PO2 ABG 71 mmHg (80-95); pH ABG 7.45 (7.35-7.45)
[2022-12-17] MEDS: POTASSIUM CHLORIDE / WTR 10 MEQ/100 ML PLCT IV SCH ×2 (21:58→23:12)
[2022-12-17 22:05] LABS: Allen Test Pos (Pos)
[2022-12-18] MEDS: POTASSIUM CHLORIDE / WTR 10 MEQ/100 ML PLCT IV SCH ×2 (00:23→01:30)
[2022-12-18] MEDS: MoRPHine SULFATE IR 15 MG TAB (IMMEDIATE RELEASE) PO SCH ×4 (01:32→20:51)
[2022-12-18] MEDS: MoRPHine SULFATE 2 MG/ML CARP IV PRN (02:43)
[2022-12-18] MEDS ORDERED: MAGNESIUM SULFATE / D5W 1 GM/100 ML BAG IV ONE (03:45)
[2022-12-18] MEDS: PIPERACILLIN/TAZOBACTAM 4.5 GM in DEXTROSE 5% 100 ML IV SCH ×3 (04:52→20:41)
--- NOTE | 2022-12-18 07:52 | Hospitalist Progress Note ---
Date of Service December 18, 2022 Assessment & Plan (1) Non-small cell lung cancer: Plan: Cytology from pleural fluid reviewed here also consistent with lung adenocarcinoma. To supplement the molecular studies done at [place], microsatellite status was assessed and the patient's process is microsatellite stable further indicating no expected dramatic response to ICI. Overall conclusions are as expressed in detail in my note from Monday. Without candidacy for alternative immune or targeted treatment approaches, we should really need to see an improved performance status before considering cytotoxic chemotherapy options. Continue to hope for that improvement with ongoing aggressive treatment but have spoken with the patient and her family indicating that the unfortunate "catch-22" in that the cancer itself is a dramatic contributor to her dysfunctionality and yet she is not strong enough at this time to receive adequate dosing of cytotoxic chemotherapy to turn that process around. Plan Our cytology results do nothing to change the conclusions and recommendations expressed in the oncology note from December 16. Please see the perspectives offered and that more extensive discussion. I am away this coming week and it does not seem likely that there will be any changes in the role for oncology intervention within that timeframe. I will "sign off" for now but recheck patient's status upon my return to coordinate appropriate inpatient or outpatient follow-up. If there are acute questions while I am away, please contact the CCP for more immediate review. Admission and Anticipated Discharge Date Admission Date: December 12, 2022 Subjective Status quo Physical Exam Physical Exam: Per hospitalist Results & Data Results & Data Vital Signs (Past 12 Hours) Vital Signs Temp Pulse Pulse Resp BP Pulse Ox Pulse Ox 12/18/22 07:27 107 H 16 97 12/18/22 04:39 36.5 C 105 H 20 91/52 L 93 12/18/22 03:05 115 H 22 97 12/17/22 21:59 110 H 12/17/22 22:00 96 12/17/22 22:44 36.6 C 103 H 18 106/64 96 12/17/22 22:07 115 H 26 H 95 12/17/22 20:17 122 H 25 H 97 12/17/22 19:50 O2 Del Method O2 Del Method O2 Flow Rate O2 Flow Rate FiO2 12/18/22 07:27 High Flow Nasal Cannula 40 85 12/18/22 04:39 High Flow Nasal Cannula 40 100 12/18/22 03:05 High Flow Nasal Cannula 40 100 12/17/22 21:59 12/17/22 22:00 High Flow Nasal Cannula 40 12/17/22 22:44 High Flow Nasal Cannula 12/17/22 22:07 High Flow Nasal Cannula 40 100 12/17/22 20:17 High Flow Nasal Cannula 40 100 12/17/22 19:50 BiPAP 100 PG Care Time/CCT Total # of Minutes Spent Total Time Spent with Patient: Total time spent is greater than 50% in coordination of care (as documented) at patient's floor/unit and/or counseling patient: Coding Level of Care Code None Diagnoses Non-small cell lung cancer C34.90
--- NOTE | 2022-12-18 08:18 | XRay Report ---
XR chest 1V portable HISTORY: 52 years-old Female sob acute shortness of breath COMPARISON: 12/17/2022 TECHNIQUE: AP view of the chest FINDINGS: Cardiomediastinal and hilar silhouettes are unchanged. Large right pleural effusion is similar in siz e. Right lung volume loss and right upper lung consolidation also appear stable from prior. Small lef t pleural effusion suggested along with unchanged left basilar consolidation. Degenerative changes of the shoulders and spine. Unchanged positioning of the right- sided chest tube. Severe pulmonary emph ysema. IMPRESSION: 1. Stable appearance of the chest with large right pleural effusion and stable positioning of the rig ht-sided chest tube. 2. Volume loss with consolidation of the right lung. 3. Unchanged small left pleural effusion with mild left basilar consolidation. 4. Severe pulmonary emphysema. ACT 112: Negative or not required by law. The above report was generated using voice recognition software. It may contain grammatical, syntax o r spelling errors. Electronically signed by: Maikel Peñaloza M.D. 12/18/2022 8:16 AM
[2022-12-18 08:49] LABS: Partial Thromboplastin Ratio 1.9
[2022-12-18 08:55] LABS: Partial Thromboplastin Time 53.9 Seconds (21.0-31.0)
[2022-12-18] MEDS: HEPARIN SODIUM/DEXTROSE 25,000 UNITS/500 ML BAG IV SCH (09:01)
[2022-12-18] MEDS: DULoxetine HCL 20 MG CAP PO SCH (09:13)
[2022-12-18] MEDS: FLUTICASONE/VILANTEROL 100/25MCG 14 PUFFS/INHALER INH SCH (09:13)
--- NOTE | 2022-12-18 12:51 | XRay Report ---
XR chest 1V portable HISTORY: 52 years-old Female sob acute shortness of breath COMPARISON: 12/17/2022 TECHNIQUE: AP view of the chest FINDINGS: Cardiomediastinal and hilar silhouettes are unchanged. Large right pleural effusion is yanet lar in size. Right lung volume loss and right upper lung consolidation also appear stable from prior. Small left pleural effusion suggested along with unchanged left basilar consolidation. Degenerative changes of the shoulders and spine. Chest tube is again noted with distal tip projected over the righ t lung base medially. Severe pulmonary emphysema. IMPRESSION: 1. Stable appearance of the chest with large right pleural effusion and right-sided chest tube. 2. Volume loss with consolidation of the right lung. 3. Unchanged small left pleural effusion ACT 112: Negative or not required by law. The above report was generated using voice recognition software. It may contain grammatical, syntax o r spelling errors. Electronically signed by: Maikel Peñaloza M.D. 12/18/2022 12:49 PM
--- NOTE | 2022-12-18 14:05 | Pulmonology Progress Note ---
Date of Service December 18, 2022 Assessment & Plan (1) Malignant pleural effusion: Plan: Status post right Pleurx placement 12/14/2022. Chest x-ray personally reviewed from today which remains largely unchanged. Continue drainage to suction. She has evidence of trapped lung physiology due to her malignancy. Recommend repeating CBC to evaluate for worsening anemia or leukocytosis. Discussed with hospitalist Continue heparin for recent history of pulmonary embolism. Continue Zosyn for possible postobstructive pneumonia. Cytology from pleural fluid consistent with metastatic adenocarcinoma. Pleural fluid cultures negative to date. Her CODE STATUS has been changed to DNR/DNI per the hospitalist service after discussion with the patient. Her prognosis remains very poor. Her performance status is quite poor and she would likely not tolerate systemic chemotherapy. She would additionally not tolerate bronchoscopy at this time for evaluation of the airways given her significant oxygen demands. (2) Non-small cell lung cancer: (3) Trapped lung: (4) Postobstructive pneumonia: (5) Pulmonary embolism: Admission and Anticipated Discharge Date Admission Date: December 12, 2022 Subjective Patient seen and examined. She is essentially unchanged compared to yesterday. Continues to have severe dyspnea with minimal exertion. Remains on high flow oxygen at a flow rate of 40 L and FiO2 100%. PleurX catheter draining to suction at -20 cmH2O via the Rachel. Review of Systems Review of Systems: All systems reviewed & are unremarkable except as noted in HPI & below Physical Exam Physical Exam: Constitutional: Frail and ill-appearing female in mild distress. Eyes: Pupils are equal round and reactive to light. Conjunctivae are normal. Anicteric sclera. Ears nose, mouth and throat: Mallampati class 1. Normal posterior oropharynx. Uvula is midline. Neck: Trachea is midline. Visual inspection is normal. Respiratory: Minimal air entry on the right. Clear on the left. Cardiovascular: Regular rate and rhythm. No murmurs. No edema. Gastrointestinal: Normal bowel sounds, soft, nontender and nondistended. No hepatosplenomegaly noted. Musculoskeletal: No cyanosis. Patient is able to move all extremities. Strength is 5 out of 5 in the upper and lower extremities. Skin: No rashes, warm dry and intact. Pleurx catheter clean dry and intact. Neurologic: No obvious focal neurological deficits seen. Psychiatric: Alert and oriented x3 with a euthymic affect. Results & Data Results & Data Vital Signs (Past 12 Hours) Vital Signs Temp Pulse Pulse Resp BP Pulse Ox O2 Del Method 12/18/22 11:56 36.7 C 112 H 22 100/67 97 High Flow Nasal Cannula 12/18/22 11:25 106 H 16 94 High Flow Nasal Cannula 12/18/22 09:25 98 H 12/18/22 09:25 Other 12/18/22 07:53 36.6 C 111 H 24 102/58 L 97 High Flow Nasal Cannula 12/18/22 07:27 107 H 16 97 High Flow Nasal Cannula 12/18/22 04:39 36.5 C 105 H 20 91/52 L 93 High Flow Nasal Cannula 12/18/22 03:05 115 H 22 97 High Flow Nasal Cannula O2 Flow Rate FiO2 12/18/22 11:56 100 40 12/18/22 11:25 40 100 12/18/22 09:25 12/18/22 09:25 12/18/22 07:53 12/18/22 07:27 40 85 12/18/22 04:39 40 100 12/18/22 03:05 40 100 PG Care Time/CCT Total # of Minutes Spent Total Time Spent with Patient: Total time spent is greater than 50% in coordination of care (as documented) at patient's floor/unit and/or counseling patient: Coding Level of Care Code 32883 SUB INP/OBS CARE 3/50MIN Diagnoses Malignant pleural effusion J91.0 Non-small cell lung cancer C34.90 Trapped lung J98.19 Postobstructive pneumonia J18.9 Pulmonary embolism I26.99
--- NOTE | 2022-12-18 17:54 | Hospitalist Progress Note ---
Date of Service December 18, 2022 Assessment & Plan (1) Acute respiratory failure with hypoxia: (2) Malignant pleural effusion: (3) Non-small cell lung cancer: Plan: (4) Pulmonary embolism: (5) COPD, severe: Plan: per Dr. Olmstead's notes with addendum: Patient is a 52-year-old female with past medical history of smoking, recently diagnosed stage IV non-small cell cancer (admitted in [facility] from 11/14/2022 to 12/01/2022), recent PE on Eliquis. She also had thoracentesis done on 11/16/2022 Patient presented to the ED with shortness of breath. Chest x-ray on admission personally reviewed; complete opacification of right hemithorax. CT chest without large malignant right pleural effusion, complete heterogeneous consolidation of right lung. Metastatic supraclavicular, mediastinal and hilar lymphadenopathy. Severe pulmonary emphysema, hepatic and po possible adrenal metastasis. Metastatic lung cancer Acute respiratory failure with hypoxia History of recent PE History of severe COPD. Possible sepsis secondary to pneumonia. Presented with increasing shortness of breath. Chest x-ray on admission personally reviewed; complete opacification of right hemithorax. CT chest without large malignant right pleural effusion, complete heterogeneous consolidation of right lung. Metastatic supraclavicular, mediastinal and hilar lymphadenopathy. Severe pulmonary emphysema, hepatic and po possible adrenal metastasis. On presentation; leukocytosis present, lactate elevated, hypotensive 12/14 Still on high flow oxygen Status post Pleurx catheter placement 12/14, with drainage of 1 L pleural fluid Repeat chest x-ray showing minimal improvement Pleural fluid culture: Pending Blood cultures: Negative so far Continue with IV Zosyn Continue with Solu-Medrol 40 mg every 8 hours Continue DuoNeb Continue with usual Breo PleurX drainage per pulmonary service Palliative service on board 12/15 Still on high flow oxygen but clinically improved compared to yesterday Chest x-ray showing some improved aeration PleurX catheter drainage yesterday 2 L Pleurx catheter drain to gravity today Continue IV Zosyn Taper Solu-Medrol to every 12, continue DuoNeb, Breo 12/16 Pleurx catheter now with drain to gravity 700 cc output so far Continue IV Zosyn DC Solu-Medrol As needed DuoNeb Wean off high flow oxygen if possible 12/17 Chest x-ray showing increased pleural effusion High flow O2 settings increased Discussed with patient and family at the bedside Patient prefers to transition to DNR Continue Pleurx catheter to suction Monitor closely 12/18 Chest x-ray about the same as yesterday Required BiPAP overnight, currently on high flow O2 Pleurx catheter suction draining around 600 mL so far Continue to monitor closely We will discuss with palliative care service again tomorrow Status post right thoracentesis on December 13, 2022 with removal of 1.5 L of fluid. Repeat chest x-ray after thoracentesis personally reviewed; right hemothorax completely opacified. Slight improvement of leftward midline shift. Heparin to be resumed at 8 PM as per pulmonology. Discussed with pulmonology; patient has very advanced malignancy. Can consider Pleurx catheter tomorrow depending on how patient's look and feel. Discussed with palliative care; patient is currently in denial and is overwhelmed with diagnosis. Patient is started on opioids for your hunger and pain as per palliative care. Pleural fluid analysis : LDH highly elevated; exudative. Await cytology Oncology consulted; appreciate recommendation. Continue on Zosyn and vancomycin for now. DC Vanco if blood culture is negative. Continue antibiotic for 7 days. 12/18 Management per above Chronic conditions; COPDCT chest shows advanced emphysema; on DuoNebs every 6 hours. Continue home inhalers. As per the patient, patient was recently started on prednisone 10 mg once daily at [facility]. Anxietycontinue Cymbalta History of recent PEcontinue on heparin drip for now. Will restart Eliquis if patient is not undergoing any procedure related the hospitalization. Full code DVT prophylaxis heparin drip for PE Disposition: Pending Admission and Anticipated Discharge Date Admission Date: December 12, 2022 Subjective Follow-up for pleural effusion, lung cancer, etc. Seen sitting up in bed, not in distress, on high flow O2 Intermittently confused States she feels okay overall Denies active shortness of breath Reports increased pain today No other new symptoms Appetite still poor Review of Systems Review of Systems: all noted and negative except for above Physical Exam Physical Exam: General- oriented x 2, not in distress, speaks in sentences with no effort or accessory muscle use Appears weak, frail Eyes- anicteric Neck- no JVD Lungs-decreased breath sounds right lung mcdermott, clear on the left Heart- normal rate, regular rhythm; no murmurs Abdomen- normal bowel sounds, nondistended, soft, nontender Extremities- no pretibial edema, no calf tenderness Neuro- alert, oriented x 2; no gross focal neurologic deficits Skin- warm & dry Results & Data Results & Data Vital Signs (Past 12 Hours) Vital Signs Temp Pulse Pulse Resp BP Pulse Ox Pulse Ox 12/18/22 17:00 96 12/18/22 16:53 36.8 C 109 H 22 109/74 92 12/18/22 15:37 103 H 12/18/22 14:57 100 H 17 95 12/18/22 15:12 36.5 C 104 H 18 103/67 96 12/18/22 11:56 36.7 C 112 H 22 100/67 97 12/18/22 11:25 106 H 16 94 12/18/22 09:25 98 H 12/18/22 09:25 12/18/22 07:53 36.6 C 111 H 24 102/58 L 97 12/18/22 07:27 107 H 16 97 O2 Del Method O2 Del Method O2 Flow Rate FiO2 12/18/22 17:00 High Flow Nasal Cannula 12/18/22 16:53 High Flow Nasal Cannula 100 40 12/18/22 15:37 12/18/22 14:57 High Flow Nasal Cannula 40 100 12/18/22 15:12 High Flow Nasal Cannula 12/18/22 11:56 High Flow Nasal Cannula 100 40 12/18/22 11:25 High Flow Nasal Cannula 40 100 12/18/22 09:25 12/18/22 09:25 Other 12/18/22 07:53 High Flow Nasal Cannula 12/18/22 07:27 High Flow Nasal Cannula 40 85 all noted and reviewed including below
[2022-12-18] MEDS: MIRTAZAPINE TAB 15 MG TAB PO SCH (20:48)
[2022-12-18] MEDS: guaiFENesin SUGAR FREE 200 MG/10 ML UDC PO PRN (20:53)
[2022-12-19] MEDS: MoRPHine SULFATE IR 15 MG TAB (IMMEDIATE RELEASE) PO SCH ×4 (00:10→18:03)
[2022-12-19] MEDS: HEPARIN SODIUM/DEXTROSE 25,000 UNITS/500 ML BAG IV SCH (01:15)
[2022-12-19] MEDS: PIPERACILLIN/TAZOBACTAM 4.5 GM in DEXTROSE 5% 100 ML IV SCH ×2 (03:53→12:02)
[2022-12-19 07:53] LABS: Partial Thromboplastin Ratio 1.4; Partial Thromboplastin Time 39.9 Seconds (21.0-31.0)
[2022-12-19] MEDS: FLUTICASONE/VILANTEROL 100/25MCG 14 PUFFS/INHALER INH SCH (08:51)
[2022-12-19] MEDS: DULoxetine HCL 20 MG CAP PO SCH (08:51)
[2022-12-19] MEDS ORDERED: LORazepam 2 MG/1 ML VIAL IV PRN (14:24)
[2022-12-19] MEDS ORDERED: GLYCOPYRROLATE 0.2 MG/ML VIAL IV PRN (14:24)
[2022-12-19 16:28] LABS: Partial Thromboplastin Ratio 1.7
[2022-12-19 16:42] LABS: Partial Thromboplastin Time 46.9 Seconds (21.0-31.0)
--- NOTE | 2022-12-19 16:47 | Palliative Care Progress Note ---
Date of Service December 19, 2022 Assessment & Plan (1) Palliative care by specialist: (2) Advanced care planning/counseling discussion: Plan: A 50-minute [id number] ACP meeting was held with patient, spouse and daughter. Multiple visits made to patient's room today, including a discussion directly with her and then again with her, and daughter. Reviewed changes to date, escalating oxygen needs, now on high flow 100%. Family aware of her overall declining status and fluctuating mental status. and daughter both share that she was hallucinating through the weekend at times insisting on seeing certain objects or items in the room. He has been trying to obtain some additional information from her with regards to how to access their bank accounts etc. she was the one who managed all of this. I reviewed with him her questions to me for my earlier visit today with attention to why this it happened so quickly with such rapid decline. states this has been something they have been discussing as well. We reviewed the overall p rogression of her disease as well as the presentation of an existing advanced cancer. He shares that he is aware she will not be able to return home. He also shares that he is aware she likely has a short anticipated survival and that she will need to remain in the adult for the duration. We reviewed the option of adding inpatient hospice to her care versus a more direct transition to comfort care here in the hospital. He feels that before moving to hospice, even though he feels it is most appropriate, he wants to be able to speak to the family altogether. He would at this time like her to be moved to comfort care. No escalation of care. No bipap. No more labs. He would like periodic vitals q shift but no ongoing telemetry monitoring. We discussed the goals of hospice as a patient service and the goals of care; we discussed EOL trajectories and transitions darin the emotional impact of realizing mortality as a concrete reality from prior abstract considerations. Pt was reassured that no matter where they are along this trajectory, they are not alone - their medical team will remain by their side through their journey. Discussed the pros/cons of accepting help when especially weakened and distressed by pain-which would also help provide relief/decrease caregiver burden/strain. I reviewed that I believe she requires Hospice General Inpatient admission, GIP. A general inpatient care is a stay during which an individual who has elected hospice care receives general inpatient care in an inpatient facility for pain control or acute or chronic symptom management which cannot be managed in other settings. Short-term patient care may be provided in a participating hospital, hospice inpatient unit, or a participating SNF that additionally meets the special hospital standards regarding patient and staffing areas. General inpatient care (GIP) is allowed when the patient's medical condition warrants a short-term inpatient stay for symptom management. (As per [employer]'s (Condition of Participation) 40.1.5 Short Term Inpatient) The following guidelines have been identified as reasons to justify GIP, I have selected the indications for this patient in bold: 1. Pain evaluation to determine or adjust medication and determine appropriate treatment. 2. Intractable or protracted nausea inconsistent with management in the home. 3. Respiratory distress causing an unmanageable situation for patient in a home care setting. Patient has profound terminal respiratory distress and is now high flow dependent with an FiO2 of 100%. This cannot be delivered in a residential or fci facility setting. 4. Open lesion not responsive to home care and exacerbating symptom. 5. Rapid decline inconsistent with home care management related to varied factors such as bleeding. She has had a rapid decline with respiratory failure, worsening effusion, and a Pleurx drain with output that continues to be high volumes. 6. 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 This has been somewhat more subtle, she is getting increasingly confused, and beginning to hallucinate. She is mildly agitated and restless in bed but has not demonstrated any obvious combativeness at this time (or perhaps, yet.) (3) Cancer related pain: Plan: Patient feels pain and symptom management needs to be augmented further, I have adjusted both the dose and the frequency of her opioid therapy for both cancer related pain as well as dyspnea. (4) Dyspnea and respiratory abnormalities: Plan: See #3 above (5) Non-small cell lung cancer: (6) Pulmonary embolism: (7) Respiratory failure with hypoxia: (8) COPD, severe: (9) Anxiety: Plan * She is moved to comfort care. I have written orders. * No escalation, no BiPAP, no further labs or telemetry monitoring. * would like routine vitals done every shift. * Liberalize diet and allow p.o. as tolerated for pleasure and for comfort. It is noted that her p.o. intake has been steadily declining since admission, she has now been just taking sips of water or Sprite through the day but has not eaten solid food for nearly 2 to 3 weeks per . * Given her high flow dependence, it is anticipated she will in this hospital. She is a candidate for general inpatient hospice admission, however, wishes to speak with the family tonight before making any final decisions about moving to hospice. He will let the primary team know tomorrow with regards to his final decision and care management can then place a referral for inpatient hospice evaluation if it is desired. * I have notified nursing, primary team, oncology and pulmonary medicine. Thank you for allowing us to participate in the ongoing care of this patient. Please don't hesitate to call or page with any additional concerns. Dr. Zarina Arthur DNP Director, Palliative Care Admission and Anticipated Discharge Date Admission Date: December 12, 2022 Subjective Further decline over the weekend patient is now requiring FiO2 100% on high flow. She had a trial of BiPAP over the weekend but did not like it and preferred to use high flow only. She tells me she does not want to resume BiPAP. She is intermittently confused. During my time with patient, she insisted that she saw a white dog in the room and asked me why I did not know the dog's name. She tells me that her pain is worse and shortness of breath is at times a struggle. She would like her medicines increased to help her become more comfortable. When I asked her if she could tell me what her conversations with providers have been through the weekend, she replied "I do not even want to get into that, I do not want to think about it anymore. At this point I only have 2 questions: How did this happen and how to get bad so quickly? " Pleurx catheter continues to drain, currently around 700 mL for the day. It is now attached to suction Review of Systems Review of Systems: All systems reviewed & are unremarkable except as noted in Subjective Physical Exam Constitutional: + acute distress, + cachectic, + frail appearing and cooperative Eyes: PERRL and EOM intact bilaterally ENMT: external ear and nose normal, oropharynx normal Mouth: + poor dentition Neck: trachea midline, no thyromegaly Respiratory: broadly diminished lung sounds on right with coarse crackles, +crackles/rhonchi on left, signif effort, +conversational dyspnea with use of accessory muscles, faint wheeze L>R; hyperemic chest, no obvious mass or lesions, diffusely tender to anterior and posterior palpation Cardiovascular: S1S2, mod JVD Gastrointestinal (Abdomen): scaphoid. BS diminished Musculoskeletal: tripod positioning, seated cross legged in bed, at times will bend forward at waist. Gait was not assessed. Skin: pale, cool, some venous insuff changes BLE, no edema; nails are clubbing/spoon shaped + onychomycotic nails Neurologic: AAOx3, mood improved this afternoon with improved pain relief Psychiatric: Orientation: alert and cooperative Eye Contact: + fair eye contact Speech: + pressured speech Affect: + anxious affect Mood: + anxious mood and + angry mood Insight: + limited insight Judgment: + limited judgement Results & Data Vital Signs (Past 12 Hours) Vital Signs Temp Pulse Pulse Resp BP Pulse Ox O2 Del Method 12/19/22 11:05 112 H 24 92 High Flow Nasal Cannula 12/19/22 12:20 36.8 C 112 H 23 104/67 90 High Flow Nasal Cannula 12/19/22 09:15 107 H 12/19/22 09:15 High Flow Nasal Cannula 12/19/22 07:55 36.5 C 108 H 21 106/69 94 High Flow Nasal Cannula 12/19/22 06:00 114 H 18 91 High Flow Nasal Cannula O2 Flow Rate FiO2 12/19/22 11:05 40 100 12/19/22 12:20 40 100 12/19/22 09:15 12/19/22 09:15 12/19/22 07:55 40 100 12/19/22 06:00 40 100 Laboratory Results Data reviewed Diagnostic Findings Data reviewed PG Care Time/CCT Total # of Minutes Spent Total Time Spent: 115 Total Time Spent with Patient: Total time spent is greater than 50% in coordination of care (as documented) at patient's floor/unit and/or counseling patient: I spent 115minutes overall addressing this case: 15in medical data review/discussion with referring provider(s) and/or preparation for the visit 20 in direct interaction with the patient []and/or [] 50 Advance Care Planning/Goals of Care discussions as detailed above in note (must be >16min) 10 in subsequent review and synthesis of assessment and plan 10 in communicating with other providers regarding the patient's case: nursing, pulm, primary team, oncology Advanced Care Planning 89393 Advanced Care Planning 30 Min 69269 Advanced Care Planning Additional 30 Min [place] [address] SUB INP/OBS CARE 3/50MIN Patient Type Established History Comprehensive Exam Comprehensive Diagnoses Palliative care by specialist Z51.5 Advanced care planning/counseling discussion Z71.89 Cancer related pain G89.3 Dyspnea and respiratory abnormalities R06.00; R06.89 Non-small cell lung cancer C34.90 Pulmonary embolism I26.99 Respiratory failure with hypoxia J96.91 COPD, severe J44.9 Anxiety F41.9 Additional Codes Advanced Care Planning - 20428 Advanced Care Planning 30 Min: 91230 Advanced Care Planning 30 Min ([id number]) Advanced Care Planning - 78961 Advanced Care Planning Additional 30 Min: 78533 Advanced Care Planning Additional 30 Min ([id number])
--- NOTE | 2022-12-19 16:51 | Pulmonology Progress Note ---
Date of Service December 19, 2022 Assessment & Plan (1) Malignant pleural effusion: Plan: IMPRESSION: Unfortunate 52-year-old female presenting with malignant pleural effusion who is status post Pleurx catheter placement to the right-sided lung. She is continues to decline throughout hospitalization and is now comfort measures only. RECOMMENDATIONS: 1. Malignant pleural effusion - * Continue draining pleural fluid as tolerated. * Consider transitioning this to daily Pleurx drainage versus continuous drainage of the patient is progressing towards more of a palliative approach. * Otherwise, patient has been made comfort measures only per discussion with palliative care. * Will defer ongoing care discussions with primary service and palliative care medicine. 2. Hypoxic respiratory failure - * Continue with supplemental oxygen as requested by patient and family moving forward in the palliative care approach. Thank you for allowing us to participate in the care of this patient. Pulmonary medicine will sign off at this time. Please feel free to reach out to us if we can be of any further assistance. (2) Non-small cell lung cancer: (3) Trapped lung: (4) Postobstructive pneumonia: (5) Pulmonary embolism: Admission and Anticipated Discharge Date Admission Date: December 12, 2022 Supervising Physician Co-Signing Physician Notes Patient seen and examined. EMR reviewed. Discussed with GIL. Agree with assessment plan as noted. The patient is transitioning to full comfort measures. Would continue drainage of the Pleurx catheter as you are doing as a palliative measure although certainly 1 could make the case for discontinuation of drainage of pleural fluid. Pulmonary will sign off at this point in time. Feel free to contact us with questions or concerns. Subjective Patient seen and evaluated at bedside. She is somnolent, but answer simple yes/no questions. She complains of some pain at the insertion site of the Pleurx catheter. Otherwise, she feels as though her pain and anxiety been well controlled. Physical Exam Physical Exam: VITAL SIGNS - Vital signs and nursing notes were reviewed. GENERAL - 52-year-old cachectic appearing female. SKIN -RIGHT-sided Pleurx catheter site is clean, dry, intact. LUNGS - Auscultation reveals diminished breath sounds to the RIGHT sided lung mcdermott. CARDIAC - RRR with S1/S2. No murmur, rubs, or gallops appreciated. Results & Data Results & Data Vital Signs (Past 12 Hours) Vital Signs Temp Pulse Pulse Resp BP Pulse Ox O2 Del Method 12/19/22 11:05 112 H 24 92 High Flow Nasal Cannula 12/19/22 12:20 36.8 C 112 H 23 104/67 90 High Flow Nasal Cannula 12/19/22 09:15 107 H 12/19/22 09:15 High Flow Nasal Cannula 12/19/22 07:55 36.5 C 108 H 21 106/69 94 High Flow Nasal Cannula 12/19/22 06:00 114 H 18 91 High Flow Nasal Cannula O2 Flow Rate FiO2 12/19/22 11:05 40 100 12/19/22 12:20 40 100 12/19/22 09:15 12/19/22 09:15 12/19/22 07:55 40 100 12/19/22 06:00 40 100 PG Care Time/CCT Total # of Minutes Spent Total Time Spent with Patient: Total time spent is greater than 50% in coordination of care (as documented) at patient's floor/unit and/or counseling patient: Coding Level of Care Code 45806 SUB INP/OBS CARE 2/35MIN Diagnoses Malignant pleural effusion J91.0 Non-small cell lung cancer C34.90 Trapped lung J98.19 Postobstructive pneumonia J18.9 Pulmonary embolism I26.99
[2022-12-19] MEDS: guaiFENesin SUGAR FREE 200 MG/10 ML UDC PO PRN (18:03)
--- NOTE | 2022-12-19 18:10 | Hospitalist Progress Note ---
Date of Service December 19, 2022 Assessment & Plan (1) Acute respiratory failure with hypoxia: (2) Malignant pleural effusion: (3) Non-small cell lung cancer: Plan: (4) Pulmonary embolism: (5) COPD, severe: Plan: per Dr. Olmstead's notes with addendum: Patient is a 52-year-old female with past medical history of smoking, recently diagnosed stage IV non-small cell cancer (admitted in [facility] from 11/14/2022 to 12/01/2022), recent PE on Eliquis. She also had thoracentesis done on 11/16/2022 Patient presented to the ED with shortness of breath. Chest x-ray on admission personally reviewed; complete opacification of right hemithorax. CT chest without large malignant right pleural effusion, complete heterogeneous consolidation of right lung. Metastatic supraclavicular, mediastinal and hilar lymphadenopathy. Severe pulmonary emphysema, hepatic and po possible adrenal metastasis. Metastatic lung cancer Acute respiratory failure with hypoxia History of recent PE History of severe COPD. Possible sepsis secondary to pneumonia. Presented with increasing shortness of breath. Chest x-ray on admission personally reviewed; complete opacification of right hemithorax. CT chest without large malignant right pleural effusion, complete heterogeneous consolidation of right lung. Metastatic supraclavicular, mediastinal and hilar lymphadenopathy. Severe pulmonary emphysema, hepatic and po possible adrenal metastasis. On presentation; leukocytosis present, lactate elevated, hypotensive 12/14 Still on high flow oxygen Status post Pleurx catheter placement 12/14, with drainage of 1 L pleural fluid Repeat chest x-ray showing minimal improvement Pleural fluid culture: Pending Blood cultures: Negative so far Continue with IV Zosyn Continue with Solu-Medrol 40 mg every 8 hours Continue DuoNeb Continue with usual Breo PleurX drainage per pulmonary service Palliative service on board 12/15 Still on high flow oxygen but clinically improved compared to yesterday Chest x-ray showing some improved aeration PleurX catheter drainage yesterday 2 L Pleurx catheter drain to gravity today Continue IV Zosyn Taper Solu-Medrol to every 12, continue DuoNeb, Breo 12/16 Pleurx catheter now with drain to gravity 700 cc output so far Continue IV Zosyn DC Solu-Medrol As needed DuoNeb Wean off high flow oxygen if possible 12/17 Chest x-ray showing increased pleural effusion High flow O2 settings increased Discussed with patient and family at the bedside Patient prefers to transition to DNR Continue Pleurx catheter to suction Monitor closely 12/18 Chest x-ray about the same as yesterday Required BiPAP overnight, currently on high flow O2 Pleurx catheter suction draining around 600 mL so far Continue to monitor closely We will discuss with palliative care service again tomorrow Status post right thoracentesis on December 13, 2022 with removal of 1.5 L of fluid. Repeat chest x-ray after thoracentesis personally reviewed; right hemothorax completely opacified. Slight improvement of leftward midline shift. Heparin to be resumed at 8 PM as per pulmonology. Discussed with pulmonology; patient has very advanced malignancy. Can consider Pleurx catheter tomorrow depending on how patient's look and feel. Discussed with palliative care; patient is currently in denial and is overwhelmed with diagnosis. Patient is started on opioids for your hunger and pain as per palliative care. Pleural fluid analysis : LDH highly elevated; exudative. Await cytology Oncology consulted; appreciate recommendation. Continue on Zosyn and vancomycin for now. DC Vanco if blood culture is negative. Continue antibiotic for 7 days. 12/18 Management per above Chronic conditions; COPDCT chest shows advanced emphysema; on DuoNebs every 6 hours. Continue home inhalers. As per the patient, patient was recently started on prednisone [address] [facility]. Anxietycontinue Cymbalta History of recent PEcontinue on heparin drip for now. Will restart Eliquis if patient is not undergoing any procedure related the hospitalization. Full code DVT prophylaxis heparin drip for PE Disposition: Pending Admission and Anticipated Discharge Date Admission Date: December 12, 2022 Results & Data Results & Data Vital Signs (Past 12 Hours) Vital Signs Temp Pulse Pulse Resp BP Pulse Ox O2 Del Method 12/19/22 11:05 112 H 24 92 High Flow Nasal Cannula 12/19/22 12:20 36.8 C 112 H 23 104/67 90 High Flow Nasal Cannula 12/19/22 09:15 107 H 12/19/22 09:15 High Flow Nasal Cannula 12/19/22 07:55 36.5 C 108 H 21 106/69 94 High Flow Nasal Cannula O2 Flow Rate FiO2 12/19/22 11:05 40 100 12/19/22 12:20 40 100 12/19/22 09:15 12/19/22 09:15 12/19/22 07:55 40 100
[2022-12-19] MEDS: MIRTAZAPINE TAB 15 MG TAB PO SCH (21:01)
[2022-12-20] MEDS: MoRPHine SULFATE IR 15 MG TAB (IMMEDIATE RELEASE) PO SCH ×3 (00:02→13:10)
[2022-12-20] MEDS: MoRPHine SULFATE 2 MG/ML CARP IV PRN ×4 (01:36→15:30)
[2022-12-20] MEDS: DULoxetine HCL 20 MG CAP PO SCH (08:17)
--- NOTE | 2022-12-20 10:41 | Palliative Care Progress Note ---
Date of Service December 20, 2022 Assessment & Plan (1) Palliative care by specialist: (2) Advanced care planning/counseling discussion: Plan: Supportive counseling provided. Dying process reviewed: Discussed changes pt may move through in the dying process including but not limited to sleeping more, disorientation when awake, restlessness, diminished senses/inability to respond to stimulus although ability to be aware of them remains intact longer, changes in body temperatures, skin changes/mottling/cyanosis, respiratory pattern changes, oral secretions. Family verbalized understanding. The goal is to assure a peaceful . Anticipate GIP eval, justifications for GIP in my note from yesterday- please review (3) Cancer related pain: Plan: current regimen/no change desired per family (4) Dyspnea and respiratory abnormalities: Plan: See #3 above (5) Non-small cell lung cancer: (6) Pulmonary embolism: (7) Respiratory failure with hypoxia: (8) COPD, severe: (9) Anxiety: Plan Sunshine will not survive this admission and she will not live more than a few minutes if HFNC is stopped completely. GIP hospice eval is pending, see my note from yesterday for HIP qualifying criteria; her resp distress is worse today but family feel no infusion is needed at this time She is still on monitors but this is not needed for comfort. I had ordered this to be stopped yesterday. Unclear why they remain in use. Please note: I am out of office 12/21 - 12/24. Dr Campbell is covering. Thank you for allowing us to participate in the ongoing care of this patient. Please don't hesitate to call or page with any additional concerns. Dr. Zarina Arthur DNP Director, Palliative Care Admission and Anticipated Discharge Date Admission Date: December 12, 2022 Subjective comfort care family called in overnight, acute worsening resp failure remains on HFNC 100% FiO2, less alert, sometimes more agitated family have asked for hospice GIP eval. Review of Systems Review of Systems: Unobtainable due to reduced consciousness Physical Exam Constitutional: + acute distress, + ill appearing, + cachectic, + frail appearing, cooperative, + in distress and + lethargic ENMT: Mouth: + dry oral mucous membranes Neck: trachea midline Respiratory: + respiratory distress, + labored breathing, + uses accessory muscles and + tachypneic Auscultation: + diminished lung sounds and + crackles broadly diminished lung sounds on right with coarse crackles, +crackles/rhonchi on left, signif effort, +conversational dyspnea with use of accessory muscles, faint wheeze L>R; hyperemic chest, no obvious mass or lesions, diffusely tender to anterior and posterior palpation Cardiovascular: Rate/Rhythm: + tachycardic and + irregularly irregular S1S2, mod JVD Gastrointestinal (Abdomen): Inspection/Auscultation: + scaphoid scaphoid. BS diminished Musculoskeletal: tripod positioning, seated cross legged in bed, at times will bend forward at waist. Gait was not assessed. Skin: + turgor decreased, + skin atrophy, + dry skin and + pallor pale, cool, some venous insuff changes BLE, no edema; nails are clubbing/spoon shaped + onychomycotic nails Neurologic: lethargic, opens eyes to voice, unable to follow commands, speech garbled Results & Data Vital Signs (Past 12 Hours) Vital Signs Temp Pulse Pulse Resp BP Pulse Ox O2 Del Method 12/20/22 08:10 High Flow Nasal Cannula 12/20/22 07:00 113 H 12/20/22 07:32 115 H 58 H 85 L High Flow Nasal Cannula 12/20/22 03:33 110 H 28 H 83 L High Flow Nasal Cannula 12/20/22 00:02 19 12/20/22 00:02 91 High Flow Nasal Cannula 12/19/22 22:51 36.3 C L 102 H 16 121/79 93 High Flow Nasal Cannula 12/19/22 23:17 113 H 24 92 High Flow Nasal Cannula O2 Flow Rate FiO2 12/20/22 08:10 40 100 12/20/22 07:00 12/20/22 07:32 40 100 12/20/22 03:33 40 100 12/20/22 00:02 12/20/22 00:02 40 12/19/22 22:51 40 100 12/19/22 23:17 40 100 PG Care Time/CCT Total # of Minutes Spent Total Time Spent: 60 Total Time Spent with Patient: Total time spent is greater than 50% in coordination of care (as documented) at patient's floor/unit and/or counseling patient: [place] [address] SUB INP/OBS CARE 3/50MIN Patient Type Established History Comprehensive Exam Comprehensive Medical Decision Making High Complexity Diagnoses Palliative care by specialist Z51.5 Advanced care planning/counseling discussion Z71.89 Cancer related pain G89.3 Dyspnea and respiratory abnormalities R06.00; R06.89 Non-small cell lung cancer C34.90 Pulmonary embolism I26.99 Respiratory failure with hypoxia J96.91 COPD, severe J44.9 Anxiety F41.9
[2022-12-20] MEDS ORDERED: LORazepam 0.5 MG TAB PO PRN (16:23)
[2022-12-20] MEDS ORDERED: NALOXONE HCL 0.4 MG/1 ML VIAL/CARP IV PRN (16:23)
[2022-12-20] MEDS ORDERED: LORazepam 2 MG/1 ML VIAL IV PRN ×2 (16:23→22:55)
[2022-12-20] MEDS ORDERED: ONDANSETRON INJ 2 MG/ML 2 ML VIAL IV PRN (16:23)
[2022-12-20] MEDS ORDERED: ONDANSETRON 4 MG OD TAB SL PRN (16:23)
[2022-12-20] MEDS ORDERED: MoRPHine SULF/NSS 250 MG/250 ML BTL IV SCH (16:30)
[2022-12-20] MEDS ORDERED: SODIUM CHLORIDE 0.9% 1000ML 1,000 ML IV SCH (16:30)
--- NOTE | 2022-12-20 16:33 | Palliative Care Progress Note ---
Date of Service December 20, 2022 Assessment & Plan (1) Palliative care by specialist: (2) Dyspnea and respiratory abnormalities: Plan Pt is using 60mg PO MS daily along with 14mg IV MS in past 24hr, this is about 34mg IV MS equivalent or 1.4mg per hour infusion. This is not providing adequate relief and she is experiencing terminal air hunger from very severe COPD and advanced/terminal lung cancer. Therefore, I will start a MS 2mg per hour infusion with 4mg IV bous bladem bagh prn severe air hunger q10min. orders written, reviewed with nursing. Thank you for allowing us to participate in the ongoing care of this patient. Please don't hesitate to call or page with any additional concerns. Dr. Zarina Arthur DNP Director, Palliative Care Admission and Anticipated Discharge Date Admission Date: December 12, 2022 Subjective notifierd by nursing pt with more resp distress and effort, requesting MS infusion for comfort. she is intermittently alert but not consistently. family remain at bedside, asking pt to be made more comfortable and relieve her air hunger/terminal dyspnea Results & Data Vital Signs (Past 12 Hours) Vital Signs Pulse Pulse Resp Pulse Ox O2 Del Method O2 Flow Rate FiO2 12/20/22 15:30 111 H 26 H 83 L Room Air, High Flow Nasal Cannula 40 12/20/22 15:19 High Flow Nasal Cannula 40 100 12/20/22 08:15 33 H 12/20/22 13:50 20 12/20/22 11:14 High Flow Nasal Cannula 40 100 12/20/22 08:10 High Flow Nasal Cannula 40 100 12/20/22 07:00 113 H 12/20/22 07:32 115 H 58 H 85 L High Flow Nasal Cannula 40 100 PG Care Time/CCT Total # of Minutes Spent Total Time Spent with Patient: Total time spent is greater than 50% in coordination of care (as documented) at patient's floor/unit and/or counseling patient: Coding Level of Care Code 61442 SUB INP/OBS CARE 2/35MIN Diagnoses Palliative care by specialist Z51.5 Dyspnea and respiratory abnormalities R06.00; R06.89
--- NOTE | 2022-12-20 18:28 | Hospitalist Progress Note ---
Date of Service December 20, 2022 Assessment & Plan (1) Acute respiratory failure with hypoxia: (2) Malignant pleural effusion: (3) Non-small cell lung cancer: Plan: (4) Pulmonary embolism: (5) COPD, severe: Plan: per Dr. Olmstead's notes with addendum: Patient is a 52-year-old female with past medical history of smoking, recently diagnosed stage IV non-small cell cancer (admitted in [facility] from 11/14/2022 to 12/01/2022), recent PE on Eliquis. She also had thoracentesis done on 11/16/2022 Patient presented to the ED with shortness of breath. Chest x-ray on admission personally reviewed; complete opacification of right hemithorax. CT chest without large malignant right pleural effusion, complete heterogeneous consolidation of right lung. Metastatic supraclavicular, mediastinal and hilar lymphadenopathy. Severe pulmonary emphysema, hepatic and po possible adrenal metastasis. Metastatic lung cancer Acute respiratory failure with hypoxia History of recent PE History of severe COPD. Possible sepsis secondary to pneumonia. Presented with increasing shortness of breath. Chest x-ray on admission personally reviewed; complete opacification of right hemithorax. CT chest without large malignant right pleural effusion, complete heterogeneous consolidation of right lung. Metastatic supraclavicular, mediastinal and hilar lymphadenopathy. Severe pulmonary emphysema, hepatic and po possible adrenal metastasis. On presentation; leukocytosis present, lactate elevated, hypotensive Patient placed on high flow oxygen Status postplacement of Pleurx catheter 12/14 with drainage of pleural fluid Serial drainage of Pleurx catheter performed, subsequently placed on continuous suction Despite these measures, patient's pleural effusion continued to progress Also given IV Zosyn, Solu-Medrol, DuoNebs Tubular Riveter and palliative care service on board Discussed with patient and her family, patient transition to comfort measures status on December 19, 2022 Morphine drip started today for better control of symptoms S Chronic conditions; COPDCT chest shows advanced emphysema Anxiety History of recent PEpatient placed on heparin drip DNR Disposition: Pending Admission and Anticipated Discharge Date Admission Date: December 12, 2022 Subjective Follow-up for comfort measures status, etc. Seen resting in bed, sleeping but easily awakened Patient remains on high flow O2 States she feels okay, patient seems somewhat confused Tachypnea observed Denies pain No other issues per rental representative of Systems Review of Systems: all noted and negative except for above Physical Exam Physical Exam: General-appears weak, frail, speaking in phrases with accessory muscle use Lungs-decreased breath sounds on the right Heart-mild tachycardia Abdomen- normal bowel sounds, nondistended, soft, nontender Extremities- no pretibial edema, no calf tenderness Neuro-somewhat confused, drowsy Skin- warm & dry Results & Data Results & Data Vital Signs (Past 12 Hours) Vital Signs Pulse Pulse Resp Pulse Ox O2 Del Method O2 Flow Rate FiO2 12/20/22 15:30 111 H 26 H 83 L Room Air, High Flow Nasal Cannula 40 12/20/22 15:19 High Flow Nasal Cannula 40 100 12/20/22 08:15 33 H 12/20/22 13:50 20 12/20/22 11:14 High Flow Nasal Cannula 40 100 12/20/22 08:10 High Flow Nasal Cannula 40 100 12/20/22 07:00 113 H 12/20/22 07:32 115 H 58 H 85 L High Flow Nasal Cannula 40 100
[2022-12-20] MEDS: HEPARIN SODIUM/DEXTROSE 25,000 UNITS/500 ML BAG IV SCH ×3 (19:02→19:06)
[2022-12-20] MEDS ORDERED: MoRPHine SULFATE 4 MG/ML 1 ML CARP\\VIAL IV PRN (23:02)
[2022-12-20] MEDS: MoRPHine BOLUS from BAG IV PRN ×3 (23:06→23:46)
--- NOTE | 2022-12-21 00:02 | Discharge Summary ---
Date of Service December 21, 2022 Admission HPI Per Admitting Provider Ms Sunshine Hager is a 52 year old female with a 30-40 pack year smoking history was recently admitted at [facility] from 11/14/22-12/01/22 for cough and shortness of breath. There, she was diagnosed with stage 4 non small cell lung cancer on the right (thoracentesis 11/16/22 reportedly 1L fluid removed) as well as a PE on the right side. She received therapeutic lovenox while hospitalized and transitioned to eliquis at discharge. She reports that at the time of discharge she was using 10L NC at rest and 15L NC with exertion. She presents to [facility] today with worsening shortness of breath. She has not seen anyone in follow up since her discharge from [facility] and didn't know she had a follow up appointment with her PCP (12/07) and Palliative Care (12/13), she didn't know who to follow up with for her malignancy and pleural effusion "they told me I need a PET scan, that I need to see a lung doctor and also get chemotherapy but nothing has been set up". She stated they mentioned a catheter (PleurX?) but that on repeat imaging she had no recurrent pleural effusion so one wasn't placed. Of note, she was unable to get an MRI there due to severe claustrophobia. PMHx- none PSHx- thoracentesis SHx- 30-40 pack year smoking history, social drinker, no illicit drugs FHx- lung cancer in father who was also a smoker Discharge Data Consultations 12/12/22 17:55 ED Decision to Admit Stat 12/12/22 22:08 Consult Pulmonology Routine 12/13/22 09:48 Consult Oncology Routine Consult Palliative Care Routine 12/20/22 16:23 Consult Palliative Care Routine Hospital Course (1) Metastatic non-small cell lung cancer: (1) Acute respiratory failure with hypoxia: (2) Malignant pleural effusion: (3) Non-small cell lung cancer: Plan: (4) Pulmonary embolism: (5) COPD, severe: Plan: per Dr. Olmstead's notes with addendum: Patient is a 52-year-old female with past medical history of smoking, recently diagnosed stage IV non-small cell cancer (admitted in [facility] from 11/14/2022 to 12/01/2022), recent PE on Eliquis. She also had thoracentesis done on 11/16/2022 Patient presented to the ED with shortness of breath. Chest x-ray on admission personally reviewed; complete opacification of right h emithorax. CT chest without large malignant right pleural effusion, complete heterogeneous consolidation of right lung. Metastatic supraclavicular, mediastinal and hilar lymphadenopathy. Severe pulmonary emphysema, hepatic and po possible adrenal metastasis. Metastatic lung cancer Acute respiratory failure with hypoxia History of recent PE History of severe COPD. Possible sepsis secondary to pneumonia. Presented with increasing shortness of breath. Chest x-ray on admission personally reviewed; complete opacification of right hemithorax. CT chest without large malignant right pleural effusion, complete heterogeneous consolidation of right lung. Metastatic supraclavicular, mediastinal and hilar lymphadenopathy. Severe pulmonary emphysema, hepatic and po possible adrenal metastasis. On presentation; leukocytosis present, lactate elevated, hypotensive Patient placed on high flow oxygen Status postplacement of Pleurx catheter 12/14 with drainage of pleural fluid Serial drainage of Pleurx catheter performed, subsequently placed on continuous suction Despite these measures, patient's pleural effusion continued to progress Also given IV Zosyn, Solu-Medrol, DuJose Financial Reporting Director and palliative care service on board Discussed with patient and her family, patient transition to comfort measures status on December 19, 2022 Morphine drip started today for better control of symptoms (Preceding documentation as per AM provider.) 12/21/2022 Patient pronounced by nursing staff at 12 AM. Total time to prepare this discharge summary was less than 10 minutes.
== END 2022-12-21 | disposition expired | DRG 180 ==
LOC: ED 16:08 → SUATTDRO 20:31 → 2S 20:31